=== PATIENT | female | born 1930 | race Caucasian/White ===

== ENCOUNTER → 2017-09-21 | Outpatient (CLI) | payer MEDICARE, OTHER ==
[~2017-09-21] MED LIST: ACHD5005 PO; AMOX-358 PO; ANTIBIOTIC PO; ASP81CT PO; ASP81TEC PO; ASPI-892 PO; CALC500T30 PO; CLOP75TA PO; CPR500T PO; EST45C VG; FNT25TD TD; GBPN300C PO; GBPN600T PO; HCT25T PO; HYDR1TAB PO; ITRACONAZOLE PO; LABE200T3 PO; LBT200T PO; LIDOCAINE; MELO-195 PO; NYST1000 PO; OXB5TCR PO; OXYB10TA PO; OXYC-188 PO; PROP60CA17 PO; PROP60TA16 PO; SIMV40TA2 PO; SIMV80TA3 PO; SULF1TAB35 PO
== END ==
LOC: CARD 10:25
PROVIDERS: ATTEND Internal Medicine
DX: I48.91 Unspecified atrial fibrillation (principal)
CPT/HCPCS: 93306

== ENCOUNTER 2017-11-02 10:17 | Emergency (ER) | payer MEDICARE ==
[~2017-11-02] VITALS: Ht 160 cm; Wt 74.5 kg
[~2017-11-02 10:17] MED LIST changes: -AMOX-358 PO
--- OUTSIDE RECORDS SUMMARY | 2017-11-02 10:25 | XMS REPORT | Clinical Summary ---
Author Author [facility] Organization [facility] Address Unknown Phone Unavailable Care Team Providers Care Lead Radiologic Technologist Name Role Phone Sheldon Spann MD Unavailable Krish Saba MD PCP Source Comments Some departments are not documenting in the electronic medical record. If you do not see the information that you expected, contact Release of Information in the Health Information Management department at [phone] for further assistance in locating additional records.[facility] Allergies Active Allergy Reactions Severity Noted Date Comments Sulfamethoxazole-Trimetho ITCHING 11/06/2011 prim Current Medications Prescription Sig. Disp. Refills Start End Date Status Date carvedilol (COREG) 12.5 Take 12.5 mg by mouth Active mg tablet twice daily with meals. clopidogrel (PLAVIX) 75 Take 75 mg by mouth Active mg daily. aspirin EC 81 mg tablet Take 81 mg by mouth Active daily. hydrochlorothiazide Take 25 mg by mouth Active (HYDRODIURIL) 25 mg daily. tablet gabapentin (NEURONTIN) Take 1,200 mg by mouth at Active 600 mg tablet bedtime daily. ERGOCALCIFEROL (VITAMIN Take 1 Tab by mouth Active D2) (VITAMIN D PO) daily. ACETAMINOPHEN (TYLENOL Take 2 Tabs by mouth Active ARTHRITIS PAIN PO) daily as needed. trimethoprim/sulfamethoxa Take 1 Tab by mouth twice Active zole (BACTRIM DS) 160/800 daily. mg tablet docusate (COLACE) 100 mg Take 1 Cap by mouth twice 90 Cap 0 08/12/19 Active capsule daily. 12 oxyCODONE-acetaminophen Take 1-2 Tabs by mouth 40 Tab 0 11/07/19 Active (PERCOCET; ENDOCET; every 4 hours as needed 12 ROXICET) 5/325 mg tablet for Pain. Max 12 tabs/day Active Problems Not on file Social History Tobacco Use Types Packs/Day Years Used Date Former Smoker Cigarettes 1 65 Quit: 06/29/2011 Alcohol Use Drinks/Week oz/Week Comments No Sex Assigned at Date Recorded Not on file Last Filed Vital Signs Vital Sign Reading Time Taken Blood Pressure 130/62 11/07/2011 7:20 AM CDT Pulse 61 11/07/2011 7:20 AM CDT Temperature 36.4 C (97.6 F) 11/07/2011 7:20 AM CDT Respiratory Rate - - Oxygen Saturation 92% 11/07/2011 7:20 AM CDT Inhaled Oxygen - - Concentration Weight 75.8 kg (167 lb) 11/06/2011 3:50 PM CDT Height 160 cm (5' 3") 11/06/2011 3:50 PM CDT Body Mass Index 29.58 11/06/2011 3:50 PM CDT Plan of Treatment Health Maintenance Due Date Last Done Comments PHYSICAL (COMPREHENSIVE) 1937 EXAM PERTUSSIS VACCINE 1942 TETANUS VACCINE 1948 SHINGLES VACCINE 1991 OSTEOPOROSIS SCREENING 1996 PNEUMONIA (PCV13/PPSV23) 1996 VACCINES (1 of 2 - PCV13) INFLUENZA VACCINE 02/25/2018 Results Not on filefrom Last 3 Months
[2017-11-02] MEDS ORDERED: NS IV 1000 ML 1,000 ML IV ONE (10:39)
[2017-11-02 11:04] LABS: BASOPHILS # (AUTO) 0.1 10^3/uL (0.0-0.1); BASOPHILS % (AUTO) 1 % (0-10); EOSINOPHILS # (AUTO) 0.1 10^3/uL (0.0-0.3); EOSINOPHILS % (AUTO) 1 % (0-10); HEMATOCRIT 50 % (35-52); HEMOGLOBIN 17.1 G/DL (11.5-16.0); LYMPHOCYTES # (AUTO) 1.9 X 10^3 (1.0-4.0); LYMPHOCYTES % (AUTO) 22 % (12-44); MEAN CORPUSCULAR HEMOGLOBIN 32 PG (25-34); MEAN CORPUSCULAR HGB CONC 34 G/DL (32-36); MEAN CORPUSCULAR VOLUME 95 FL (80-99); MEAN PLATELET VOLUME 11.7 FL (7.4-10.4); MONOCYTES # (AUTO) 0.7 X 10^3 (0.0-1.0); MONOCYTES % (AUTO) 9 % (0-12); NEUTROPHILS # (AUTO) 5.8 X 10^3 (1.8-7.8); NEUTROPHILS % (AUTO) 67 % (42-75); PLATELET COUNT 215 10^3/uL (130-400); RED BLOOD COUNT 5.27 10^6/uL (4.35-5.85); RED CELL DISTRIBUTION WIDTH 15.2 % (10.0-14.5); WHITE BLOOD COUNT 8.6 10^3/uL (4.3-11.0)
--- NOTE | 2017-11-02 11:09 | ED General ---
General Stated Complaint: RT FOOT PAIN Source of Information: Patient, Family Exam Limitations: No Limitations History of Present Illness Date Seen by Provider: Nov 02, 2017 Time Seen by Provider: 11:00 Initial Comments Here with report of bilateral foot pain and erythema with right greater than left. Has been treated for ulcers on her feet. Apparently started as blisters and have been treated by her primary care physician, Dr. Saba. Denies fevers chills. States that she has not been eating or drinking well. Arrives with heart rate in the range of 115-140. Patient does not remember history of fast heart rate and she apparently is in atrial fibrillation right now. She denies previous history of this as well. She arrives with caregiver. Denies nausea, vomiting, diarrhea or chest pain. Timing/Duration: 3-4 Days Severity: Moderate Associated Systoms: No Cough, No Fever/Chills, No Nausea/Vomiting, No Shortness of Air, No Weakness Allergies and Home Medications Allergies Coded Allergies: Codeine (Unverified Allergy, Mild, sore throat, 03/23/13) Sulfamethoxazole (Verified Adverse Reaction, RASH, 03/23/13) trimethoprim (Verified Adverse Reaction, RASH, 03/23/13) Home Medications Aspirin 81 Mg Tablet.dr, 81 MG PO DAILY, (Reported) Clopidogrel Bisulfate 75 Mg Tablet, 75 MG PO DAILY, (Reported) Estrogens Conjugated 45 Gm Cr, 1 GM VG HS, (Reported) HOLD FOR 1 WEEK THEN RESUME Gabapentin 600 Mg Tab, 600 MG PO HS, (Reported) Hydrochlorothiazide 25 Mg Tab, 25 MG PO DAILY, (Reported) Patient Home Medication List Home Medication List Reviewed: Yes (changed his Xarelto and off Plavix.) Review of Systems Constitutional: see HPI; No chills, No fever EENTM: no symptoms reported Respiratory: no symptoms reported Cardiovascular: see HPI; No chest pain, No palpitations Gastrointestinal: No abdominal pain, No nausea, No vomiting Genitourinary: no symptoms reported Musculoskeletal: No joint pain, No joint swelling Skin: change in color, lesions Psychiatric/Neurological: No Symptoms Reported All Other Systems Reviewed Negative Unless Noted: Yes Past Kkbedhn-Hrtzjx-Wgxmik Hx Past Med/Social Hx: Reviewed Nursing Past Med/Soc Hx Patient Social History Alcohol Use: Occasionally Uses Recreational Drug Use: No Smoking Status: Current Everyday Smoker Recent Foreign Travel: No Contact w/Someone Who Travel: No Immunizations Up To Date Tetanus Booster (TDap): More than 5yrs Date of Pneumonia Vaccine: Jan 27, 2000 Past Medical History Surgeries: Yes CABG Respiratory: No Cardiac: Yes Atrial Fibrillation, High Cholesterol, Hypertension Neurological: Yes TIA Reproductive Disorders: No Sexually Transmitted Disease: No HIV/AIDS: No Gastrointestinal: No Musculoskeletal: Yes Arthritis Family Medical History Reviewed Nursing Family Hx No Pertinent Family Hx Physical Exam Vital Signs Vital Signs - First Documented 11/02/17 10:24 Temp 98.7 Pulse 130 Resp 14 B/P (MAP) 115/85 (95) Pulse Ox 95 Capillary Refill : General Appearance: No Apparent Distress, WD/WN HEENT: PERRL/EOMI, Pharynx Normal Neck: Non Tender, Supple Respiratory: Lungs Clear, Normal Breath Sounds Cardiovascular: Irregularly Irregular, Tachycardia Gastrointestinal: Non Tender, Soft Back: Normal Inspection, No CVA Tenderness, No Vertebral Tenderness Extremity: Normal Range of Motion, Other (lesions as described below.) Neurologic/Psychiatric: Alert, Oriented x3 Skin: Warm/Dry, Other (erythema from the toes to the mid tibia level on the right with multiple small ulcers noted. Also erythema throughout the foot and ankle on the left multiple small ulcers. Patient had Urban wrap's and there appears to be edema above the level of where the Urban wrap stopped bilateral and that is just below the knee.) Focused Exam Lactate Level 11/02/17 10:50: Lactic Acid Level 1.66 Lactic Acid Level Laboratory Tests Test 11/02/17 10:50 Lactic Acid Level 1.66 MMOL/L (0.50-2.00) Progress/Results/Core Measures Suspected Sepsis SIRS Temperature: Pulse: Respiratory Rate: Laboratory Tests 11/02/17 10:50: White Blood Count 8.6 Blood Pressure / Mean: 11/02/17 10:50: Lactic Acid Level 1.66 Laboratory Tests 11/02/17 10:50: Creatinine 0.82, Platelet Count 215, Total Bilirubin 0.9 Results/Orders Lab Results Laboratory Tests Test 11/02/17 10:50 Range/Units White Blood Count 8.6 4.3-11.0 10^3/uL Red Blood Count 5.27 4.35-5.85 10^6/uL Hemoglobin 17.1 H 11.5-16.0 G/DL Hematocrit 50 35-52 % Mean Corpuscular Volume 95 80-99 FL Mean Corpuscular Hemoglobin 32 25-34 PG Mean Corpuscular Hemoglobin Concent 34 32-36 G/DL Red Cell Distribution Width 15.2 H 10.0-14.5 % Platelet Count 215 130-400 10^3/uL Mean Platelet Volume 11.7 H 7.4-10.4 FL Neutrophils (%) (Auto) 67 42-75 % Lymphocytes (%) (Auto) 22 12-44 % Monocytes (%) (Auto) 9 0-12 % Eosinophils (%) (Auto) 1 0-10 % Basophils (%) (Auto) 1 0-10 % Neutrophils # (Auto) 5.8 1.8-7.8 X 10^3 Lymphocytes # (Auto) 1.9 1.0-4.0 X 10^3 Monocytes # (Auto) 0.7 0.0-1.0 X 10^3 Eosinophils # (Auto) 0.1 0.0-0.3 10^3/uL Basophils # (Auto) 0.1 0.0-0.1 10^3/uL Sodium Level 143 135-145 MMOL/L Potassium Level 4.3 3.6-5.0 MMOL/L Chloride Level 107 98-107 MMOL/L Carbon Dioxide Level 25 21-32 MMOL/L Anion Gap 11 5-14 MMOL/L Blood Urea Nitrogen 19 H 7-18 MG/DL Creatinine 0.82 0.60-1.30 MG/DL Estimat Glomerular Filtration Rate > 60 BUN/Creatinine Ratio 23 Glucose Level 102 70-105 MG/DL Lactic Acid Level 1.66 0.50-2.00 MMOL/L Calcium Level 9.0 8.5-10.1 MG/DL Total Bilirubin 0.9 0.1-1.0 MG/DL Aspartate Amino Transf (AST/SGOT) 19 5-34 U/L Alanine Aminotransferase (ALT/SGPT) 13 0-55 U/L Alkaline Phosphatase 180 H 40-136 U/L C-Reactive Protein High Sensitivity 0.27 0.00-0.50 MG/DL Total Protein 6.6 6.4-8.2 GM/DL Albumin 3.6 3.2-4.5 GM/DL My Orders Orders - PRABHA ROGERS MD Cbc With Automated Diff (11/02/17 10:39) Comprehensive Metabolic Panel (11/02/17 10:39) Hs C Reactive Protein (11/02/17 10:39) Lactic Acid Analyzer (11/02/17 10:39) Blood Culture (11/02/17 10:39) Wound Culture (11/02/17 10:39) Saline Lock/Iv-Start (11/02/17 10:39) Chest 1 View, Ap/Pa Only (11/02/17 10:39) Ekg Tracing (11/02/17 10:39) Saline Lock/Iv-Start (11/02/17 10:39) Ns Iv 1000 Ml (Sodium Chloride 0.9%) (11/02/17 10:39) Metoprolol Succinate (Xl) Tab (Toprol Xl (11/02/17 12:15) Medications Given in ED Current Medications Medications Dose Ordered Sig/Alicia Route Start Time Stop Time Status Last Admin Dose Admin Sodium Chloride 1,000 ml @ 0 mls/hr Q0M ONCE IV 11/02/17 10:39 11/02/17 10:43 DC 11/02/17 11:06 1,000 MLS/HR Vital Signs/I&O 11/02/17 10:24 Temp 98.7 Pulse 130 Resp 14 B/P (MAP) 115/85 (95) Pulse Ox 95 Capillary Refill : Progress Note : Progress Note Seen and evaluated. IV, labs, EKG and chest x-ray ordered. Normal saline 1 L bolus. Patient is on Xarelto and does appear to have atrial fibrillation. This was confirmed on EKG. Rate is improving after initiation of normal saline. Monitor patient. 1210: No acute findings and rate is improving. I did discuss with her about her medication. She actually takes her meds sporadically throughout the day except for her antibiotic which she takes in the morning and evening. She has not taken her metoprolol today yet. Did discuss the case with Dr. Saba and we had considered doubling her metoprolol but I believe that she may be getting rebound effect and hesitate to double the dose in light of the new information. We will go ahead and give her her regular dose now. We will switch the antibiotics to Augmentin and stop the doxycycline. This is discussed with the patient and her caregiver. She has appointment with Dr. Saba on Sunday and she will keep that appointment. No indications for admission currently but we will need to watch the legs for worsening condition. Discharged home with return precautions. Patient verbalize understanding instructions and agreement with plan. 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 Patient has had block previously but typically in sinus rhythm. I do not find any previous atrial fibrillation so this appears new. No evidence of ST elevation [place]. Change from previous of 23 March 2013. Interpreted by me. Diagnostic Imaging Diagonstic Imaging: Xray Plain Films/CT/US/NM/MRI: chest Comments VIA [facility], [facility] [place], [place] NAME: [facility] REC#: [id number] PT STATUS: REG ER : 1930 PHYSICIAN: PRABHA ROGERS MD ADMIT DATE: 11/02/17/ER Draft Date of Exam:11/02/17 CHEST 1 VIEW, AP/PA ONLY INDICATION: Not provided COMPARISON: 09/02/2010 FINDINGS: Upright portable view of the chest is obtained. Heart size is mildly enlarged but unchanged. There is no pneumothorax, mediastinal widening or pleural fluid. The pulmonary vasculature appears unremarkable. Lungs appear clear. IMPRESSION: No acute abnormality seen. Mild cardiomegaly without evidence of failure. Dictated on workstation # [id number] Dict: 11/02/17 1131 Trans: 11/02/17 1139 LARRY [id number] Interpreted by: GAOR GARZA DO Electronically signed by: Departure Impression Primary Impression: Neuropathy of right foot Additional Impressions: Venous stasis ulcers of both lower extremities Atrial fibrillation Qualified Codes: I48.91 - Unspecified atrial fibrillation Disposition: 01 HOME, SELF-CARE Condition: Stable Departure-Patient Inst. Decision time for Depature: 12:18 Referrals: ROMELIA SABA MD (PCP/Family) Primary Care Physician Patient Instructions: Cellulitis (Skin Infection), Adult (DC), Peripheral Neuropathy (DC) Add. Discharge Instructions: Stop the doxycycline. Start Augmentin. You should take this with food to prevent stomach upset and diarrhea that can be common when taking this medicine. Follow-up with Dr. Saba on Sunday for recheck and further evaluation. Return for worse pain, fever, vomiting, weakness, breathing problems or other concerns as needed. You should take your metoprolol daily at the same time and this was reinitiated at noon today. Copy Copies To 1: ROMELIA SABA MD, TIMOTHY D MD Nov 02, 2017 11:09
[2017-11-02 11:25] LABS: ALANINE AMINOTRANSFERASE 13 U/L (0-55); ALBUMIN 3.6 GM/DL (3.2-4.5); ALKALINE PHOSPHATASE 180 U/L (40-136); BILIRUBIN,TOTAL 0.9 MG/DL (0.1-1.0); BUN/CREATININE RATIO 23; CARBON DIOXIDE 25 MMOL/L (21-32); CHLORIDE 107 MMOL/L (98-107); CREATININE SERUM 0.82 MG/DL (0.60-1.30); GFR ESTIMATED > 60; GLUCOSE 102 MG/DL (70-105); POTASSIUM 4.3 MMOL/L (3.6-5.0); SODIUM 143 MMOL/L (135-145); TOTAL PROTEIN 6.6 GM/DL (6.4-8.2)
--- NOTE | 2017-11-02 11:40 | Diagnostic Imaging Report ---
INDICATION: Not provided COMPARISON: 09/02/2010 FINDINGS: Upright portable view of the chest is obtained. Heart size is mildly enlarged but unchanged. There is no pneumothorax, mediastinal widening or pleural fluid. The pulmonary vasculature appears unremarkable. Lungs appear clear. IMPRESSION: No acute abnormality seen. Mild cardiomegaly without evidence of failure. Dictated by: Dictated on workstation # [id number]
[2017-11-02] MEDS ORDERED: meTOprolol SUCCINATE 100 MG (TOPROL XL) TAB PO ONE (12:15)
[2017-11-02] MEDS ORDERED: AMOX-358 PO (13:03)
[2017-11-02 13:24] VITALS: BP 112/62
== END 2017-11-02 13:24 | disposition home or self-care (01) ==
LOC: EDUNIT# 10:17 → ER 10:21
DX: G57.91 Unspecified mononeuropathy of right lower limb (principal); I87.8 Other specified disorders of veins; I48.91 Unspecified atrial fibrillation; E78.00 Pure hypercholesterolemia, unspecified; I10 Essential (primary) hypertension; F17.200 Nicotine dependence, unspecified, uncomplicated; Z86.73 Personal history of transient ischemic attack (TIA), and cerebral infarction without residual deficits; Z95.1 Presence of aortocoronary bypass graft; Z79.82 Long term (current) use of aspirin; Z88.1 Allergy status to other antibiotic agents; Z88.2 Allergy status to sulfonamides; Z88.5 Allergy status to narcotic agent
CPT/HCPCS: 36415; 71045; 80053; 83605; 85025; 86141; 87040; 87070; 87077; 87186; 87205; 96360; 96361

== ENCOUNTER → 2017-11-08 | Outpatient (CLI) | payer MEDICARE ==
[~2017-11-08] MED LIST changes: +AMOX-358 PO
== END ==
LOC: WOUNDCARE 09:49
PROVIDERS: ATTEND Nurse Practitioner
DX: L97.212 Non-pressure chronic ulcer of right calf with fat layer exposed (principal); I87.333 Chronic venous hypertension (idiopathic) with ulcer and inflammation of bilateral lower extremity; L97.512 Non-pressure chronic ulcer of other part of right foot with fat layer exposed; L97.522 Non-pressure chronic ulcer of other part of left foot with fat layer exposed
CPT/HCPCS: 11042

== ENCOUNTER → 2017-11-29 | Outpatient (CLI) | payer MEDICARE ==
[~2017-11-29] MED LIST changes: +ACET-2267 PO; +ATOR40TA70 PO; +CLOP75TA28 PO; +CLOP75TA69 PO; +DILT120C82 PO; +DILT180C54 PO; +LIDO30JE3 TOP; +METO-395 PO; +PANT40SU PO; +PANT40TA3 PO; +POVI3780 TP; +PRD20T PO; +RIVA15TA PO; +TRAM50TA2 PO; +TRIA1CAP4 PO; +TRIA1TAB3 PO
== END ==
LOC: WOUNDCARE 09:20
PROVIDERS: ATTEND Nurse Practitioner
DX: L97.212 Non-pressure chronic ulcer of right calf with fat layer exposed (principal); L97.512 Non-pressure chronic ulcer of other part of right foot with fat layer exposed; L97.522 Non-pressure chronic ulcer of other part of left foot with fat layer exposed; I70.232 Atherosclerosis of native arteries of right leg with ulceration of calf; I70.235 Atherosclerosis of native arteries of right leg with ulceration of other part of foot; I70.245 Atherosclerosis of native arteries of left leg with ulceration of other part of foot; I87.333 Chronic venous hypertension (idiopathic) with ulcer and inflammation of bilateral lower extremity
CPT/HCPCS: 11042

== ENCOUNTER → 2017-12-06 | Outpatient (CLI) | payer MEDICARE | LOC: WOUNDCARE 09:17 | PROVIDERS: ATTEND Surgery | DX: I70.232 Atherosclerosis of native arteries of right leg with ulceration of calf (principal); L97.212 Non-pressure chronic ulcer of right calf with fat layer exposed; I70.235 Atherosclerosis of native arteries of right leg with ulceration of other part of foot; L97.512 Non-pressure chronic ulcer of other part of right foot with fat layer exposed; I70.245 Atherosclerosis of native arteries of left leg with ulceration of other part of foot; L97.522 Non-pressure chronic ulcer of other part of left foot with fat layer exposed; I87.333 Chronic venous hypertension (idiopathic) with ulcer and inflammation of bilateral lower extremity | CPT/HCPCS: 99214 ==

== ENCOUNTER 2017-12-09 09:53 | Observation (INO) | payer MEDICARE ==
[~2017-12-09] VITALS: Ht 154.9 cm; Wt 56.3 kg
[~2017-12-09 09:53] MED LIST changes: -ACET-2267 PO; -CLOP75TA69 PO; -DILT180C54 PO; -LIDO30JE3 TOP; -PANT40TA3 PO; -POVI3780 TP; -PRD20T PO; -TRAM50TA2 PO; -TRIA1TAB3 PO
--- NOTE | 2017-12-09 10:25 | ED Lower Extremity ---
General Chief Complaint: Lower Extremity Stated Complaint: FALL NO SX Nursing Triage Note: States that she got tangled in walker while going around bed and fell. No c/o from the fall but states her balance has been off and wants it eval. Also has a large ulcerative area to rt rose with red skin that has been there for 10- years due to a dog bite. Sees a wound dr and wants the leg eval, states that it is draining Nursing Sepsis Screen: No Definite Risk Source: patient, EMS Exam Limitations: no limitations History of Present Illness Date Seen by Provider: Dec 09, 2017 Time Seen by Provider: 10:21 Initial Comments This 87-year-old white female presents after she inadvertently tripped and fell this morning walking around her bed. The patient fell on her gluteal area but sustained no significant injury. Patient is concerned that she may have injured her right leg which has had long-standing osteomyelitis. She does not remember any discrete injury to the right leg. She is not having any particular pain in the right leg. Patient has a history of A. fib. She denies intercurrent symptoms of headache, stiff neck, fever, cough, nausea, vomiting, lateralizing, or localizing neurologic complaints, or change in her medication. Allergies and Home Medications Allergies Coded Allergies: codeine (Unverified Allergy, Mild, sore throat, 12/09/17) sulfamethoxazole (Verified Adverse Reaction, Unknown, RASH, 11/02/17) trimethoprim (Verified Adverse Reaction, Unknown, RASH, 11/02/17) Home Medications Atorvastatin Calcium 40 Mg Tablet, 40 MG PO HS, (Reported) Clopidogrel Bisulfate 75 Mg Tablet, 75 MG PO DAILY Prescribed by: JUAN JOSE BILLINGS on 11/22/17801 Diltiazem HCl 120 Mg Cap.er.24h, 120 MG PO DAILY, (Reported) Metoprolol Succinate 100 Mg Tab.er.24h, 100 MG PO DAILY, (Reported) Pantoprazole Sodium 40 Mg Granpkt.dr, 40 MG PO DAILY Prescribed by: JUAN JOSE BILLINGS on 11/22/17801 Rivaroxaban 15 Mg Tablet, 15 MG PO DAILY, (Reported) Triamterene/Hydrochlorothiazid 1 Each Capsule, 1 EACH PO DAILY, (Reported) Patient Home Medication List Home Medication List Reviewed: Yes Constitutional: No chills, No fever EENTM: No hearing loss, No vision loss Respiratory: No cough Cardiovascular: No chest pain, No palpitations Gastrointestinal: No abdominal pain, No nausea, No vomiting Genitourinary: no symptoms reported : No Musculoskeletal: No back pain, No muscle pain, No neck pain Skin: No change in color Psychiatric/Neurological: No Symptoms Reported Past Gwbcigj-Tzbowq-Ryikal Hx Past Med/Social Hx: Reviewed Nursing Past Med/Soc Hx Patient Social History Alcohol Use: Denies Use Recreational Drug Use: No Smoking Status: Former Smoker Type Used: Cigars Former Smoker, Quit: Nov 11, 2017 2nd Hand Smoke Exposure: No Recent Foreign Travel: No Contact w/Someone Who Travel: No Recent Infectious Disease Expo: No Recent Hopitalizations: No (STENTS) Physical Abuse: No Sexual Abuse: No Mistreated: No Fear: No Immunizations Up To Date Tetanus Booster (TDap): More than 5yrs Date of Pneumonia Vaccine: Jan 27, 2000 Past Medical History Surgeries: Yes CABG Respiratory: No Cardiac: Yes Atrial Fibrillation, High Cholesterol, Hypertension Neurological: Yes TIA Reproductive Disorders: No Sexually Transmitted Disease: No HIV/AIDS: No Gastrointestinal: No Musculoskeletal: Yes Arthritis Endocrine: No Cancer: No Psychosocial: No Nursing Suicide Risk Score: 0 Integumentary: No Blood Disorders: No Family Medical History Reviewed Nursing Family Hx No Pertinent Family Hx Physical Exam Vital Signs Vital Signs - First Documented 12/09/17 09:53 Temp 98.0 Pulse 92 Resp 12 B/P (MAP) 112/79 (90) Pulse Ox 97 Capillary Refill : Less Than 3 Seconds Height, Weight, BMI Height: 5'2.00" Weight: 128lbs. 0.0oz. 58.771115sk; 22.3 BMI Method:Estimated General Appearance: WD/WN, no apparent distress HEENT: normal ENT inspection Neck: full range of motion, supple Cardiovascular: irregularly irregular Respiratory: lungs clear Gastrointestinal: normal bowel sounds, soft Back: normal inspection Legs: bilateral leg other (there are chronic scars and previous surgeries over the right leg and foot. The extremity is not cold. Although the chronic osteo- drains frequently there is no evidence of active drainage at this point.) Progress/Results/Core Measures Results/Orders Lab Results Laboratory Tests Test 12/09/17 10:17 Range/Units White Blood Count 12.8 H 4.3-11.0 10^3/uL Red Blood Count 4.77 4.35-5.85 10^6/uL Hemoglobin 15.1 11.5-16.0 G/DL Hematocrit 45 35-52 % Mean Corpuscular Volume 95 80-99 FL Mean Corpuscular Hemoglobin 32 25-34 PG Mean Corpuscular Hemoglobin Concent 33 32-36 G/DL Red Cell Distribution Width 16.8 H 10.0-14.5 % Platelet Count 353 130-400 10^3/uL Mean Platelet Volume 11.1 H 7.4-10.4 FL Neutrophils (%) (Auto) 81 H 42-75 % Lymphocytes (%) (Auto) 10 L 12-44 % Monocytes (%) (Auto) 9 0-12 % Eosinophils (%) (Auto) 0 0-10 % Basophils (%) (Auto) 0 0-10 % Neutrophils # (Auto) 10.3 H 1.8-7.8 X 10^3 Lymphocytes # (Auto) 1.3 1.0-4.0 X 10^3 Monocytes # (Auto) 1.1 H 0.0-1.0 X 10^3 Eosinophils # (Auto) 0.1 0.0-0.3 10^3/uL Basophils # (Auto) 0.1 0.0-0.1 10^3/uL Sodium Level 140 135-145 MMOL/L Potassium Level 4.7 3.6-5.0 MMOL/L Chloride Level 104 98-107 MMOL/L Carbon Dioxide Level 21 21-32 MMOL/L Anion Gap 15 H 5-14 MMOL/L Blood Urea Nitrogen 33 H 7-18 MG/DL Creatinine 1.59 H 0.60-1.30 MG/DL Estimat Glomerular Filtration Rate 31 BUN/Creatinine Ratio 21 Glucose Level 83 70-105 MG/DL Calcium Level 9.6 8.5-10.1 MG/DL Total Bilirubin 1.1 H 0.1-1.0 MG/DL Aspartate Amino Transf (AST/SGOT) 27 5-34 U/L Alanine Aminotransferase (ALT/SGPT) 15 0-55 U/L Alkaline Phosphatase 104 40-136 U/L B-Type Natriuretic Peptide 704.1 H <100.0 PG/ML Total Protein 6.8 6.4-8.2 GM/DL Albumin 3.9 3.2-4.5 GM/DL My Orders Orders - ROMELIA VILLEGAS MD Tibia/Fibula, Right, 2 Views (12/09/17 09:59) Cbc With Automated Diff (12/09/17 09:59) Comprehensive Metabolic Panel (12/09/17 09:59) Ua Culture If Indicated (12/09/17 09:59) Chest 1 View, Ap/Pa Only (12/09/17 09:59) Ekg Tracing (12/09/17 09:59) BNP (12/09/17 09:59) Ct Chest Wo (12/09/17 11:19) Vital Signs/I&O 12/09/17 09:53 Temp 98.0 Pulse 92 Resp 12 B/P (MAP) 112/79 (90) Pulse Ox 97 Blood Pressure Mean: 90 Progress Progress Note : Time: 12:13 Progress Note The patient's workup in the emergency department failed to show evidence of acute pathology in terms of the patient's radiographic findings of her right leg. There was a left lung mass on chest x-ray. CT was performed which demonstrated only minimal enlargement over the last 7 years from the patient's last CT. Although this certainly appears to be benign radiology recommended a PET scan for further evaluation. Patient's laboratory evaluation was essentially unremarkable. The patient's EKG demonstrated atrial fibrillation with average ventricular response rate of approximately 90. The patient remained unchanged and stable throughout her evaluation in the emergency department. I recommended the patient follow up closely with her primary care physician tomorrow and consider further evaluation of the left lung mass as recommended by her physician. Departure Impression Primary Impression: Fall Qualified Codes: W19.XXXA - Unspecified fall, initial encounter Additional Impressions: Mass of left lung Atrial fibrillation Qualified Codes: I48.2 - Chronic atrial fibrillation Disposition: 01 HOME, SELF-CARE Condition: Improved Departure-Patient Inst. Decision time for Depature: 12:16 Referrals: ROMELIA BALES MD (PCP/Family) Primary Care Physician Patient Instructions: Atrial Fibrillation Add. Discharge Instructions: Close follow-up with your doctor tomorrow. Rest at home today. Return of any problems or questions. Employer Walker for gait assistance. All discharge instructions reviewed with patient and/or family. Voiced understanding. ROMELIA VILLEGAS MD Dec 09, 2017 10:25
[2017-12-09 10:27] LABS: BASOPHILS # (AUTO) 0.1 10^3/uL (0.0-0.1); BASOPHILS % (AUTO) 0 % (0-10); EOSINOPHILS # (AUTO) 0.1 10^3/uL (0.0-0.3); EOSINOPHILS % (AUTO) 0 % (0-10); HEMATOCRIT 45 % (35-52); HEMOGLOBIN 15.1 G/DL (11.5-16.0); LYMPHOCYTES # (AUTO) 1.3 X 10^3 (1.0-4.0); LYMPHOCYTES % (AUTO) 10 % (12-44); MEAN CORPUSCULAR HEMOGLOBIN 32 PG (25-34); MEAN CORPUSCULAR HGB CONC 33 G/DL (32-36); MEAN CORPUSCULAR VOLUME 95 FL (80-99); MEAN PLATELET VOLUME 11.1 FL (7.4-10.4); MONOCYTES # (AUTO) 1.1 X 10^3 (0.0-1.0); MONOCYTES % (AUTO) 9 % (0-12); NEUTROPHILS # (AUTO) 10.3 X 10^3 (1.8-7.8); NEUTROPHILS % (AUTO) 81 % (42-75); PLATELET COUNT 353 10^3/uL (130-400); RED BLOOD COUNT 4.77 10^6/uL (4.35-5.85); RED CELL DISTRIBUTION WIDTH 16.8 % (10.0-14.5); WHITE BLOOD COUNT 12.8 10^3/uL (4.3-11.0)
--- NOTE | 2017-12-09 10:31 | Diagnostic Imaging Report ---
INDICATION: Fall with pain in the right lower leg. Time of exam 10:21 AM 2 views of the right tibia and fibula were obtained. There is generalized demineralization. Alignment at the right knee and ankle is normal. There are surgical clips in the soft tissues of the distal lower extremity. The tibia and fibula appear to be intact. No fractures are seen. IMPRESSION: No acute bony abnormality is detected. Dictated by: Dictated on workstation # [id number]
--- NOTE | 2017-12-09 10:42 | Diagnostic Imaging Report ---
INDICATION: Fall. Time of exam: 10:19 AM Comparison is made with prior chest from 11/21/2017. Heart size is normal. There is a rounded density identified in left midlung measuring 18 mm in size. This is suspicious for a mass. No infiltrates are seen. No effusion or pneumothorax is identified. IMPRESSION: Rounded density left mid lung, suspicious for a developing mass. CT of the chest is recommended for further evaluation. Dictated by: Dictated on workstation # [id number]
[2017-12-09 10:44] LABS: ALBUMIN 3.9 GM/DL (3.2-4.5); BILIRUBIN,TOTAL 1.1 MG/DL (0.1-1.0); CALCIUM 9.6 MG/DL (8.5-10.1); CREATININE SERUM 1.59 MG/DL (0.60-1.30); POTASSIUM 4.7 MMOL/L (3.6-5.0); TOTAL PROTEIN 6.8 GM/DL (6.4-8.2)
--- NOTE | 2017-12-09 12:08 | Diagnostic Imaging Report ---
PROCEDURE: CT chest without contrast. TECHNIQUE: Multiple contiguous axial images were obtained through the chest without the use of intravenous contrast. INDICATION: Abnormal chest x-ray with questionable mass. Study is performed for further evaluation. Correlation is made with chest radiograph earlier in the same day. Correlation is also made with prior CT chest from 09/06/2010. The rounded opacity noted on chest x-ray corresponds to a circumscribed soft tissue nodule in the subpleural left lower lobe posterolaterally. This measures 16 mm compared with approximately [address] 7 years earlier. Very little growth is reassuring. There is some atelectasis or scarring in the lingula. No other abnormal parenchymal opacities are seen. No axillary lymphadenopathy is identified. No definite mediastinal or hilar lymphadenopathy is seen although this is limited without intravenous contrast. There are coronary arterial calcifications present. There is no pleural or pericardial fluid. The upper abdomen is unremarkable apart from low densities within the bilateral adrenal glands consistent with adrenal adenomas. This is similar to prior CT. IMPRESSION: There has been mild interval increase in size of the circumscribed nodule in the posterior lateral left lower lobe when compared with prior chest CT from 7 years earlier. Very minimal growth is reassuring for a benign etiology, however, continued close followup and/or correlation with PET scan may be useful for further evaluation. Remainder of the chest is unremarkable. Dictated by: Dictated on workstation # [id number]
[2017-12-09 14:18] LABS: CLARITY,URINE SLIGHTLY CLOUDY; COLOR,URINE AMBER; GLUCOSE, URINE (UA) NEGATIVE (NEGATIVE); KETONES,URINE 1+ (NEGATIVE); LEUKOCYTE ESTERASE ,URINE 3+ (NEGATIVE); NITRITE,URINE NEGATIVE (NEGATIVE); PH,URINE 5 (5-9); PROTEIN,URINE 2+ (NEGATIVE); UROBILINOGEN,URINE 1 MG/DL (NORMAL)
[2017-12-09 14:26] LABS: BACTERIA,URINE MODERATE /HPF; BILIRUBIN,URINE 2+ (NEGATIVE); WBC,URINE 25-50 /HPF
[2017-12-09] MEDS ORDERED: cefTRIAXone INJECTION 1,000 MG in NS (IVPB) 50 ML IV ONE (14:45)
[2017-12-09 17:58] VITALS: BP 111/64
[2017-12-09] MEDS ORDERED: CATHETER FLUSH 10 ML SYR IV PRN (18:15)
[2017-12-09 19:46] VITALS: BP 115/70
[2017-12-09] MEDS: CATHETER FLUSH 10 ML SYR IV SCH (22:11)
[2017-12-10] VITALS (7 sets, daily range): BP systolic 94–117; BP diastolic 39–74
[2017-12-10] MEDS: CATHETER FLUSH 10 ML SYR IV SCH ×3 (05:33→21:28)
[2017-12-10 05:57] LABS: BASOPHILS # (AUTO) 0.1 10^3/uL (0.0-0.1); BASOPHILS % (AUTO) 0 % (0-10); EOSINOPHILS # (AUTO) 0.1 10^3/uL (0.0-0.3); EOSINOPHILS % (AUTO) 1 % (0-10); HEMATOCRIT 45 % (35-52); HEMOGLOBIN 15.3 G/DL (11.5-16.0); LYMPHOCYTES # (AUTO) 1.5 X 10^3 (1.0-4.0); LYMPHOCYTES % (AUTO) 11 % (12-44); MEAN CORPUSCULAR HEMOGLOBIN 32 PG (25-34); MEAN CORPUSCULAR HGB CONC 34 G/DL (32-36); MEAN CORPUSCULAR VOLUME 94 FL (80-99); MONOCYTES # (AUTO) 1.3 X 10^3 (0.0-1.0); MONOCYTES % (AUTO) 9 % (0-12); NEUTROPHILS # (AUTO) 10.7 X 10^3 (1.8-7.8); NEUTROPHILS % (AUTO) 78 % (42-75); PLATELET COUNT 268 10^3/uL (130-400); RED BLOOD COUNT 4.77 10^6/uL (4.35-5.85); RED CELL DISTRIBUTION WIDTH 16.7 % (10.0-14.5); WHITE BLOOD COUNT 13.7 10^3/uL (4.3-11.0)
[2017-12-10 06:21] LABS: ALBUMIN 3.4 GM/DL (3.2-4.5); BILIRUBIN,TOTAL 0.9 MG/DL (0.1-1.0); CALCIUM 9.1 MG/DL (8.5-10.1); CREATININE SERUM 1.24 MG/DL (0.60-1.30); POTASSIUM 3.8 MMOL/L (3.6-5.0); TOTAL PROTEIN 6.2 GM/DL (6.4-8.2)
--- NOTE | 2017-12-10 08:45 | History & Physical-Hospitalist ---
History of Present Illness HPI/Chief Complaint Mrs. Cowan is an 87-year-old white female who apparently fell at home earlier in the day. There was no initial pain but she became worried that she may have injured her right leg. She has known significant peripheral vascular disease and nonhealing wounds secondary to this. She told the emergency room physician she had chronic osteomyelitis but this has not been documented by any lab or radiologic evaluation that I'm aware of. She denied any urinary symptoms however she did have pyuria with significant bacteriuria. A friend later came assume that she been increasingly confused at home. To me she admitted pleasant hallucinations seeing animals in her home like rabbits and squirrels. She did see one snake in the yard was not likely there nonthreatening. For the past several months she has been losing weight and thus far there has not been significant healing of a large dorsal ischemic foot ulcer post posterior tibial angioplasty per Dr. Marquez. She is now 3-4 weeks out as I recall. She did report she's noticed increased ankle pain worse with range of motion little different than the usual neuropathic-type lancinating right foot pain she has had in the past. She is not sure how long this is been going on. She denied night sweats chills or fever. Date Seen 12/10/17 Time Seen by Provider: 08:00 Attending Physician Dolly Christensen MD PCP Krish Saba MD Referring Physician Date of Admission Dec 09, 2017 at 16:25 Home Medications & Allergies Home Medications Reviewed patient Home Medication Reconciliation performed by pharmacy medication reconciliations tower technician and/or nursing. Patients Allergies have been reviewed. Allergies Allergies Coded Allergies codeine (Unverified Allergy, Mild, sore throat, 12/09/17) levofloxacin (Verified Allergy, Unknown, 12/09/17) sulfamethoxazole (Verified Adverse Reaction, Unknown, RASH, 11/02/17) trimethoprim (Verified Adverse Reaction, Unknown, RASH, 11/02/17) Past Hgucrnj-Aiqxol-Prwehf Hx Past Med/Social Hx: Reviewed Nursing Past Med/Soc Hx, Reviewed and Corrections made Patient Social History Alcohol Use: Denies Use Recreational Drug Use: No Smoking Status: Former Smoker Former Smoker, Quit: Nov 11, 2017 Type Used: Cigars 2nd Hand Smoke Exposure: No Physical Abuse Screen: No Sexual Abuse: No Recent Foreign Travel: No Contact w/other who traveled: No Recent Hopitalizations: No Recent Infectious Disease Expo: No Immunizations Up To Date Tetanus Booster (TDap): More than 5yrs Date of Pneumonia Vaccine: Jan 27, 2000 Seasonal Allergies Seasonal Allergies: No Past Medical History Surgeries: CABG Cardiac: Atrial Fibrillation, High Cholesterol, Hypertension Neurological: TIA Reproductive: No Sexually Transmitted Disease: No HIV/AIDS: No Musculoskeletal: Arthritis Hearing Impairment: Denies History of Blood Disorders: No Family History Reviewed Nursing Family Hx Patient reports no known family medical history. No Pertinent Family Hx Review of Systems Constitutional: no symptoms reported, see HPI, weight loss Respiratory: no symptoms reported, see HPI; No cough, No dyspnea on exertion, No hemoptysis, No orthopnea, No phlegm, No short of breath Cardiovascular: no symptoms reported, see HPI; No chest pain, No edema, No Hx of Intervention, No palpitations, No syncope; vascular heart diseas; No other Genitourinary: no symptoms reported, see HPI Physical Exam Physical Exam Vital Signs Vital Signs - First Documented 12/09/17 12/09/17 09:53 17:58 Temp 98.0 Pulse 92 Resp 12 B/P (MAP) 112/79 (90) Pulse Ox 97 O2 Delivery Room Air Capillary Refill : Less Than 3 Seconds Height, Weight, BMI Height: 5'1.00" Weight: 124lbs. 2.0oz. [id number]; 23.3 BMI Method:Estimated General Appearance: Chronically ill, Mild Distress HEENT: PERRL/EOMI Neck: Full Range of Motion, Normal Inspection, Non Tender, Supple, Carotid Bruit (No bruits appreciated.) Respiratory: Chest Non Tender, Lungs Clear, Normal Breath Sounds, No Accessory Muscle Use, No Respiratory Distress Cardiovascular: No Gallop, No JVD, No Murmur, Irregularly Irregular (Rate mildly tachycardic around 100) Gastrointestinal: Normal Bowel Sounds, No Organomegaly, No Pulsatile Mass, Non Tender, Soft Extremity: Other (Both extremities are warm unable to appreciate pulses. There is trace edema of the right lower extremity with a large dorsal foot ulcer with a somewhat necrotic base the edema is brawny in nature and there is some warmth about the ankle with mild tenderness questionable effusion or some mild pain on range of motion of the ankle. There is some mild restriction in range of motion as well. No calf pain is noted.) Results Results/Procedures Labs Laboratory Tests 12/09/17 10:17 12/10/17 05:49 Patient resulted labs reviewed. Assessment/Plan Admission Diagnosis A/P 1. Urinary tract infection Rocephin has been initiated. 2. Possible inflammatory arthropathy of the right lower extremity. Cellulitis, septic arthritis or osteomyelitis are also in the differential diagnosis . We' ll give 1 dose of Solu-Medrol if there is not significant improvement will need to consider cellulitis etc. and broadening antibiotic coverage with further x- ray evaluation.. Wound care has been consulted. My concerns and the case was discussed with Dr. Vásquez 3. Hallucinations suspect number 1 or 2 the patient is not currently on any medications prescription or [id number] with with any significant likelihood of contributing. 4. Failure to thrive multifactorial consider early dementia will be discussing strong recommendations for shelter placement on discharge for wound care physical and occupational therapy. Admission Status: Inpatient Order (span 2 midnights) Reason for Inpatient Admission: See assessment and plan Clinical Quality Measures DVT/VTE Risk/Contraindication: Risk Factor Score Per Nursin RFS Level Per Nursing on Admit: 3=High KRISH SABA MD Dec 10, 2017 08:45
[2017-12-10] MEDS ORDERED: PANTOPRAZOLE 40 MG (PROTONIX) TAB PO NR (08:53)
[2017-12-10] MEDS ORDERED: methylPREDNISolone 125 MG (Solu-MEDROL) VIAL IVP NR (08:54)
[2017-12-10] MEDS ORDERED: TRAM50TA2 PO (09:58)
[2017-12-10] MEDS ORDERED: TRIA1TAB3 PO (09:58)
[2017-12-10] MEDS ORDERED: PANT40TA3 PO (09:58)
[2017-12-10] MEDS ORDERED: LIDO30JE3 TOP (09:58)
[2017-12-10] MEDS ORDERED: DILT180C54 PO (09:58)
[2017-12-10] MEDS ORDERED: CLOP75TA69 PO (09:58)
[2017-12-10] MEDS ORDERED: ACET-2267 PO (09:59)
[2017-12-10] MEDS: meTOprolol SUCCINATE 100 MG (TOPROL XL) TAB PO SCH (10:16)
[2017-12-10] MEDS: CLOPIDOGREL 75 MG (PLAVIX) TABLET PO SCH (10:19)
--- OUTSIDE RECORDS SUMMARY | 2017-12-10 10:27 | XMS REPORT | Clinical Summary ---
Author Author [facility] Organization [facility] Address Unknown Phone Unavailable Care Team Providers Care Tech Writer Name Role Phone Sheldon Spann MD Unavailable Krish Saba MD PCP Source Comments Some departments are not documenting in the electronic medical record. If you do not see the information that you expected, contact Release of Information in the Health Information Management department at [phone] for further assistance in locating additional records.[facility] Allergies Active Allergy Reactions Severity Noted Date [...] PERTUSSIS VACCINE 1942 TETANUS VACCINE 1948 SHINGLES RECOMBINANT 1981 VACCINE (1 of 2) OSTEOPOROSIS SCREENING 1996 PNEUMONIA (PCV13/PPSV23) 1996 VACCINES (1 of 2 - PCV13) INFLUENZA VACCINE 02/25/2018 Results Not on filefrom Last 3 Months
--- OUTSIDE RECORDS SUMMARY | 2017-12-10 10:27 | XMS REPORT | Continuity of Care Document ---
Author Author [facility] Organization [facility] Address Unknown Phone Unavailable Care Team Providers Care Grain Elevator Man Name Role Phone ROMELIA BALES MD PP Insurance Providers Payer Name Policy Number Subscriber Name Relationship s Medicare [id number] Brenda Cowan 01 Self / Same As Patient Advance Directives Directive Response Recorded Date Advance Directives Y 03/23/13 4:48pm Health Care Power of Mobile Disc Jockey Y daughter ramila naqvi 03/23/13 4:48pm Organ Donor N body being donated to [facility] 03/23/13 4:48pm Problems No Known Problems or Medical conditions. Family History History Response Recorded Date/Time Hx Family Cancer N 03/23/13 8:40am Hx Family Cardiac Disorders N 03/23/13 8: 40am Hx Family Stroke Y MAT GM 03/23/13 8: 40am Social History History Response Recorded Date/Time Alcohol Use Denies Use 03/23/13 4:51pm Recreational Drug Use N 03/23/13 4:51pm Recent Foreign Travel N 03/23/13 4:51pm Recent Infectious Disease Exposure N 4:51pm Hospitalization with Isolation Denies 12:49pm Sexually Transmitted Disease N 03/23/13 4 :51pm HIV/AIDS N 03/23/13 4:51pm Allergies, Adverse Reactions, Alerts Allergen Type Severity Reaction Last Updated Codeine Allergy Mild sore throat 03/23/13 Sulfamethoxazole Adverse Reaction RASH 03/23/13 trimethoprim Adverse Reaction RASH 03/23/13 Medications Medication Dose Units Route Sig Qty Days Estrogens Conjugated (Premarin Vag Cream) 1 Gm VG HS Gabapentin (Neurontin) 600 Mg PO HS Clopidogrel Bisulfate (Plavix 75 Mg) 75 Mg PO DAILY Hydrochlorothiazide (Hctz) 25 Mg PO DAILY Aspirin (Low Dose Aspirin) 81 Mg PO DAILY Acetaminophen/Hydrocodone Bitart (Lorcet 5/325 Mg) 1 Tab PO q 6hr prn for breakt 28 Trimethoprim/Sulfamethoxazole (Bactrim Ds Tablet) 1 Each PO BID Oxycodone/Acetaminophen (Endocet 5-325 Tablet) 1 - 2 Each PO Q4HR PRN Gabapentin (Neurontin) 300 Mg PO TID Oxybutynin Chloride (Ditropan Xl) 5 Mg PO DAILY Propranolol HCl (Inderal) 60 Mg PO DAILY Simvastatin (Zocor) 80 Mg PO HS Labetalol HCl (Trandate) 200 Mg PO BID Calcium Carbonate (Gaviscon) 500 Mg PO NEEDED Immunizations Name Given Type Date of Pneumonia Vaccine 01/27/00 H influenza, split (incl. purified surface antigen) 03/23/13 A influenza, split (incl. purified surface antigen) 03/23/13 A Response Recorded Date/Time Status not known Unknown Results Test Date Result Interp. Ref. Range Absolute Reticulocyte Count August 23, 2010 10:22am 31 10^3/uL N 22-82 Activated Partial Thromboplast Time June 02, 2009 10: 40am 30 SEC N 24-35 Alanine Aminotransferase (ALT/SGPT) March 23, 2013 5:54am 29 U/L L 30-65 Albumin March 23, 2013 5:54am 3.9 G/ DL N 3.4-5.0 Alkaline Phosphatase March 23, 2013 5:54am 111 U/L N 50-136 Amylase Level June 02, 2009 10:40am 35 U/L N 25-115 Aspartate Amino Transf (AST/SGOT) March 23, 2013 5:54am 24 U/L N 15-37 B-Type Natriuretic Peptide June 02, 2009 10:40am 49.5 PG/ML N 5.0-100.0 BUN/Creatinine Ratio March 23, 2013 5:54am 18 - Band Neutrophils May 24, 2010 10:56am 2 % - Basophils # (Auto) March 23, 2013 5:54am 0.1 10^3/uL N 0.0-0.1 Basophils % (Manual) May 24, 2010 10:56am 2 % - Basophils (%) (Auto) March 23, 2013 5:54am 1 % N 0-10 Bleeding Time January 06, 2011 11:35am 3.0 MIN N 2.5-9.5 Blood Urea Nitrogen March 23, 2013 5:54am 11 MG/DL N 7-18 Calcium Level March 23, 2013 5:54am 8.9 MG/DL N 8.5-10.1 Carbon Dioxide Level March 23, 2013 5:54am 28 MMOL/L N 21-32 Chloride Level March 23, 2013 5:54am 103 MMOL/L N 101-110 Creatinine March 23, 2013 5:54am 0.6 MG/DL N 0.6-1.3 D-Dimer June 02, 2009 10:40am 0.58 UG /ML H 0.00-0.49 Eosinophils # (Auto) March 23, 2013 5:54am 0.4 10^3/uL H 0.0-0.3 Eosinophils % (Manual) May 24, 2010 10:56am 3 % - Eosinophils (%) (Auto) March 23, 2013 5:54am 4 % N 0-10 Glucose Level March 23, 2013 5:54am 95 MG/DL N 74-106 Hematocrit March 23, 2013 5:54am 52 % N 35-52 Hemoglobin March 23, 2013 5:54am 18.2 G/DL H 11.5-16.0 Lipase June 02, 2009 10:40am 218 U/L N 114-286 Lymphocytes # (Auto) March 23, 2013 5:54am 2.3 X 10^3 N 1.0-4.0 Lymphocytes % (Manual) May 24, 2010 10:56am 16 % - Lymphocytes (%) (Auto) March 23, 2013 5:54am 24 % N 12-44 Magnesium Level March 20, 2011 4:35pm 1.6 MG/DL L 1.8-2.4 Mean Corpuscular Hemoglobin March 23, 2013 5:54am 33 PG N 25-34 Mean Corpuscular Hemoglobin Concent March 23, 2013 5:54am 35 G/DL N 32-36 Mean Corpuscular Volume March 23, 2013 5:54am 94 FL N 80-99 Mean Platelet Volume March 23, 2013 5:54am 11.8 FL H 7.4-10.4 Monocytes # (Auto) March 23, 2013 5:54am 0.9 X 10^3 N 0.0-1.0 Monocytes % (Manual) May 24, 2010 10:56am 6 % - Monocytes (%) (Auto) March 23, 2013 5:54am 9 % N 0-12 Myoglobin June 02, 2009 10:40am 61 UG /L N 10-92 Neutrophils # (Auto) March 23, 2013 5:54am 6.0 X 10^3 N 1.8-7.8 Neutrophils % (Manual) May 24, 2010 10:56am 66 % - Neutrophils (%) (Auto) March 23, 2013 5:54am 62 % N 42-75 Percent Reticulocyte Count August 23, 2010 10:22am 0.67 % N 0.50-2.40 Platelet Count March 23, 2013 5:54am 181 10^3/uL N 130-400 Potassium Level March 23, 2013 5:54am 3.3 MMOL/L L 3.6-5.0 Prothromb Time International Ratio June 02, 2009 10:40am 0.9 N 0.8-1.4 Prothrombin Time June 02, 2009 10:40am 12.6 SEC N 12.2-14.7 Reactive Lymphocytes May 24, 2010 10:56am 5 % - Red Blood Count March 23, 2013 5:54am 5.51 10^6/uL N 4.35-5.85 Red Cell Distribution Width March 23, 2013 5:54am 13.0 % N 10.0-14.5 Sodium Level March 23, 2013 5:54am 140 MMOL/L N 135-145 TSH [place] Testing June 02, 2009 10:40am 1.43 UIU/ML N 0.34-5.60 Total Bilirubin March 23, 2013 5:54am 0.8 MG/DL N 0.0-1.0 Total Protein March 23, 2013 5:54am 7.6 G/DL N 6.4-8.2 Troponin I March 23, 2013 5:54am < 0.10 NG/ML 0.00-0.10 Urine Bacteria January 11, 2011 6:40am TRACE - Urine Bilirubin January 11, 2011 6:40am NEGATIVE - Urine Casts January 11, 2011 6:40am NONE - Urine Clarity January 11, 2011 6:40am CLEAR - Urine Color January 11, 2011 6:40am YELLOW - Urine Crystals January 11, 2011 6:40am NONE - Urine Culture Indicated January 11, 2011 6:40am YES - Urine Glucose (UA) January 11, 2011 6:40am NEGATIVE - Urine Ketones January 11, 2011 6:40am NEGATIVE - Urine Leukocyte Esterase January 11, 2011 6:40am NEGATIVE - Urine Mucus January 11, 2011 6:40am NEGATIVE - Urine Nitrite January 11, 2011 6:40am NEGATIVE - Urine Protein January 11, 2011 6:40am NEGATIVE - Urine RBC January 11, 2011 6:40am NONE / HPF - Urine Specific [place] January 11, 2011 6:40am 1.015 L - Urine Squamous Epithelial Cells January 11, 2011 6:40am 2-5 - Urine Urobilinogen January 11, 2011 6:40am NORMAL MG/DL - Urine WBC January 11, 2011 6:40am RARE / HPF - Urine pH January 11, 2011 6:40am 5.0 - White Blood Count March 23, 2013 5:54am 9.8 10^3/uL N 4.3-11.0 Lab Scanned Report June 02, 2009 10:37am Referred Lab Report [id number] - Estimat Glomerular Filtration Rate March 23, 2013 5:54am > 60 - Blood Morphology Comment May 24, 2010 10:56am NORMAL - Creatine Kinase June 02, 2009 10:40am 58 mg/dl N 21-140 Cardiac Panel Pathologist Review June 02, 2009 10:40am SEE CARDIAC PATH REV - Urine RBC (Auto) January 11, 2011 6:40am NEGATIVE - Procedures Procedure Code Date UPPER GI ENDOSCOPY BIOPSY 92049 04/12/10 ENDOSCOPIC INJECTION/IMPLANT 79772 URIN INCONTIN REPAIR NEC 59.79 01/11/11 ROCKY SUBQ TISSUE 20 SQ CM/< [id number] EXCIS DEBRIDE OF WOUND, INFECT, OR BURN 86.22 03/28/11 ROCKY MUSC/FASCIA 20 SQ CM/< [id number] EXCIS DEBRIDE OF WOUND, INFECT, OR BURN 86.22 05/30/11 FREE SKIN GRAFT NEC 86.69 05/30/11 MRSA Screen 05/01/11 Urine Culture 01/11/11 Gram Stain 07/18/11 Encounters Encounter Location Date/Time Discharged Inpatient [facility] 7:31am Departed Emergency Room [facility] 01/05 11:04am
--- OUTSIDE RECORDS SUMMARY | 2017-12-10 10:28 | XMS REPORT | Continuity of Care Document ---
Author Author [facility] Organization [facility] Address Unknown Phone Unavailable Allergies Active Description Code Type Severity Reaction Onset Reported/Identified Relationship to Patient Clinical Status Yes codeine [id number] Drug Allergy Mild sore throat 03/23/2013 Yes sulfamethoxazole [id number] Drug Allergy Unknown RASH 11/02/2017 Yes trimethoprim [id number] Drug Allergy Unknown RASH 11/02/2017 Medications There is no data. 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 04/26/1599 KATERIN GARZA MD Ot L97.812 NON-PRS CHRONIC ULCER OT PRT R LOW LEG 04/26/1599 KATERIN GARZA MD Ot T65.222A TOXIC EFFECT OF TOBACCO CIGARETTES, SELF 04/12/2010 Ot 535.40 04/12/2010 Ot 553.3 06/04/2010 Ot 845.00 06/04/2010 Ot 959.7 06/04/2010 Ot E000.8 06/04/2010 Ot E849.0 06/04/2010 Ot E927.8 09/07/2010 Ot 599.82 09/07/2010 Ot 788.30 01/12/2011 Ot 272.4 01/12/2011 Ot 305.1 01/12/2011 Ot 401.9 01/12/2011 Ot 414.01 01/12/2011 Ot 443.9 01/12/2011 Ot 599.82 01/12/2011 Ot 625.6 01/12/2011 Ot 715.90 01/12/2011 Ot V45.82 03/14/2011 Ot 891.1 03/14/2011 Ot E000.8 03/14/2011 Ot E849.0 03/14/2011 Ot E885.9 04/07/2011 Ot 272.0 04/07/2011 Ot 401.9 04/07/2011 Ot 596.51 04/07/2011 Ot 682.6 04/07/2011 Ot 891.1 04/07/2011 Ot E000.8 04/07/2011 Ot E849.0 04/07/2011 Ot E885.9 05/09/2011 Ot 459.81 05/09/2011 Ot 891.0 05/09/2011 Ot E000.8 05/09/2011 Ot E849.0 05/09/2011 Ot E885.9 06/06/2011 Ot 272.0 06/06/2011 Ot 338.29 06/06/2011 Ot 401.9 06/06/2011 Ot 596.51 06/06/2011 Ot 891.1 06/06/2011 Ot E849.0 06/06/2011 Ot E906.0 06/06/2011 Ot V43.64 06/06/2011 Ot V45.81 08/15/2011 Ot 707.19 08/15/2011 Ot 707.24 03/24/2013 ROMELIA BALES MD Ot 272.4 HYPERLIPIDEMIA NEC/NOS 03/24/2013 ROMELIA BALES MD Ot 305.1 TOBACCO USE DISORDER 03/24/2013 ROMELIA BALES MD Ot 401.9 HYPERTENSION NOS 03/24/2013 ROMELIA BALES MD Ot 414.01 CORONARY ATHEROSCLEROSIS OF [place] CORON 03/24/2013 ROMELIA BALES MD Ot 435.9 TRANS CEREB ISCHEMIA NOS 03/24/2013 ROMELIA BALES MD Ot 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 03/24/2013 ROMELIA BALES MD Ot 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 03/24/2013 ROMELIA BALES MD Ot 788.30 UNSPECIFIED URINARY INCONTINENCE 03/24/2013 ROMELIA BALES MD Ot V07.4 HORMONE REPLACEMENT THERAPY (POSTMENOPAU 03/24/2013 ROMELIA BALES MD Ot V45.81 AORTOCORONARY BYPASS 07/23/2015 Ot V76.12 07/23/2015 Ot 272.4 07/23/2015 Ot 282.7 07/23/2015 Ot 305.1 07/23/2015 Ot 414.00 07/23/2015 Ot V45.82 07/23/2015 Ot V58.69 07/23/2015 Ot 282.7 07/23/2015 Ot 272.4 07/23/2015 Ot 282.7 07/23/2015 Ot 305.1 07/23/2015 Ot 401.9 07/23/2015 Ot 414.00 07/23/2015 Ot V45.82 07/23/2015 Ot V58.69 07/23/2015 Ot 518.89 07/23/2015 Ot 599.82 07/23/2015 Ot 788.30 07/23/2015 Ot V72.81 07/23/2015 Ot V74.8 07/23/2015 Ot 496 07/23/2015 Ot 518.89 07/23/2015 Ot 255.8 07/23/2015 Ot 518.89 07/23/2015 Ot 733.90 07/23/2015 Ot 618.01 07/23/2015 Ot 788.30 07/23/2015 Ot V58.66 07/23/2015 Ot V72.63 07/23/2015 Ot 709.8 07/23/2015 Ot V72.63 07/23/2015 Ot 891.1 07/23/2015 Ot E000.8 07/23/2015 Ot E849.0 07/23/2015 Ot E885.9 07/23/2015 Ot 891.1 07/23/2015 Ot E000.8 07/23/2015 Ot E849.0 07/23/2015 Ot E885.9 07/23/2015 Ot 891.0 07/23/2015 Ot E000.8 07/23/2015 Ot E849.0 07/23/2015 Ot E885.9 07/23/2015 Ot V72.84 07/23/2015 Ot V74.8 07/23/2015 Ot 891.1 07/23/2015 Ot E000.8 07/23/2015 Ot E849.0 07/23/2015 Ot E885.9 07/23/2015 Ot 459.81 07/23/2015 Ot 891.0 07/23/2015 Ot E000.8 07/23/2015 Ot E849.0 07/23/2015 Ot E885.9 07/23/2015 Ot 709.8 07/23/2015 Ot 891.0 07/23/2015 Ot E000.8 07/23/2015 Ot E849.0 07/23/2015 Ot E906.0 07/23/2015 Ot V72.84 07/23/2015 Ot 709.8 07/23/2015 Ot 362.31 07/23/2015 Ot 433.30 08/12/2015 AMAIRANI MOORE, ROMELIA Chairez Ot I65.23 09/27/2015 KATERIN GARZA MD Ot 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 09/27/2015 KATERIN GARZA MD Ot L97.812 NON-PRS CHRONIC ULCER OTH PRT R LOW LEG 09/27/2015 KATERIN GARZA MD Ot T65.222A TOXIC EFFECT OF TOBACCO CIGARETTES, SELF 09/29/2015 KATERIN GARZA MD Ot 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 09/29/2015 KATERIN GARZA MD Ot L97.812 NON-PRS CHRONIC ULCER OTH PRT R LOW LEG 09/29/2015 KATERIN GARZA MD Ot T65.222A TOXIC EFFECT OF TOBACCO CIGARETTES, SELF 09/30/2015 KATERIN GARZA MD Ot L97.812 NON-PRS CHRONIC ULCER OTH PRT R LOW LEG 10/04/2015 KATERIN GARZA MD Ot 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 10/04/2015 KATERIN GARZA MD Ot L97.812 NON-PRS CHRONIC ULCER OTH PRT R LOW LEG 10/04/2015 KATERIN GARZA MD Ot T65.222A TOXIC EFFECT OF TOBACCO CIGARETTES, SELF 10/05/2015 KATERIN GARZA MD Ot 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 10/05/2015 KATERIN GARZA MD Ot L97.812 NON-PRS CHRONIC ULCER OTH PRT R LOW LEG 10/05/2015 KATERIN GARZA MD Ot T65.222A TOXIC EFFECT OF TOBACCO CIGARETTES, SELF 10/14/2015 KATERIN GARZA MD Ot 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 10/14/2015 KATERIN GARZA MD Ot L97.812 NON-PRS CHRONIC ULCER OTH PRT R LOW LEG 10/14/2015 KATERIN GARZA MD Ot T65.222A TOXIC EFFECT OF TOBACCO CIGARETTES, SELF 10/21/2015 KATERIN GARZA MD Ot 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 10/21/2015 KATERIN GARZA MD Ot L97.812 NON-PRS CHRONIC ULCER OTH PRT R LOW LEG 10/21/2015 KATERIN GARZA MD Ot T65.222A TOXIC EFFECT OF TOBACCO CIGARETTES, SELF 10/21/2015 KATERIN GARZA MD Ot 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 10/21/2015 KATERIN GARZA MD Ot L97.812 NON-PRS CHRONIC ULCER OTH PRT R LOW LEG 10/21/2015 KATERIN GARZA MD Ot T65.222A TOXIC EFFECT OF TOBACCO CIGARETTES, SELF 12/22/2015 KATERIN GARZA MD Ot 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 12/22/2015 KATERIN GARZA MD Ot L97.812 NON-PRS CHRONIC ULCER OTH PRT R LOW LEG 12/22/2015 KATERIN GARZA MD Ot T65.222A TOXIC EFFECT OF TOBACCO CIGARETTES, SELF 12/27/2015 KATERIN GARZA MD Ot 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 12/27/2015 KATERIN GARZA MD Ot L97.812 NON-PRS CHRONIC ULCER OTH PRT R LOW LEG 12/27/2015 KATERIN GARZA MD Ot T65.222A TOXIC EFFECT OF TOBACCO CIGARETTES, SELF 12/30/2015 KATERIN GARZA MD Ot 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 12/30/2015 KATERIN GARZA MD Ot L97.812 NON-PRS CHRONIC ULCER OTH PRT R LOW LEG 12/30/2015 KATERIN GARZA MD Ot T65.222A TOXIC EFFECT OF TOBACCO CIGARETTES, SELF 12/31/2015 KATERIN GARZA MD Ot 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 12/31/2015 KATERIN GARZA MD Ot L97.812 NON-PRS CHRONIC ULCER OTH PRT R LOW LEG 12/31/2015 KATERIN GARZA MD Ot T65.222A TOXIC EFFECT OF TOBACCO CIGARETTES, SELF 02/02/2016 KATERIN GARZA MD Ot 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 02/02/2016 KATERIN GARZA MD Ot L97.812 NON-PRS CHRONIC ULCER OTH PRT R LOW LEG 02/02/2016 KATERIN GARZA MD Ot T65.222A TOXIC EFFECT OF TOBACCO CIGARETTES, SELF 09/20/2017 Ot 362.31 CENT RETINA ARTERY OCCLU 09/20/2017 Ot 433.30 MULT BILTRAL ARTERY OCCLUSION WO CEREBRA 09/20/2017 AMAIRANI MOORE, ROMELIA Chairez Ot I65.23 OCCLUSION AND STENOSIS OF [place] 09/20/2017 KATERIN GARZA MD Ot 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 09/20/2017 KATERIN GARZA MD Ot L97.812 NON-PRS CHRONIC ULCER OTH PRT R LOW LEG 09/20/2017 KATERIN GARZA MD Ot T65.222A TOXIC EFFECT OF TOBACCO CIGARETTES, SELF 09/20/2017 KATERIN GARZA MD Ot 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 09/20/2017 KATERIN GARZA MD Ot L97.812 NON-PRS CHRONIC ULCER OTH PRT R LOW LEG 09/20/2017 KATERIN GARZA MD Ot T65.222A TOXIC EFFECT OF TOBACCO CIGARETTES, SELF 09/20/2017 Ot 362.31 CENT RETINA ARTERY OCCLU 09/20/2017 Ot 433.30 MULT BILTRAL ARTERY OCCLUSION WO CEREBRA 09/20/2017 ROMELIA BALES MD Ot I65.23 OCCLUSION AND STENOSIS OF [place] 09/20/2017 KATERIN GARZA MD Ot 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 09/20/2017 KATERIN GARZA MD Ot L97.812 NON-PRS CHRONIC ULCER OTH PRT R LOW LEG 09/20/2017 KATERIN GARZA MD Ot T65.222A TOXIC EFFECT OF TOBACCO CIGARETTES, SELF 09/20/2017 KATERIN GARZA MD Ot 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 09/20/2017 KATERIN GARZA MD Ot L97.812 NON-PRS CHRONIC ULCER OTH PRT R LOW LEG 09/20/2017 KATERIN GARZA MD Ot T65.222A TOXIC EFFECT OF TOBACCO CIGARETTES, SELF 09/24/2017 AMAIRANI MOORE, ROMELIA Chairez Ot I48.91 UNSPECIFIED ATRIAL FIBRILLATION 09/27/2017 ROMELIA BALES MD Ot I48.91 UNSPECIFIED ATRIAL FIBRILLATION 10/02/2017 ROMELIA BALES MD Ot I48.91 UNSPECIFIED ATRIAL FIBRILLATION 11/02/2017 PRABHA ROGERS MD Ot E78.00 PURE HYPERCHOLESTEROLEMIA, UNSPECIFIED 11/02/2017 PRABHA ROGERS MD Ot F17.200 NICOTINE DEPENDENCE, UNSPECIFIED, UNCOMP 11/02/2017 PRABHA ROGERS MD Ot 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 11/02/2017 PRABHA ROGERS MD Ot I10 ESSENTIAL (PRIMARY) HYPERTENSION 11/02/2017 PRABHA ROGERS MD Ot I48.91 UNSPECIFIED ATRIAL FIBRILLATION 11/02/2017 PRABHA ROGERS MD Ot I87.8 OTHER SPECIFIED DISORDERS OF VEINS 11/02/2017 PRABHA ROGERS MD Ot M79.671 PAIN IN RIGHT FOOT 11/02/2017 PRABHA ROGERS MD Ot Z79.82 PATIENT SUPPORT SPECIALIST (CURRENT) USE OF ASPIRIN 11/02/2017 PRABHA ROGERS MD Ot Z86.73 PRSNL HX OF TIA (TIA), AND CEREB INFRC W 11/02/2017 PRABHA ROGERS MD Ot Z88.1 ALLERGY STATUS TO OTHER ANTIBIOTIC AGENT 11/02/2017 PRABHA ROGERS MD Ot Z88.2 ALLERGY STATUS TO SULFONAMIDES STATUS 11/02/2017 PRABHA ROGERS MD Ot Z88.5 ALLERGY STATUS TO NARCOTIC AGENT STATUS 11/02/2017 PRABHA ROGERS MD Ot Z95.1 PRESENCE OF AORTOCORONARY BYPASS GRAFT 11/05/2017 PRABHA ROGERS MD Ot E78.00 PURE HYPERCHOLESTEROLEMIA, UNSPECIFIED 11/05/2017 PRABHA ROGERS MD Ot F17.200 NICOTINE DEPENDENCE, UNSPECIFIED, UNCOMP 11/05/2017 PRABHA ROGERS MD Ot 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 11/05/2017 PRABHA ROGERS MD Ot I10 ESSENTIAL (PRIMARY) HYPERTENSION 11/05/2017 PRABHA ROGERS MD Ot I48.91 UNSPECIFIED ATRIAL FIBRILLATION 11/05/2017 PRABHA ROGERS MD Ot I87.8 OTHER SPECIFIED DISORDERS OF VEINS 11/05/2017 PRABHA ROGERS MD Ot M79.671 PAIN IN RIGHT FOOT 11/05/2017 PRABHA ROGERS MD Ot Z79.82 PRISON (CURRENT) USE OF ASPIRIN 11/05/2017 PRABHA ROGERS MD Ot Z86.73 PRSNL HX OF TIA (TIA), AND CEREB INFRC W 11/05/2017 PRABHA ROGERS MD Ot Z88.1 ALLERGY STATUS TO OTHER ANTIBIOTIC AGENT 11/05/2017 PRABHA ROGERS MD, Ot Z88.2 ALLERGY STATUS TO SULFONAMIDES STATUS 11/05/2017 PRABHA ROGERS MD, Ot Z88.5 ALLERGY STATUS TO NARCOTIC AGENT STATUS 11/05/2017 PRABHA ROGERS MD Ot Z95.1 PRESENCE OF AORTOCORONARY BYPASS GRAFT 11/09/2017 JENNA FRASER APRN Ot I87.333 CHRONIC VENOUS HTN W ULCER AND INFLAM OF 11/09/2017 JENNA FRASER TIE TAPE MACHINE OPERATOR Ot L97.212 NON-PRESSURE CHRONIC ULCER OF RIGHT CALF 11/09/2017 JENNA FRASER APRN Ot L97.512 NON-PRS CHRONIC ULCER OTH PRT RIGHT FOOT 11/09/2017 JENNA FRASER TIE TAPE MACHINE OPERATOR Ot L97.522 NON-PRS CHRONIC ULCER OTH PRT LEFT FOOT 11/09/2017 JENNA FRASER APRN Ot I87.333 CHRONIC VENOUS HTN W ULCER AND INFLAM OF 11/09/2017 JENNA FRASER TIE TAPE MACHINE OPERATOR Ot L97.212 NON-PRESSURE CHRONIC ULCER OF RIGHT CALF 11/09/2017 JENNA FRASER TIE TAPE MACHINE OPERATOR Ot L97.512 NON-PRS CHRONIC ULCER OTH PRT RIGHT FOOT 11/09/2017 JENNA FRASER TIE TAPE MACHINE OPERATOR Ot L97.522 NON-PRS CHRONIC ULCER OTH PRT LEFT FOOT 11/19/2017 JENNA FRASER APRN Ot I87.333 CHRONIC VENOUS HTN W ULCER AND INFLAM OF 11/19/2017 JENNA FRASER APRN Ot L97.212 NON-PRESSURE CHRONIC ULCER OF RIGHT CALF 11/19/2017 JENNA FRASER TIE TAPE MACHINE OPERATOR Ot L97.512 NON-PRS CHRONIC ULCER OTH PRT RIGHT FOOT 11/19/2017 JENNA FRASER TIE TAPE MACHINE OPERATOR Ot L97.522 NON-PRS CHRONIC ULCER OTH PRT LEFT FOOT 11/22/2017 AWA MOORE, JUAN JOSE Hirsch Ot E78.5 HYPERLIPIDEMIA, UNSPECIFIED 11/22/2017 JUAN JOSE BILLINGS MD Ot I10 ESSENTIAL (PRIMARY) HYPERTENSION 11/22/2017 JUAN JOSE BILLINGS MD Ot I25.10 ATHSCL HEART DISEASE OF [place] CORONARY 11/22/2017 JUAN JOSE BILLINGS MD Ot I48.1 PERSISTENT ATRIAL FIBRILLATION 11/22/2017 JUAN JOSE BILLINGS MD Ot I70.235 ATHSCL [place] ARTERIES OF RIGHT LEG W UL 11/22/2017 JUAN JOSE BILLINGS MD Ot L97.519 NON-PRS CHRONIC ULCER OTH PRT RIGHT FOOT 11/22/2017 JUAN JOSE BILLINGS MD Ot Z86.73 PRSNL HX OF TIA (TIA), AND CEREB INFRC W 11/22/2017 JUAN JOSE BILLINGS MD Ot Z87.891 PERSONAL HISTORY OF NICOTINE DEPENDENCE 11/22/2017 JUAN JOSE BILLINGS MD Ot E78.5 HYPERLIPIDEMIA, UNSPECIFIED 11/22/2017 JUAN JOSE BILLINGS MD Ot I10 ESSENTIAL (PRIMARY) HYPERTENSION 11/22/2017 JUAN JOSE BILLINGS MD Ot I25.10 ATHSCL HEART DISEASE OF [place] CORONARY 11/22/2017 JUAN JOSE BILLINGS MD Ot I48.1 PERSISTENT ATRIAL FIBRILLATION 11/22/2017 JUAN JOSE BILLINGS MD Ot I70.235 ATHSCL [place] ARTERIES OF RIGHT LEG W UL 11/22/2017 JUAN JOSE BILLINGS MD Ot L97.519 NON-PRS CHRONIC ULCER OTH PRT RIGHT FOOT 11/22/2017 JUAN JOSE BILLINGS MD Ot Z86.73 PRSNL HX OF TIA (TIA), AND CEREB INFRC W 11/22/2017 JUAN JOSE BILLINGS MD Ot Z87.891 PERSONAL HISTORY OF NICOTINE DEPENDENCE 11/27/2017 JUAN JOSE BILLINGS MD Ot E78.5 HYPERLIPIDEMIA, UNSPECIFIED 11/27/2017 JUAN JOSE BILLINGS MD Ot I10 ESSENTIAL (PRIMARY) HYPERTENSION 11/27/2017 JUAN JOSE BILLINGS MD Ot I25.10 ATHSCL HEART DISEASE OF [place] CORONARY 11/27/2017 JUAN JOSE BILLINGS MD Ot I48.1 PERSISTENT ATRIAL FIBRILLATION 11/27/2017 JUAN JOSE BILLINGS MD Ot I70.235 ATHSCL [place] ARTERIES OF RIGHT LEG W UL 11/27/2017 JUAN JOSE BILLINGS MD Ot L97.519 NON-PRS CHRONIC ULCER OTH PRT RIGHT FOOT 11/27/2017 JUAN JOSE BILLINGS MD Ot Z86.73 PRSNL HX OF TIA (TIA), AND CEREB INFRC W 11/27/2017 JUAN JOSE BILLINGS MD Ot Z87.891 PERSONAL HISTORY OF NICOTINE DEPENDENCE 11/27/2017 JUAN JOSE BILLINGS MD Ot E78.5 HYPERLIPIDEMIA, UNSPECIFIED 11/27/2017 JUAN JOSE BILLINGS MD Ot I10 ESSENTIAL (PRIMARY) HYPERTENSION 11/27/2017 JUAN JOSE BILLINGS MD Ot I25.10 ATHSCL HEART DISEASE OF [place] CORONARY 11/27/2017 JUAN JOSE BILLINGS MD Ot I48.1 PERSISTENT ATRIAL FIBRILLATION 11/27/2017 JUAN JOSE BILLINGS MD Ot I70.235 ATHSCL [place] ARTERIES OF RIGHT LEG W UL 11/27/2017 JUAN JOSE BILLINGS MD Ot L97.519 NON-PRS CHRONIC ULCER OTH PRT RIGHT FOOT 11/27/2017 JUAN JOSE BILLINGS MD Ot Z86.73 PRSNL HX OF TIA (TIA), AND CEREB INFRC W 11/27/2017 JUAN JOSE BILLINGS MD Ot Z87.891 PERSONAL HISTORY OF NICOTINE DEPENDENCE 11/30/2017 JENNA FRASER APRN Ot I70.232 ATHSCL [place] ARTERIES OF RIGHT LEG W UL 11/30/2017 JENNA FRASER APRN Ot I70.235 ATHSCL [place] ARTERIES OF RIGHT LEG W UL 11/30/2017 JENNA FRASER APRN Ot I70.245 ATHSCL [place] ARTERIES OF LEFT LEG W ULC 11/30/2017 JENNA FRASER APRN Ot I87.333 CHRONIC VENOUS HTN W ULCER AND INFLAM OF 11/30/2017 JENNA FRASER APRN Ot L97.212 NON-PRESSURE CHRONIC ULCER OF RIGHT CALF 11/30/2017 JENNA FRASER APRN Ot L97.512 NON-PRS CHRONIC ULCER OTH PRT RIGHT FOOT 11/30/2017 JENNA FRASER APRN Ot L97.522 NON-PRS CHRONIC ULCER OTH PRT LEFT FOOT Procedures There is no data. Results Test Result Range Complete blood count (CBC) with automated white blood cell (WBC) differential - 11/02/17 10:50 Blood leukocytes automated count (number/volume) 8.6 10*3/uL 4.3-11.0 Blood erythrocytes automated count (number/volume) 5.27 10*6/uL 4.35-5.85 Venous blood hemoglobin measurement (mass/volume) 17.1 g/dL 11.5-16.0 Blood hematocrit (volume fraction) 50 % 35-52 Automated erythrocyte mean corpuscular volume 95 [foz_us] 80-99 Automated erythrocyte mean corpuscular hemoglobin (mass per erythrocyte) 32 pg 25-34 Automated erythrocyte mean corpuscular hemoglobin concentration measurement ( mass/volume) 34 g/dL 32-36 Automated erythrocyte distribution width ratio 15.2 % 10.0-14.5 Automated blood platelet count (count/volume) 215 10*3/uL 130-400 Automated blood platelet mean volume measurement 11.7 [foz_us] 7.4-10.4 Automated blood neutrophils/100 leukocytes 67 % 42-75 Automated blood lymphocytes/100 leukocytes 22 % 12-44 Blood monocytes/100 leukocytes 9 % 0-12 Automated blood eosinophils/100 leukocytes 1 % 0-10 Automated blood basophils/100 leukocytes 1 % 0-10 Blood neutrophils automated count (number/volume) 5.8 10*3 1.8-7.8 Blood lymphocytes automated count (number/volume) 1.9 10*3 1.0-4.0 Blood monocytes automated count (number/volume) 0.7 10*3 0.0-1.0 Automated eosinophil count 0.1 10*3/uL 0.0-0.3 Automated blood basophil count (count/volume) 0.1 10*3/uL 0.0-0.1 Blood lactic acid measurement (moles/volume) - 11/02/17 10:50 Blood lactic acid measurement (moles/volume) 1.66 mmol/L 0.50-2.00 Comprehensive metabolic panel - 11/02/17 10:50 Serum or plasma sodium measurement (moles/volume) 143 mmol/L 135-145 Serum or plasma potassium measurement (moles/volume) 4.3 mmol/L 3.6-5.0 Serum or plasma chloride measurement (moles/volume) 107 mmol/L 98-107 Carbon dioxide 25 mmol/L 21-32 Serum or plasma anion gap determination (moles/volume) 11 mmol/L 5-14 Serum or plasma urea nitrogen measurement (mass/volume) 19 mg/dL 7-18 Serum or plasma creatinine measurement (mass/volume) 0.82 mg/dL 0.60-1.30 Serum or plasma urea nitrogen/creatinine mass ratio 23 NRG Serum or plasma creatinine measurement with calculation of estimated glomerular filtration rate > NRG Serum or plasma glucose measurement (mass/volume) 102 mg/dL 70-105 Serum or plasma calcium measurement (mass/volume) 9.0 mg/dL 8.5-10.1 Serum or plasma total bilirubin measurement (mass/volume) 0.9 mg/dL 0.1-1.0 Serum or plasma alkaline phosphatase measurement (enzymatic activity/volume) 180 U/L 40-136 Serum or plasma aspartate aminotransferase measurement (enzymatic activity/ volume) 19 U/L 5-34 Serum or plasma alanine aminotransferase measurement (enzymatic activity/volume ) 13 U/L 0-55 Serum or plasma protein measurement (mass/volume) 6.6 g/dL 6.4-8.2 Serum or plasma albumin measurement (mass/volume) 3.6 g/dL 3.2-4.5 Serum or plasma C reactive protein measurement (mass/volume) - 11/02/17 10:50 Serum or plasma C reactive protein measurement (mass/volume) 0.27 mg /dL 0.00-0.50 Gram stain microscopy - 11/02/17 10:50 GRAM STAIN RESULT MODERATE # GRAM POSITIVE COCCI [facility] Bacteria identification in wound by culture - 11/02/17 10:50 Bacteria identification in wound by culture [id number] [facility] FREE TEXT EXTERNAL PLEASE NOTIFY MICRO AT EXT 141 IF A NRG QUANTITY OF GROWTH Moderate Growth NR FREE TEXT ENTRY 2 SENSITIVITY IS REQUESTED ON THIS NR FREE TEXT ENTRY 3 ISOLATE OF COAG NEGATIVE STAPH [facility] Bacterial blood culture - 11/02/17 10:50 Bacterial blood culture NG [facility] Bacterial susceptibility panel - 11/02/17 10:50 Gentamicin susceptibility test by minimum inhibitory concentration < = NRG Trimethoprim/sulfamethoxazole susceptibility test by minimum inhibitoryconcentration S NRG Ampicillin susceptibility test by minimum inhibitory concentration R NRG Tobramycin susceptibility test by minimum inhibitory concentration < = NRG Cefazolin susceptibility test by minimum inhibitory concentration R NRG Ceftriaxone susceptibility test by minimum inhibitory concentration <= NRG Ampicillin/sulbactam susceptibility test by minimum inhibitory concentration I NRG Piperacillin/tazobactam susceptibility test by minimum inhibitory concentration < NRG Ciprofloxacin susceptibility test by minimum inhibitory concentration <= NRG Meropenem susceptibility test by minimum inhibitory concentration < = NRG Aztreonam susceptibility test by minimum inhibitory concentration < = NRG Bacterial susceptibility panel - 11/02/17 10:50 Gentamicin susceptibility test by minimum inhibitory concentration < = NRG Trimethoprim/sulfamethoxazole susceptibility test by minimum inhibitoryconcentration S NRG Tobramycin susceptibility test by minimum inhibitory concentration < = NRG Cefazolin susceptibility test by minimum inhibitory concentration > = NRG Piperacillin/tazobactam susceptibility test by minimum inhibitory concentration S NRG Ciprofloxacin susceptibility test by minimum inhibitory concentration <= NRG Meropenem susceptibility test by minimum inhibitory concentration < = NRG Aztreonam susceptibility test by minimum inhibitory concentration < = NRG Cefepime susceptibility test by minimum inhibitory concentration <= NRG Bacterial susceptibility panel - 11/02/17 10:50 Gentamicin susceptibility test by minimum inhibitory concentration S NRG Erythromycin susceptibility test by minimum inhibitory concentration 4 NRG Vancomycin susceptibility test by minimum inhibitory concentration 1 NRG Ampicillin susceptibility test by minimum inhibitory concentration < = NRG Linezolid susceptibility test by minimum inhibitory concentration 2 NRG Bacterial blood culture - 11/02/17 11:10 Bacterial blood culture NG NRG Automated blood complete blood count (hemogram) panel - 11/21/17 09:30 Blood leukocytes automated count (number/volume) 7.0 10*3/uL 4.3-11.0 Blood erythrocytes automated count (number/volume) 5.01 10*6/uL 4.35-5.85 Venous blood hemoglobin measurement (mass/volume) 15.6 g/dL 11.5-16.0 Blood hematocrit (volume fraction) 47 % 35-52 Automated erythrocyte mean corpuscular volume 93 [foz_us] 80-99 Automated erythrocyte mean corpuscular hemoglobin (mass per erythrocyte) 31 pg 25-34 Automated erythrocyte mean corpuscular hemoglobin concentration measurement ( mass/volume) 34 g/dL 32-36 Automated erythrocyte distribution width ratio 15.7 % 10.0-14.5 Automated blood platelet count (count/volume) 190 10*3/uL 130-400 Automated blood platelet mean volume measurement 11.5 [foz_us] 7.4-10.4 Comprehensive metabolic panel - 11/21/17 09:30 Serum or plasma sodium measurement (moles/volume) 142 mmol/L 135-145 Serum or plasma potassium measurement (moles/volume) 3.9 mmol/L 3.6-5.0 Serum or plasma chloride measurement (moles/volume) 111 mmol/L 98-107 Carbon dioxide 21 mmol/L 21-32 Serum or plasma anion gap determination (moles/volume) 10 mmol/L 5-14 Serum or plasma urea nitrogen measurement (mass/volume) 14 mg/dL 7-18 Serum or plasma creatinine measurement (mass/volume) 0.67 mg/dL 0.60-1.30 Serum or plasma urea nitrogen/creatinine mass ratio 21 NRG Serum or plasma creatinine measurement with calculation of estimated glomerular filtration rate > NRG Serum or plasma glucose measurement (mass/volume) 86 mg/dL 70-105 Serum or plasma calcium measurement (mass/volume) 8.6 mg/dL 8.5-10.1 Serum or plasma total bilirubin measurement (mass/volume) 0.7 mg/dL 0.1-1.0 Serum or plasma alkaline phosphatase measurement (enzymatic activity/volume) 102 U/L 40-136 Serum or plasma aspartate aminotransferase measurement (enzymatic activity/ volume) 19 U/L 5-34 Serum or plasma alanine aminotransferase measurement (enzymatic activity/volume ) 11 U/L 0-55 Serum or plasma protein measurement (mass/volume) 6.2 g/dL 6.4-8.2 Serum or plasma albumin measurement (mass/volume) 3.6 g/dL 3.2-4.5 Lipid 1996 panel - 11/21/17 09:30 Serum or plasma triglyceride measurement (mass/volume) 90 mg/dL <150 Serum or plasma cholesterol measurement (mass/volume) 149 mg/dL < 200 Serum or plasma cholesterol in HDL measurement (mass/volume) 50 mg/ dL 40-60 Cholesterol in LDL [mass/volume] in serum or plasma by direct assay 83 mg/dL 1-129 Serum or plasma cholesterol in VLDL measurement (mass/volume) 18 mg/ dL 5-40 PT panel in platelet poor plasma by coagulation assay - 11/21/17 09:30 Prothrombin time (PT) in platelet poor plasma by coagulation assay 13.4 s 12.2-14.7 INR in platelet poor plasma or blood by coagulation assay 1.0 0.8-1.4 Activated partial thromboplastin time (aPTT) in platelet poor plasma bycoagulation assay - 11/21/17 09:30 Activated partial thromboplastin time (aPTT) in platelet poor plasma bycoagulation assay 30 s 24-35 Methicillin resistant Staphylococcus aureus (MRSA) screening culture - 09:30 Methicillin resistant Staphylococcus aureus (MRSA) screening culture NEG NRG Activated partial thromboplastin time (aPTT) in platelet poor plasma bycoagulation assay - 11/21/17 19:20 Activated partial thromboplastin time (aPTT) in platelet poor plasma bycoagulation assay > s 24-35 Activated partial thromboplastin time (aPTT) in platelet poor plasma bycoagulation assay - 11/21/17 22:05 Activated partial thromboplastin time (aPTT) in platelet poor plasma bycoagulation assay 60 s 24-35 Automated blood complete blood count (hemogram) panel - 11/22/17 03:25 Blood leukocytes automated count (number/volume) 8.5 10*3/uL 4.3-11.0 Blood erythrocytes automated count (number/volume) 4.75 10*6/uL 4.35-5.85 Venous blood hemoglobin measurement (mass/volume) 15.2 g/dL 11.5-16.0 Blood hematocrit (volume fraction) 45 % 35-52 Automated erythrocyte mean corpuscular volume 95 [foz_us] 80-99 Automated erythrocyte mean corpuscular hemoglobin (mass per erythrocyte) 32 pg 25-34 Automated erythrocyte mean corpuscular hemoglobin concentration measurement ( mass/volume) 34 g/dL 32-36 Automated erythrocyte distribution width ratio 15.6 % 10.0-14.5 Automated blood platelet count (count/volume) 142 10*3/uL 130-400 Automated blood platelet mean volume measurement 11.3 [foz_us] 7.4-10.4 Whole blood basic metabolic panel - 11/22/17 03:25 Serum or plasma sodium measurement (moles/volume) 143 mmol/L 135-145 Serum or plasma potassium measurement (moles/volume) 4.1 mmol/L 3.6-5.0 Serum or plasma chloride measurement (moles/volume) 111 mmol/L 98-107 Carbon dioxide 19 mmol/L 21-32 Serum or plasma anion gap determination (moles/volume) 13 mmol/L 5-14 Serum or plasma urea nitrogen measurement (mass/volume) 11 mg/dL 7-18 Serum or plasma creatinine measurement (mass/volume) 0.63 mg/dL 0.60-1.30 Serum or plasma urea nitrogen/creatinine mass ratio 17 NRG Serum or plasma creatinine measurement with calculation of estimated glomerular filtration rate > NRG Serum or plasma glucose measurement (mass/volume) 77 mg/dL 70-105 Serum or plasma calcium measurement (mass/volume) 8.4 mg/dL 8.5-10.1 Complete blood count (CBC) with automated white blood cell (WBC) differential - 12/09/17 10:17 Blood leukocytes automated count (number/volume) 12.8 10*3/uL 4.3-11.0 Blood erythrocytes automated count (number/volume) 4.77 10*6/uL 4.35-5.85 Venous blood hemoglobin measurement (mass/volume) 15.1 g/dL 11.5-16.0 Blood hematocrit (volume fraction) 45 % 35-52 Automated erythrocyte mean corpuscular volume 95 [foz_us] 80-99 Automated erythrocyte mean corpuscular hemoglobin (mass per erythrocyte) 32 pg 25-34 Automated erythrocyte mean corpuscular hemoglobin concentration measurement ( mass/volume) 33 g/dL 32-36 Automated erythrocyte distribution width ratio 16.8 % 10.0-14.5 Automated blood platelet count (count/volume) 353 10*3/uL 130-400 Automated blood platelet mean volume measurement 11.1 [foz_us] 7.4-10.4 Automated blood neutrophils/100 leukocytes 81 % 42-75 Automated blood lymphocytes/100 leukocytes 10 % 12-44 Blood monocytes/100 leukocytes 9 % 0-12 Automated blood eosinophils/100 leukocytes 0 % 0-10 Automated blood basophils/100 leukocytes 0 % 0-10 Blood neutrophils automated count (number/volume) 10.3 10*3 1.8-7.8 Blood lymphocytes automated count (number/volume) 1.3 10*3 1.0-4.0 Blood monocytes automated count (number/volume) 1.1 10*3 0.0-1.0 Automated eosinophil count 0.1 10*3/uL 0.0-0.3 Automated blood basophil count (count/volume) 0.1 10*3/uL 0.0-0.1 Comprehensive metabolic panel - 12/09/17 10:17 Serum or plasma sodium measurement (moles/volume) 140 mmol/L 135-145 Serum or plasma potassium measurement (moles/volume) 4.7 mmol/L 3.6-5.0 Serum or plasma chloride measurement (moles/volume) 104 mmol/L 98-107 Carbon dioxide 21 mmol/L 21-32 Serum or plasma anion gap determination (moles/volume) 15 mmol/L 5-14 Serum or plasma urea nitrogen measurement (mass/volume) 33 mg/dL 7-18 Serum or plasma creatinine measurement (mass/volume) 1.59 mg/dL 0.60-1.30 Serum or plasma urea nitrogen/creatinine mass ratio 21 NRG Serum or plasma creatinine measurement with calculation of estimated glomerular filtration rate 31 NRG Serum or plasma glucose measurement (mass/volume) 83 mg/dL 70-105 Serum or plasma calcium measurement (mass/volume) 9.6 mg/dL 8.5-10.1 Serum or plasma total bilirubin measurement (mass/volume) 1.1 mg/dL 0.1-1.0 Serum or plasma alkaline phosphatase measurement (enzymatic activity/volume) 104 U/L 40-136 Serum or plasma aspartate aminotransferase measurement (enzymatic activity/ volume) 27 U/L 5-34 Serum or plasma alanine aminotransferase measurement (enzymatic activity/volume ) 15 U/L 0-55 Serum or plasma protein measurement (mass/volume) 6.8 g/dL 6.4-8.2 Serum or plasma albumin measurement (mass/volume) 3.9 g/dL 3.2-4.5 Serum or plasma lithium measurement (moles/volume) - 12/09/17 10:17 BNP level 704.1 pg/mL <100.0 Complete urinalysis with reflex to culture - 12/09/17 14:09 Urine color determination [place] NRG Urine clarity determination SLIGHTLY CLOUDY NRG Urine pH measurement by test strip 5 5-9 Specific gravity of urine by test strip 1.025 1.016- 1.022 Urine protein assay by test strip, semi-quantitative 2+ NEGATIVE Urine glucose detection by automated test strip NEGATIVE NEGATIVE Erythrocytes detection in urine sediment by light microscopy 1+ NEGATIVE Urine ketones detection by automated test strip 1+ NEGATIVE Urine nitrite detection by test strip NEGATIVE NEGATIVE Urine total bilirubin detection by test strip 2+ NEGATIVE Urine urobilinogen measurement by automated test strip (mass/volume) 1 mg/dL NORMAL Urine leukocyte esterase detection by dipstick 3+ NEGATIVE Automated urine sediment erythrocyte count by microscopy (number/high power field) NONE NRG Automated urine sediment leukocyte count by microscopy (number/high power field ) [HPF] NRG Bacteria detection in urine sediment by light microscopy MODERATE NRG Squamous epithelial cells detection in urine sediment by light microscopy 10-25 NRG Crystals detection in urine sediment by light microscopy NONE NRG Casts detection in urine sediment by light microscopy PRESENT NRG Mucus detection in urine sediment by light microscopy NEGATIVE NRG Complete urinalysis with reflex to culture YES NRG Granular casts detection in urine sediment by light microscopy 10- 25 NRG Complete blood count (CBC) with automated white blood cell (WBC) differential - 12/10/17 05:49 Blood leukocytes automated count (number/volume) 13.7 10*3/uL 4.3-11.0 Blood erythrocytes automated count (number/volume) 4.77 10*6/uL 4.35-5.85 Venous blood hemoglobin measurement (mass/volume) 15.3 g/dL 11.5-16.0 Blood hematocrit (volume fraction) 45 % 35-52 Automated erythrocyte mean corpuscular volume 94 [foz_us] 80-99 Automated erythrocyte mean corpuscular hemoglobin (mass per erythrocyte) 32 pg 25-34 Automated erythrocyte mean corpuscular hemoglobin concentration measurement ( mass/volume) 34 g/dL 32-36 Automated erythrocyte distribution width ratio 16.7 % 10.0-14.5 Automated blood platelet count (count/volume) 268 10*3/uL 130-400 Automated blood platelet mean volume measurement 11.0 [foz_us] 7.4-10.4 Automated blood neutrophils/100 leukocytes 78 % 42-75 Automated blood lymphocytes/100 leukocytes 11 % 12-44 Blood monocytes/100 leukocytes 9 % 0-12 Automated blood eosinophils/100 leukocytes 1 % 0-10 Automated blood basophils/100 leukocytes 0 % 0-10 Blood neutrophils automated count (number/volume) 10.7 10*3 1.8-7.8 Blood lymphocytes automated count (number/volume) 1.5 10*3 1.0-4.0 Blood monocytes automated count (number/volume) 1.3 10*3 0.0-1.0 Automated eosinophil count 0.1 10*3/uL 0.0-0.3 Automated blood basophil count (count/volume) 0.1 10*3/uL 0.0-0.1 Comprehensive metabolic panel - 12/10/17 05:49 Serum or plasma sodium measurement (moles/volume) 141 mmol/L 135-145 Serum or plasma potassium measurement (moles/volume) 3.8 mmol/L 3.6-5.0 Serum or plasma chloride measurement (moles/volume) 104 mmol/L 98-107 Carbon dioxide 22 mmol/L 21-32 Serum or plasma anion gap determination (moles/volume) 15 mmol/L 5-14 Serum or plasma urea nitrogen measurement (mass/volume) 34 mg/dL 7-18 Serum or plasma creatinine measurement (mass/volume) 1.24 mg/dL 0.60-1.30 Serum or plasma urea nitrogen/creatinine mass ratio 27 NRG Serum or plasma creatinine measurement with calculation of estimated glomerular filtration rate 41 NRG Serum or plasma glucose measurement (mass/volume) 79 mg/dL 70-105 Serum or plasma calcium measurement (mass/volume) 9.1 mg/dL 8.5-10.1 Serum or plasma total bilirubin measurement (mass/volume) 0.9 mg/dL 0.1-1.0 Serum or plasma alkaline phosphatase measurement (enzymatic activity/volume) 97 U/L 40-136 Serum or plasma aspartate aminotransferase measurement (enzymatic activity/ volume) 31 U/L 5-34 Serum or plasma alanine aminotransferase measurement (enzymatic activity/volume ) 15 U/L 0-55 Serum or plasma protein measurement (mass/volume) 6.2 g/dL 6.4-8.2 Serum or plasma albumin measurement (mass/volume) 3.4 g/dL 3.2-4.5 Encounters ACCT No. Visit Date/Time Discharge Status Pt. Type Provider Facility Loc./Unit Complaint [id number] 12/06/2017 09:17:00 12/06/2017 23:59:59 CLS Outpatient ALIDA HEADLEY MD [facility] WOUND[facility] [id number] 11/29/2017 09:20:00 11/29/2017 23:59:59 CLS Outpatient JENNA FRASER APRN [facility] [id number] 11/21/2017 08:44:00 11/22/2017 12:25:00 DIS Outpatient JUAN JOSE BILLINGS MD [facility] CATH ABN EKG,PAD,A FIB,HTN [id number] 11/08/2017 09:49:00 11/08/2017 23:59:59 CLS Outpatient JENNA FRASER APRN [facility] WOUND[facility] [id number] 11/02/2017 10:21:00 11/02/2017 13:24:00 DIS Emergency PRABHA ROGERS MD [facility] ER RT FOOT PAIN [id number] 09/21/2017 10:25:00 09/21/2017 23:59:59 CLS Outpatient ROMELIA BALES MD [facility] CARD NEW ONSET AFIB [id number] 12/30/2015 08:09:00 02/02/2016 16:00:00 DIS Outpatient KATERIN GARZA MD [facility] W[facility] [id number] 12/09/2015 08:07:00 12/22/2015 00:01:00 DIS Outpatient KATERIN GARZA MD [facility] [id number] 09/30/2015 11:20:00 09/30/2015 23:59:59 CLS Outpatient KATERIN GARZA MD [facility] RAD CHRONIC ULCER RT LOWER EXR RT LEG [id number] 09/24/2015 08:47:00 09/24/2015 23:59:59 CLS Outpatient KATERIN GARZA MD [facility] LAB CHRONIC ULCER RT LOWER EXR RT LEG [id number] 07/23/2015 10:40:00 07/23/2015 23:59:59 CLS Outpatient ROMELIA BALES MD [facility] RAD LEFT CHOLESTEROL EMBOLI TO RETINAL ARTERY [id number] 03/23/2013 07:31:00 03/24/2013 12:00:00 DIS Inpatient ROMELIA BALES MD [facility] 4TH TIA [id number] 12/09/2017 10:28:00 Document Registration [id number] 07/23/2015 10:40:00 Document Registration [id number] 07/23/2015 10:39:00 Document Registration [id number] 05/07/2012 11:27:00 Document Registration [id number] 07/26/2011 08:10:00 Document Registration [id number] 06/20/2011 12:30:00 Document Registration [id number] 05/30/2011 05:36:00 Document Registration [id number] 05/26/2011 10:50:00 Document Registration [id number] 05/15/2011 16:57:00 Document Registration [id number] 05/10/2011 00:00:00 Document Registration [id number] 05/02/2011 05:37:00 Document Registration [id number] 05/01/2011 11:01:00 Document Registration [id number] 04/17/2011 14:00:00 Document Registration [id number] 04/14/2011 16:20:00 Document Registration [id number] 03/20/2011 15:40:00 Document Registration [id number] 03/14/2011 05:38:00 Document Registration [id number] 03/09/2011 13:34:00 Document Registration [id number] 03/09/2011 08:00:00 Document Registration [id number] 01/11/2011 05:45:00 Document Registration [id number] 01/06/2011 10:24:00 Document Registration [id number] 12/15/2010 09:44:00 Document Registration [id number] 09/13/2010 09:15:00 Document Registration [id number] 09/07/2010 05:48:00 Document Registration [id number] 09/06/2010 06:44:00 Document Registration [id number] 09/02/2010 08:47:00 Document Registration [id number] 08/23/2010 10:13:00 Document Registration [id number] 07/05/2010 13:59:00 Document Registration [id number] 06/04/2010 11:04:00 Document Registration [id number] 05/24/2010 10:02:00 Document Registration [id number] 04/12/2010 07:11:00 Document Registration [id number] 03/14/2010 09:24:00 Document Registration
--- OUTSIDE RECORDS SUMMARY | 2017-12-10 12:32 | XMS REPORT | Clinical Summary ---
Author Author [facility] Organization [facility] Address Unknown Phone Unavailable Care Team Providers Care Sewer Pipe Layer Helper Name Role Phone Sheldon Spann MD Unavailable Krish Saba MD PCP Source Comments Some departments are not documenting in the electronic medical record. If you do not see the information that you expected, contact Release of Information in the Health Information Management department at [phone] for further assistance in locating additional records.[facility] Allergies Active Allergy Reactions Severity Noted [...]
--- OUTSIDE RECORDS SUMMARY | 2017-12-10 12:34 | XMS REPORT | Continuity of Care Document ---
Author Author [facility] Organization [facility] Address Unknown Phone Unavailable Allergies Active Description Code Type Severity Reaction Onset Reported/Identified Relationship to Patient Clinical Status Yes codeine [id number] Drug Allergy Mild sore throat 03/23/2013 Yes sulfamethoxazole [id number] Drug Allergy Unknown RASH 11/02/2017 Yes trimethoprim [id number] Drug Allergy Unknown RASH 11/02/2017 Medications There [...] BALES MD Ot 414.01 CORONARY ATHEROSCLEROSIS OF [place] CORON 03/24/2013 ROMELIA BALES MD Ot 435.9 [...] FOOT 11/02/2017 PRABHA ROGERS MD Ot 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 11/02/2017 PRABHA ROGERS [...] PRESENCE OF AORTOCORONARY BYPASS GRAFT 11/05/2017 PRABHA ROEGRS MD Ot E78.00 PURE HYPERCHOLESTEROLEMIA, UNSPECIFIED 11/05/2017 [...] FOOT 11/05/2017 PRABHA ROGERS MD Ot Z79.82 SENIOR LIVING (CURRENT) USE OF ASPIRIN 11/05/2017 PRABHA ROGERS [...] ULCER AND INFLAM OF 11/09/2017 JENNA FRASER PLASTERING SUPERVISOR Ot L97.212 NON-PRESSURE CHRONIC ULCER OF RIGHT CALF 11/09/2017 JENNA FRASER APRN Ot L97.512 NON-PRS CHRONIC ULCER OTH PRT RIGHT FOOT 11/09/2017 JENNA FRASER PLASTERING SUPERVISOR Ot L97.522 NON-PRS CHRONIC ULCER OTH PRT LEFT FOOT 11/09/2017 JENNA FRASER APRN Ot I87.333 CHRONIC VENOUS HTN W ULCER AND INFLAM OF 11/09/2017 JENNA FRASER PLASTERING SUPERVISOR Ot L97.212 NON-PRESSURE CHRONIC ULCER OF RIGHT CALF 11/09/2017 JENNA FRASER PLASTERING SUPERVISOR Ot L97.512 NON-PRS CHRONIC ULCER OTH PRT RIGHT FOOT 11/09/2017 JENNA FRASER PLASTERING SUPERVISOR Ot L97.522 NON-PRS CHRONIC ULCER OTH PRT LEFT FOOT 11/19/2017 JENNA FRASER APRN Ot I87.333 CHRONIC VENOUS HTN W ULCER AND INFLAM OF 11/19/2017 JENNA FRASER APRN Ot L97.212 NON-PRESSURE CHRONIC ULCER OF RIGHT CALF 11/19/2017 JENNA FRASER PLASTERING SUPERVISOR Ot L97.512 NON-PRS CHRONIC ULCER OTH PRT RIGHT FOOT 11/19/2017 JENNA FRASER PLASTERING SUPERVISOR Ot L97.522 NON-PRS CHRONIC ULCER OTH PRT LEFT FOOT 11/22/2017 AWA MOORE, JUAN JOSE Hirsch Ot E78.5 HYPERLIPIDEMIA, UNSPECIFIED 11/22/2017 JUAN JOSE BILLINGS MD Ot I10 ESSENTIAL (PRIMARY) HYPERTENSION 11/22/2017 JUAN JOSE BILLINGS MD Ot I25.10 ATHSCL HEART DISEASE OF [place] CORONARY 11/22/2017 JUAN JOSE BILLINGS MD Ot I48.1 PERSISTENT ATRIAL FIBRILLATION 11/22/2017 JUAN JOSE BILLINGS MD Ot I70.235 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 11/22/2017 [...] MD Ot I25.10 ATHSCL HEART DISEASE OF [place] CORONARY 11/22/2017 JUAN JOSE BILLINGS MD Ot I48.1 PERSISTENT ATRIAL FIBRILLATION 11/22/2017 JUAN JOSE BILLINGS MD Ot I70.235 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 11/22/2017 [...] MD Ot I25.10 ATHSCL HEART DISEASE OF [place] CORONARY 11/27/2017 JUAN JOSE BILLINGS MD Ot I48.1 PERSISTENT ATRIAL FIBRILLATION 11/27/2017 JUAN JOSE BILLINGS MD Ot I70.235 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 11/27/2017 [...] MD Ot I25.10 ATHSCL HEART DISEASE OF [place] CORONARY 11/27/2017 JUAN JOSE BILLINGS MD Ot I48.1 PERSISTENT ATRIAL FIBRILLATION 11/27/2017 JUAN JOSE BILLINGS MD Ot I70.235 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 11/27/2017 JUAN JOSE BILLINGS MD Ot L97.519 NON-PRS CHRONIC ULCER OTH PRT RIGHT FOOT 11/27/2017 JUAN JOSE BILLINGS MD Ot Z86.73 PRSNL HX OF TIA (TIA), AND CEREB INFRC W 11/27/2017 JUAN JOSE BILLINGS MD Ot Z87.891 PERSONAL HISTORY OF NICOTINE DEPENDENCE 11/30/2017 JENNA FRASER APRN Ot I70.232 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 11/30/2017 JENNA FRASER APRN Ot I70.235 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 11/30/2017 JENNA FRASER APRN Ot I70.245 ATHSCL [place] ARTERIES OF LEFT LEG W ULC 11/30/2017 [...] STAIN RESULT MODERATE # GRAM POSITIVE COCCI [facility] Bacteria identification in wound by culture - 11/02/17 10:50 Bacteria identification in wound by culture [id number] [facility] FREE TEXT EXTERNAL PLEASE NOTIFY MICRO AT EXT 141 IF A NRG QUANTITY OF GROWTH Moderate Growth NR FREE TEXT ENTRY 2 SENSITIVITY IS REQUESTED ON THIS NR FREE TEXT ENTRY 3 ISOLATE OF COAG NEGATIVE STAPH [facility] Bacterial blood culture - 11/02/17 10:50 Bacterial blood culture NG [facility] Bacterial susceptibility panel - 11/02/17 10:50 Gentamicin [...] Status Pt. Type Provider Facility Loc./Unit Complaint [id number] 12/06/2017 09:17:00 12/06/2017 23:59:59 CLS Outpatient ALIDA HEADLEY MD [facility] W[facility] [id number] 11/29/2017 09:20:00 11/29/2017 23:59:59 CLS Outpatient JENNA FRASER APRN [facility] W[facility] [id number] 11/21/2017 08:44:00 11/22/2017 12:25:00 DIS Outpatient JUAN JOSE BILLINGS MD [facility] CATH ABN EKG,PAD,A FIB,HTN [id number] 11/08/2017 09:49:00 11/08/2017 23:59:59 CLS Outpatient JENNA FRASER APRN [facility] WOUNDCARE [id number] 11/02/2017 10:21:00 11/02/2017 13:24:00 DIS Emergency PRABHA ROGERS MD [facility] ER RT FOOT PAIN [id number] 09/21/2017 10:25:00 09/21/2017 23:59:59 CLS Outpatient ROMELIA BALES MD [facility] CARD NEW ONSET AFIB [id number] 12/30/2015 08:09:00 02/02/2016 16:00:00 DIS Outpatient KATERIN GARZA MD [facility] WOUNDC[facility] [id number] 12/09/2015 08:07:00 12/22/2015 00:01:00 DIS Outpatient KATEIRN GARZA MD [facility] [id number] 09/30/2015 11:20:00 09/30/2015 23:59:59 CLS Outpatient KATERIN GARZA MD [facility] RAD CHRONIC ULCER RT LOWER EXR RT LEG [id number] 09/24/2015 08:47:00 09/24/2015 23:59:59 CLS Outpatient KATERIN GARZA MD [facility] LAB CHRONIC ULCER RT LOWER EXR RT LEG [id number] 07/23/2015 10:40:00 07/23/2015 23:59:59 CLS Outpatient ROMELIA BALES MD [facility] RAD LEFT CHOLESTEROL EMBOLI TO RETINAL ARTERY [id number] 03/23/2013 07:31:00 03/24/2013 12:00:00 DIS Inpatient ROMELIA BALES MD [facility] 4TH TIA [id number] 12/09/2017 10:28:00 Document Registration [id number] 07/23/2015 10:40:00 Document Registration [id number] 07/23/2015 10:39:00 Document Registration [id number] 05/07/2012 11:27:00 Document Registration [id number] 07/26/2011 08:10:00 Document Registration [id number] 06/20/2011 12:30:00 Document Registration [id number] 05/30/2011 05:36:00 Document Registration [id number] 05/26/2011 10:50:00 Document Registration [id number] 05/15/2011 16:57:00 Document Registration [id number] 05/10/2011 00:00:00 Document Registration [id number] 05/02/2011 05:37:00 Document Registration [id number] 05/01/2011 11:01:00 Document Registration [id number] 04/17/2011 14:00:00 Document Registration [id number] 04/14/2011 16:20:00 Document Registration [id number] 03/20/2011 15:40:00 Document Registration [id number] 03/14/2011 05:38:00 Document Registration [id number] 03/09/2011 13:34:00 Document Registration [id number] 03/09/2011 08:00:00 Document Registration [id number] 01/11/2011 05:45:00 Document Registration [id number] 01/06/2011 10:24:00 Document Registration [id number] 12/15/2010 09:44:00 Document Registration [id number] 09/13/2010 09:15:00 Document Registration [id number] 09/07/2010 05:48:00 Document Registration [id number] 09/06/2010 06:44:00 Document Registration [id number] 09/02/2010 08:47:00 Document Registration [id number] 08/23/2010 10:13:00 Document Registration [id number] 07/05/2010 13:59:00 Document Registration [id number] 06/04/2010 11:04:00 Document Registration [id number] 05/24/2010 10:02:00 Document Registration [id number] 04/12/2010 07:11:00 Document Registration [id number] 03/14/2010 09:24:00 Document Registration
[2017-12-10] MEDS: cefTRIAXone INJECTION 1,000 MG in NS (IVPB) 50 ML IV SCH (17:22)
[2017-12-10] MEDS: RIVAROXABAN 15 MG TABLET (XARELTO) PO SCH (17:22)
--- NOTE | 2017-12-10 19:52 | Wound Care Assessment ---
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 She has recently agreed to arterial intervention, which has been accomplished. She complains of pain at the anterior lower calf and is able to wiggle her toes. She states that her ankle is fixed due to a previous injury. She appears confused and admits to active hallucinations. Past Medical History: Admits Peripheral Artery Disease Smoking Status: Former Smoker (u p until a few weeks ago, at the time of her angioplasty.) Recreational Drug Use: No Alcohol Use: Denies Use Review of Systems Pulmonary: No Dyspnea Cardiovascular: No: Chest Pain Musculoskeletal: leg pain (Right.) Exam Vital Signs Date Time Temp Pulse Resp B/P (MAP) Pulse Ox O2 Delivery O2 Flow Rate FiO2 12/10/17 19:38 98.6 115 20 117/39 (65) 93 Room Air Capillary Refill : Less Than 3 Seconds General Appearance: no apparent distress Respiratory: no respiratory distress Skin: other (R anterior foot -- 4.5 x 4.0 x 0.4 cm, 100 % eschar, with some erythema of the periwound; R anterior ankle -- 1.7 x 1.8 x 0.4 cm, 100 % slough; R osterior heel -- 1.5 x 1.5 x 0.1 cm, 100 % eschar.) Results Laboratory Tests 12/10/17 05:49: White Blood Count 13.7H, Red Blood Count 4.77, Hemoglobin 15.3, Hematocrit 45, Mean Corpuscular Volume 94, Mean Corpuscular Hemoglobin 32, Mean Corpuscular Hemoglobin Concent 34, Red Cell Distribution Width 16.7H, Platelet Count 268, Mean Platelet Volume 11.0H, Neutrophils (%) (Auto) 78H, Lymphocytes (%) (Auto) 11L, Monocytes (%) (Auto) 9, Eosinophils (%) (Auto) 1, Basophils (%) (Auto) 0, Neutrophils # (Auto) 10.7H, Lymphocytes # (Auto) 1.5, Monocytes # (Auto) 1.3H, Eosinophils # (Auto) 0.1, Basophils # (Auto) 0.1, Sodium Level 141, Potassium Level 3.8, Chloride Level 104, Carbon Dioxide Level 22, Anion Gap 15H, Blood Urea Nitrogen 34H, Creatinine 1.24, Estimat Glomerular Filtration Rate 41, BUN/ Creatinine Ratio 27, Glucose Level 79, Calcium Level 9.1, Total Bilirubin 0.9, Aspartate Amino Transf (AST/SGOT) 31, Alanine Aminotransferase (ALT/SGPT) 15, Alkaline Phosphatase 97, Total Protein 6.2L, Albumin 3.4 Microbiology 12/09/17 Urine Culture - Final, Complete See Comments Microbiology 12/09/17 Urine Culture - Final, Complete See Comments Assessment/Plan/Dx 1. Arterial ulcers of Dorsum R foot, anterior ankle, and R posterior heel, with necrotic bases, showing a stable appearance from previous exam. 2. Peripheral arterial disease, s/p angioplasty per Dr. Henderson. 3. Confusion/hallucinations, ? etiology. Plan: Will paint R leg wounds with Betadine twice a day and observe. ALIDA HEADLEY MD Dec 10, 2017 19:52
[2017-12-10] MEDS: ATORVASTATIN 40 MG (LIPITOR) TABLET PO SCH (21:23)
[2017-12-10] MEDS: DILTIAZEM 180 MG (CARDIZEM CD) CAP PO SCH (21:23)
[2017-12-10] MEDS: POVIDONE (BETADINE) 10% SOLN 240 ML BTL TOP SCH (21:24)
[2017-12-11 00:37] VITALS: BP 124/89
[2017-12-11 04:23] VITALS: BP 93/55
[2017-12-11] MEDS: CATHETER FLUSH 10 ML SYR IV SCH ×3 (06:38→20:16)
[2017-12-11] MEDS: PANTOPRAZOLE 40 MG (PROTONIX) TAB PO SCH (06:49)
[2017-12-11] MEDS: CLOPIDOGREL 75 MG (PLAVIX) TABLET PO SCH (07:58)
[2017-12-11] MEDS: meTOprolol SUCCINATE 100 MG (TOPROL XL) TAB PO SCH (07:58)
[2017-12-11] MEDS: POVIDONE (BETADINE) 10% SOLN 240 ML BTL TOP SCH ×2 (07:59→20:16)
[2017-12-11 08:00] VITALS: BP 112/59
--- NOTE | 2017-12-11 09:44 | Progress Note-Hospitalist ---
Subjective HPI/CC On Admission Date Seen by Provider: Dec 11, 2017 Time Seen by Provider: 09:00 Mrs. Cowan is an 87-year-old white female who apparently fell at home earlier in the day. There was no initial pain but she became worried that she may have injured her right leg. She has known significant peripheral vascular disease and nonhealing wounds secondary to this. She told the emergency room physician she had chronic osteomyelitis but this has not been documented by any lab or radiologic evaluation that I'm aware of. She denied any urinary symptoms however she did have pyuria with significant bacteriuria. A friend later came assume that she been increasingly confused at home. To me she admitted pleasant hallucinations seeing animals in her home like rabbits and squirrels. She did see one snake in the yard was not likely there nonthreatening. For the past several months she has been losing weight and thus far there has not been significant healing of a large dorsal ischemic foot ulcer post posterior tibial angioplasty per Dr. Marquez. She is now 3-4 weeks out as I recall. She did report she's noticed increased ankle pain worse with range of motion little different than the usual neuropathic-type lancinating right foot pain she has had in the past. She is not sure how long this is been going on. She denied night sweats chills or fever. Subjective/Events-last exam Patient still reports feeling little fuzzy but overall is better and reports that hallucinations have for now ceased. These roll visual and nonthreatening in nature. She reports decreased right ankle pain and she is beginning to get her appetite back. She voices no other complaints. Her daughter was present the interview and asked my opinion about whether or not she should be driving answer detail below. She denies dysuria or increased frequency. She denies night sweats chills or fever. Objective Exam Vital Signs Vital Signs Date Time Temp Pulse Resp B/P (MAP) Pulse Ox O2 Delivery O2 Flow Rate FiO2 12/11/17 09:00 Room Air 12/11/17 08:00 97.8 81 20 112/59 (76) 94 Capillary Refill : Less Than 3 Seconds General Appearance: No Apparent Distress, Chronically ill Respiratory: Chest Non Tender, Lungs Clear, Normal Breath Sounds, No Accessory Muscle Use, No Respiratory Distress Cardiovascular: No Gallop, No JVD, No Murmur, Irregularly Irregular Gastrointestinal: Normal Bowel Sounds, No Organomegaly, No Pulsatile Mass, Non Tender, Soft Extremity: Other (There is decreased warmth erythema and swelling about the right ankle. Chronic ulcerations stable no drainage noted.) Results/Procedures Lab Patient resulted labs reviewed. Assessment/Plan Assessment and Plan Assess & Plan/Chief Complaint 1. Urinary tract infection with sepsis not severe improving. White count remains elevated but and all other regards patient status appears better. UA had multiple organisms and is not being cultured for this reason however with significant pyuria urinary tract infection is still likely. We'll continue Rocephin considering clinical improvement. 2. Right ankle pain possible inflammatory arthritis versus cellulitis which may also be contributing to sepsis significantly improved now. This suggests that septic arthritis is not present. Gout is also strongly the differential diagnosis will obtain a uric acid level today and give another dose of Solu- Medrol 40 mg. 3. A fibrillation with rapid ventricular response heart rate significantly improved continue beta jessica and calcium channel jessica therapy currently metoprolol and diltiazem CD. 4. With multifactorial failure to thrive and affect this patient lives alone at home and the significantly deconditioned with multiple health problems she her daughter in agreement after discussion of residential placement to continue wound care and physical therapy. She should've been considered inpatient status with elevated white count and altered sensorium pyuria and foot inflammation with known severe peripheral vascular disease. I mistakenly thought that indicating her admission status as inpatient on the H&P change her order. This change admission status was officially ordered today to inpatient. business services vice president involved with helping in residential placement. Clinical Quality Measures DVT/VTE Risk/Contraindication: Risk Factor Score Per Nursin RFS Level Per Nursing on Admit: 3=High ROMELIA BALES MD Dec 11, 2017 09:44
[2017-12-11] MEDS ORDERED: methylPREDNISolone 40 MG/ML (Solu-MEDROL) VIAL IV NR (09:45)
--- NOTE | 2017-12-11 11:42 | Physical Therapy Evaluation ---
PT Evaluation-General Medical Diagnosis Admission Date Dec 09, 2017 at 16:25 Medical Diagnosis: Hallucinations/UTI Onset Date: Dec 09, 2017 Therapy Diagnosis Therapy Diagnosis: debility/weakness Height/Weight Height (Feet): 5 Height (Inches): 1.00 Weight (Pounds): 124 Weight (Ounces): 2.0 Precautions Precautions/Isolations: Contact Isolation, Fall Prevention Weight Bear Status Right Lower Extremity: Right Weight Bearing/Tolerated Left Lower Extremity: Left Weight Bearing/Tolerated Referral Physician: Wandy Reason for Referral: Evaluation/Treatment Medical History Pertinent Medical History: Atrial Fib, Arthritis, Dementia, HTN, PVD Additional Medical History TIA/osteomyelitis right LE Current History ED secondary to got tangled up in FWW and fell/chronic right LE wound (>10 years.) with vascular intervention by Dr. Henderson Reviewed History: Yes Social History Home: Apartment Current Living Status: Alone Prior/Core FIM Prior Level of Function Functional [place] Measure 0=Not Assessed/NA 4=Minimal Assistance 1=Total Assistance 5=Supervision or Setup 2=Maximal Assistance 6=Modified [place] 3=Moderate Assistance 7=Complete [place] Bed Mobility: 6 Transfers (B,C,W/C) (FIM): 6 Gait: 6 PT Evaluation-Current Subjective Patient agrees to PT. Family present. Pain Numeric Pain Scale: 5-Moderate Pain Location: Right, Dorsal Location Body Site: Foot Pain Description: Chronic Objective Patient Orientation: Person, Time, Situation Problem Solving: Fair ROM/Strength ROM Lower Extremities bilateral LE WNL Strength Lower Extremities 3/5 grossly bilaterally Integumentary/Posture Integumentary chronic right LE/foot wound x 10 yrs (nonhealing) Bowel Incontinence: No Bladder Incontinence: No Posture slightly kyphotic/functional Neuromuscular (Tone, Coordination, Reflexes) grossly intact Sensory Vision: Functional Hearing: Functional Sensation Right Lower Extremit: Intact Sensation Left Lower Extremity: Intact Transfers Functional [place] Measure 0=Not Assessed/NA 4=Minimal Assistance 1=Total Assistance 5=Supervision or Setup 2=Maximal Assistance 6=Modified [place] 3=Moderate Assistance 7=Complete [place] Transfers (B, C, W/C) (FIM): 6 Scootin Rollin Supine to/from Sit: 6 Sit to/from Stand: 6 Gait Mode of Locomotion: Walk Anticipated Mode of Locomotion: Walk Gait (FIM): 5 Distance (FIM): 3=150 ft Distance: 540' Gait Level of Assist: 5 Gait Assistive Device: FWW Comments/Gait Description safe and functional gait sequence with FWW and SBA for safety Balance Sitting Static: Normal Sitting Dynamic: Normal Standing Static: Normal Standing Dynamic: Normal Assessment/Needs 87 y.o. female will benefit from short term skilled PT to address functional strength and mobility to ensure safe return to home or care facility for continued care. Patient was able to don socks with set up and is SBA to Mod I with gross motor skills. She does have a nonhealing wound right foot/LE x 10 yrs. From a PT standpoint, patient would benefit from extended care facility to ensure safety and healing of wounds. Rehab Potential: Fair PT Industrial Sewer Goals Industrial Sewer Goals PT Industrial Sewer Goals Time Frame: Dec 21, 2017 Transfers (B,C,W/C) (FIM): 6 Gait (FIM): 6 Gait distance (FIM): 3=150 ft Gait Level of Assist: 6 Gait Assistive Device: FWW PT Plan Problem List Problem List: Activity Tolerance, Functional Strength, Safety Treatment/Plan Treatment Plan: Continue Plan of Care Treatment Plan: Education, Functional Activity Chasity, Functional Strength, Gait , Safety, Therapeutic Exercise, Transfers Treatment Duration: Dec 21, 2017 Frequency: 6 times per week Estimated Hrs Per Day: .5 hour per day Patient and/or Family Agrees t: Yes Discharge Recommendations Therapy D/C Recommendations: Half-Way Placement, Group Home (TCU/NH) Time/GCodes Time In: 1055 Time Out: 1120 Total Billed Treatment Time: 25 Total Billed Treatment 1 visit EVHighC 25 min G Codes Necessary: Yes PT/OT Therapy GCodes Therapy Functional Limitation: Physical Therapy Test(s)/Tool used to determine: FIM Functional Limitation-Current Charge Code: MOBCUR Modifier: CJ Functional Limitation-Goal Charge Code: MOBGOAL Modifier: TORIE PAIGE PT Dec 11, 2017 11:42
[2017-12-11] MEDS ORDERED: HYDROcodone/APAP 5 MG/325 MG (LORTAB) TAB ONE (12:14)
[2017-12-11] MEDS ORDERED: HYDROcodone/APAP 5 MG/325 MG (LORTAB) TAB PO PRN (12:15)
[2017-12-11 16:43] VITALS: BP 94/60
[2017-12-11] MEDS: RIVAROXABAN 15 MG TABLET (XARELTO) PO SCH (17:13)
[2017-12-11] MEDS: cefTRIAXone INJECTION 1,000 MG in NS (IVPB) 50 ML IV SCH (17:14)
[2017-12-11] MEDS ORDERED: LIDOCAINE TOPICAL 4% 50 ML BTL TP PRN (19:45)
[2017-12-11] MEDS: ATORVASTATIN 40 MG (LIPITOR) TABLET PO SCH (20:16)
[2017-12-11] MEDS: DILTIAZEM 180 MG (CARDIZEM CD) CAP PO SCH (20:16)
[2017-12-12 00:30] VITALS: BP 127/65
[2017-12-12] MEDS: CATHETER FLUSH 10 ML SYR IV SCH ×2 (06:40→13:32)
[2017-12-12] MEDS: PANTOPRAZOLE 40 MG (PROTONIX) TAB PO SCH (06:40)
[2017-12-12 07:10] LABS: BASOPHILS % (AUTO) 0 % (0-10); EOSINOPHILS % (AUTO) 0 % (0-10); HEMATOCRIT 44 % (35-52); LYMPHOCYTES # (AUTO) 0.9 X 10^3 (1.0-4.0); LYMPHOCYTES % (AUTO) 8 % (12-44); MEAN CORPUSCULAR HEMOGLOBIN 32 PG (25-34); MEAN CORPUSCULAR HGB CONC 34 G/DL (32-36); MEAN CORPUSCULAR VOLUME 95 FL (80-99); MEAN PLATELET VOLUME 11.5 FL (7.4-10.4); MONOCYTES # (AUTO) 0.7 X 10^3 (0.0-1.0); MONOCYTES % (AUTO) 6 % (0-12); NEUTROPHILS # (AUTO) 9.5 X 10^3 (1.8-7.8); NEUTROPHILS % (AUTO) 85 % (42-75); PLATELET COUNT 271 10^3/uL (130-400); RED BLOOD COUNT 4.66 10^6/uL (4.35-5.85); RED CELL DISTRIBUTION WIDTH 16.9 % (10.0-14.5); WHITE BLOOD COUNT 11.1 10^3/uL (4.3-11.0)
[2017-12-12 07:30] LABS: BUN/CREATININE RATIO 37; CALCIUM 8.8 MG/DL (8.5-10.1); CARBON DIOXIDE 24 MMOL/L (21-32); CHLORIDE 106 MMOL/L (98-107); CREATININE SERUM 0.78 MG/DL (0.60-1.30); GFR ESTIMATED > 60; GLUCOSE 145 MG/DL (70-105); POTASSIUM 3.8 MMOL/L (3.6-5.0); SODIUM 141 MMOL/L (135-145); URIC ACID 8.8 MG/DL (2.6-7.2)
--- NOTE | 2017-12-12 07:53 | Discharge Inst-Skilled Nursing ---
Discharge Inst-Skilled NF Consult/Follow Up/Orders Skilled NF Admit to: [facility] Certification (SNF) I certify that SNF services are required to be given on an inpatient basis because of the above named patient's need for retirement care on a continuing basis for the conditions(s) for which he/she was receiving inpatient hospital services prior to his/her transfer to the SNF. [facility] Facility Order: Nursing Services, Civil Engineering Manager-Evaluate & Treat, Physical Therapy-Evaluate & Treat, Wound Care-Eval/Treat Discharge Diet: No Restrictions Daily Activity as Tolerated: Yes New & Resume Previous Orders Romelia Bales Dec 12, 2017 07:52 ROMELIA BALES MD Dec 12, 2017 07:53
[2017-12-12 08:19] VITALS: BP 139/75
[2017-12-12] MEDS ORDERED: predniSONE 20 MG TAB PO NR (08:30)
--- NOTE | 2017-12-12 08:34 | D/C HH Face to Face Order ---
D/C Face to Face Orders Instructions for Patient Patient Instructions/FollowUp: wound care heart rate monitering for afib and BP and nutritional statis Physician to follow Patient: Romelia Bales Discharge Diet for Home: No Restrictions Patient Data-Allergies,Ht & Wt Patient Allergies: Coded Allergies: codeine (Unverified Allergy, Mild, sore throat, 12/09/17) levofloxacin (Verified Allergy, Unknown, 12/09/17) sulfamethoxazole (Verified Adverse Reaction, Unknown, RASH, 11/02/17) trimethoprim (Verified Adverse Reaction, Unknown, RASH, 11/02/17) Height (Feet): 5 Height (Inches): 1.00 Weight (Pounds): 124 Weight (Ounces): 2.0 Home Health Need/Face to Face Date of Face to Face: Dec 12, 2017 Clinical Findings: Generalized weakness and fatigue, Pain with ambulation, Non- healing wound I have seen Pt [id number]: Yes Discharged To: Home Diagnosis/Conditions: 1. PVD with ischemic R LE ulcers 2. AFIB with RVR 3.HTN 4. Probable gout R ankle Patient is Homebound due to: CognItive deficits, Muscle weakness, Pain w/ ambulation Homebound Status Due to the above stated illness, injury or surgical procedure (medical condition or diagnosis) and associated clinical findings, the patient is homebound because of his/her inability to leave home except with aid of a supportive device and/or person AND leaving the home requires a considerable and taxing effort or is medically contraindicated. Pt req the following assistanc: [facility] Line Start Date: Dec 09, 2017 Line Start Time: 1515 Line Type: Saline Lock Site Location: Antecubital Certify Stmt I certify that this patient is under my care and that I, a nurse practitioner or a physician; a floor covering printer assistant working with me, had a face to face encounter that - meets the physician face to face encounter requirements with this patient as dated. ROMELIA BALES MD Dec 12, 2017 08:30
--- NOTE | 2017-12-12 08:35 | Progress Note-Hospitalist ---
Subjective HPI/CC On Admission Date Seen by Provider: Dec 12, 2017 Time Seen by Provider: 08:35 Mrs. Cowan is an 87-year-old white female who apparently fell at home earlier in the day. There was no initial pain but she became worried that she may have injured her right leg. She has known significant peripheral vascular disease and nonhealing wounds secondary to this. She told the emergency room physician she had chronic osteomyelitis but this has not been documented by any lab or radiologic evaluation that I'm aware of. She denied any urinary symptoms however she did have pyuria with significant bacteriuria. A friend later came assume that she been increasingly confused at home. To me she admitted pleasant hallucinations seeing animals in her home like rabbits and squirrels. She did see one snake in the yard was not likely there nonthreatening. For the past several months she has been losing weight and thus far there has not been significant healing of a large dorsal ischemic foot ulcer post posterior tibial angioplasty per Dr. Marquez. She is now 3-4 weeks out as I recall. She did report she's noticed increased ankle pain worse with range of motion little different than the usual neuropathic-type lancinating right foot pain she has had in the past. She is not sure how long this is been going on. She denied night sweats chills or fever. Objective Exam Vital Signs Vital Signs Date Time Temp Pulse Resp B/P (MAP) Pulse Ox O2 Delivery O2 Flow Rate FiO2 12/12/17 09:00 Room Air 12/12/17 08:19 98.2 89 20 139/75 (96) 90 Capillary Refill : Less Than 3 Seconds General Appearance: No Apparent Distress Results/Procedures Lab Patient resulted labs reviewed. Assessment/Plan Assessment and Plan Assess & Plan/Chief Complaint 1. Urinary tract infection with sepsis not severe improving. White count remains elevated but and all other regards patient status appears better. UA had multiple organisms and is not being cultured for this reason however with significant pyuria urinary tract infection is still likely. We'll continue Rocephin considering clinical improvement. 2. Right ankle pain possible inflammatory arthritis versus cellulitis which may also be contributing to sepsis significantly improved now. This suggests that septic arthritis is not present. Gout is also strongly the differential diagnosis will obtain a uric acid level today and give another dose of Solu- Medrol 40 mg. 3. A fibrillation with rapid ventricular response heart rate significantly improved continue beta jessica and calcium channel jessica therapy currently metoprolol and diltiazem CD. 4. With multifactorial failure to thrive and affect this patient lives alone at home and the significantly deconditioned with multiple health problems she her daughter in agreement after discussion of fpc placement to continue wound care and physical therapy. She should've been considered inpatient status with elevated white count and altered sensorium pyuria and foot inflammation with known severe peripheral vascular disease. I mistakenly thought that indicating her admission status as inpatient on the H&P change her order. This change admission status was officially ordered today to inpatient. reference services head involved with helping in fpc placement. Clinical Quality Measures DVT/VTE Risk/Contraindication: Risk Factor Score Per Nursin RFS Level Per Nursing on Admit: 3=High ROMELIA BALES MD Dec 12, 2017 08:35
[2017-12-12] MEDS ORDERED: PRD20T PO (08:38)
[2017-12-12] MEDS: CLOPIDOGREL 75 MG (PLAVIX) TABLET PO SCH (08:44)
[2017-12-12] MEDS: POVIDONE (BETADINE) 10% SOLN 240 ML BTL TOP SCH (08:44)
[2017-12-12] MEDS: meTOprolol SUCCINATE 100 MG (TOPROL XL) TAB PO SCH (08:44)
--- NOTE | 2017-12-12 09:26 | Physical Therapy Daily Note ---
PT Daily Note-Current Subjective Pt. agrees to rx. States she feels she is doing very well and compliments the hospital and staff on the care she has received Pain Numeric Pain Scale: 0-No Pain Appearance pt. sitting EOB no dressing on feet. Hosp socks applied Mental Status Patient Orientation: Normal For Age Transfers Functional [place] Measure 0=Not Assessed/NA 4=Minimal Assistance 1=Total Assistance 5=Supervision or Setup 2=Maximal Assistance 6=Modified [place] 3=Moderate Assistance 7=Complete IndependenceIRFPAI Quality Coding Scale 6 Independent with activity with or without an assistive device 5 Patient requires set up or clean up by helper. Patient completes activity by themselves 4 Supervision or touching assist (CGA). Dawson provide cues , steadying assist 3 The helper provides less than half the effort to complete the activity 2 The helper provides more than half the effort to complete the activity 1 Dependent. The helper does all the effort to complete an activity 7 Patient refused to complete or attempt activity 9 The patient did not perform the activity before the current illness or injury 88 Not attempted due to Medical conditions or safety concerns all TRFs mod I Weight Bearing Right Lower Extremity: Right Weight Bearing/Tolerated Left Lower Extremity: Left Weight Bearing/Tolerated Gait Training Does the Patient Walk?: Yes Gait Assistive Device: FWW 400 ft FWW SBA to Mod I no LOB, safe use of AD Exercises Seated Therapy Exercises: Ankle pumps, Sit to stand, Long arc quads, Hip flexion Seated Reps: 20 Assessment Current Status: Good Progress PT Chcf Goals Chcf Goals PT Chcf Goals Time Frame: Dec 21, 2017 Transfers (B,C,W/C) (FIM): 6 Rollin Gait (FIM): 6 Gait distance (FIM): 3=150 ft Gait Level of Assist: 6 Gait Assistive Device: FWW PT Plan Treatment/Plan Treatment Plan: Discontinue PT, goals met Treatment Plan: Education, Functional Activity Chasity, Functional Strength, Gait , Safety, Therapeutic Exercise, Transfers Treatment Duration: Dec 21, 2017 Frequency: 6 times per week Estimated Hrs Per Day: .5 hour per day Patient and/or Family Agrees t: Yes Safety Risks/Education Patient Education: Gait Training, Transfer Techniques Teaching Recipient: Patient Teaching Methods: Demonstration, Discussion Response to Teaching: Verbalize Understanding, Return Demonstration Time/GCodes Time In: 845 Time Out: 910 Total Billed Treatment Time: 25 Total Billed Treatment 1,GT15m,LM732k G Codes Necessary: No PT/OT Therapy GCodes Therapy Functional Limitation: Physical Therapy Test(s)/Tool used to determine: FIM Functional Limitation-Current Charge Code: MOBCUR Modifier: PERRY Functional Limitation-Goal Charge Code: CASIGOAL Modifier: AVE BRYANT EDITORIAL ASSISTANT Dec 12, 2017 09:26
[2017-12-12] MEDS: cefTRIAXone INJECTION 1,000 MG in NS (IVPB) 50 ML IV SCH (13:32)
[2017-12-12] MEDS: RIVAROXABAN 15 MG TABLET (XARELTO) PO SCH (15:34)
--- NOTE | 2017-12-16 12:05 | Discharge Summary-Hospitalist ---
Diagnosis/Chief Complaint Date of Admission Dec 09, 2017 at 17:47 Date of Discharge Dec 12, 2017 at 07:51 Discharge Date: Dec 12, 2017 Admission Diagnosis A/P 1. Urinary tract infection Rocephin has been initiated. 2. Possible inflammatory arthropathy of the right lower extremity. Cellulitis, septic arthritis or osteomyelitis are also in the differential diagnosis . We' ll give 1 dose of Solu-Medrol if there is not significant improvement will need to consider cellulitis etc. and broadening antibiotic coverage with further x- ray evaluation.. Wound care has been consulted. My concerns and the case was discussed with Dr. Vásquez 3. Hallucinations suspect number 1 or 2 the patient is not currently on any medications prescription or [id number] with with any significant likelihood of contributing. 4. Failure to thrive multifactorial consider early dementia will be discussing strong recommendations for shelter placement on discharge for wound care physical and occupational therapy. Discharge Diagnosis 1. Urinary tract infection without sepsis 2. Inflammatory arthritis right ankle 3. Hallucinations 4. Persistent atrial fibrillation 5. Peripheral vascular disease 6. Debility multifactorial 7. Ischemic right lower extremity ulcerations. Discharge Summary Discharge Physical Exam Allergies: Coded Allergies: codeine (Unverified Allergy, Mild, sore throat, 12/09/17) levofloxacin (Verified Allergy, Unknown, 12/09/17) sulfamethoxazole (Verified Adverse Reaction, Unknown, RASH, 11/02/17) trimethoprim (Verified Adverse Reaction, Unknown, RASH, 11/02/17) Vitals & I&Os Vital Signs Date Time Temp Pulse Resp B/P (MAP) Pulse Ox O2 Delivery O2 Flow Rate FiO2 12/12/17 09:00 Room Air 12/12/17 08:19 98.2 89 20 139/75 (96) 90 General Appearance: Alert Respiratory: Clear to Auscultation Hospital Course Mrs. Cowan is an 87-year-old white female who apparently fell at home earlier in the day. There was no initial pain but she became worried that she may have injured her right leg. She has known significant peripheral vascular disease and nonhealing wounds secondary to this. She told the emergency room physician she had chronic osteomyelitis but this has not been documented by any lab or radiologic evaluation that I'm aware of. She denied any urinary symptoms however she did have pyuria with significant bacteriuria. A friend later came assume that she been increasingly confused at home. To me she admitted pleasant hallucinations seeing animals in her home like rabbits and squirrels. She did see one snake in the yard was not likely there nonthreatening. For the past several months she has been losing weight and thus far there has not been significant healing of a large dorsal ischemic foot ulcer post posterior tibial angioplasty per Dr. Marquez. She is now 3-4 weeks out as I recall. She did report she's noticed increased ankle pain worse with range of motion little different than the usual neuropathic-type lancinating right foot pain she has had in the past. She is not sure how long this is been going on. She denied night sweats chills or fever. Hospital course antibiotics were initiated. Ultimately her urine culture revealed greater than 3 gram-positive organisms for which contamination was likely a factor. Despite this with moderate bacteria and moderate pyuria believe that urinary tract infection is likely present and the patient did improve on antibiotics. The abrupt onset of inflammation and pain about the right ankle which was new for the patient was highly suspicious for gout. Her uric acid was significantly elevated at 8.8. Her response to steroids also was compatible with likely acute gout responding far quicker minimal would been expected for either underlying cellulitis or septic arthritis essentially ruling these conditions out. The patient had resolution of hallucinations but remained extremely weak with high likelihood of readmission of sent home or she has no support. Both she and her daughter were agreeable to a shelter placement skilled for physical therapy. Atrial fibrillation remained rate controlled her blood pressures were low normal and considering probable gout her diuretic therapy was discontinued. If this is not adequate for control of acute inflammatory arthritis/possible gout exacerbations will need to consider initiating urate lowering therapy but will hold for now. A great deal her problems likely stem from poor nutrition and failure to thrive. Later as an outpatient we'll likely obtain a Mini-Mental status examination to evaluate for underlying dementia which is in the differential diagnosis in this patient. Labs (last 24 hrs) Microbiology 12/09/17 Urine Culture - Final, Complete See Comments Patient resulted labs reviewed. Discussion & Recommendations Discharge Planning: >30 minutes discharge planning Discharge Home Medications: Active Scripts Active Prednisone 20 Mg Tab 20 Mg PO DAILY 3 Days Reported Tylenol Extra Strength (Acetaminophen) 500 Mg Tablet 500-1,000 Mg PO Q6H PRN Plavix (Clopidogrel Bisulfate) 75 Mg Tablet 75 Mg PO DAILY Pantoprazole Sodium 40 Mg Tablet.dr 40 Mg PO DAILY Tramadol HCl 50 Mg Tablet 50 Mg PO Q4H PRN Cartia Xt (Diltiazem HCl) 180 Mg Cap.er.24h 180 Mg PO DAILY Lidocaine HCl 30 Ml Jel..ml. TOP TID PRN Atorvastatin Calcium 40 Mg Tablet 40 Mg PO HS LAST FILLED #30 09-04-17 Metoprolol Succinate 100 Mg Tab.er.24h 100 Mg PO DAILY Xarelto (Rivaroxaban) 15 Mg Tablet 15 Mg PO DAILY Instructions to patient/family Please see electronic discharge instructions given to patient. Clinical Quality Measures DVT/VTE Risk/Contraindication: Risk Factor Score Per Nursin RFS Level Per Nursing on Admit: 3=High Copy Copies To 2: ROMELIA BALES MD, MARK D MD Dec 16, 2017 12:05
== END 2017-12-12 07:51 ==
LOC: EDUNIT# 09:53 → ER 09:54 → 4TH 16:25 → UNDOADMOB 16:25 → 4TH 17:47 → UNDODISOB 12-12 15:50
PROVIDERS: ADMIT Family Medicine; ATTEND Family Medicine
DX: A41.9 Sepsis, unspecified organism (principal); N39.0 Urinary tract infection, site not specified; I70.235 Atherosclerosis of native arteries of right leg with ulceration of other part of foot; L97.319 Non-pressure chronic ulcer of right ankle with unspecified severity; L97.419 Non-pressure chronic ulcer of right heel and midfoot with unspecified severity; L97.519 Non-pressure chronic ulcer of other part of right foot with unspecified severity; R62.7 Adult failure to thrive; M25.571 Pain in right ankle and joints of right foot; I48.0 Paroxysmal atrial fibrillation; I25.10 Atherosclerotic heart disease of native coronary artery without angina pectoris; I10 Essential (primary) hypertension; E78.00 Pure hypercholesterolemia, unspecified; R91.8 Other nonspecific abnormal finding of lung field; W18.09XA Striking against other object with subsequent fall, initial encounter; Y92.013 Bedroom of single-family (private) house as the place of occurrence of the external cause; Z87.891 Personal history of nicotine dependence; Z95.1 Presence of aortocoronary bypass graft
CPT/HCPCS: 36415; 71045; 71250; 73590; 80048; 80053; 81000; 83880; 84550; 85025; 87088; 93005; 96365; G0378

== ENCOUNTER → 2017-12-13 | Outpatient (CLI) | payer MEDICARE ==
[~2017-12-13] MED LIST changes: +ACET-2267 PO; +CLOP75TA69 PO; +DILT180C54 PO; +LIDO30JE3 TOP; +PANT40TA3 PO; +POVI3780 TP; +PRD20T PO; +TRAM50TA2 PO; +TRIA1TAB3 PO
== END ==
LOC: WOUNDCARE 09:41
PROVIDERS: ATTEND Surgery
DX: I70.232 Atherosclerosis of native arteries of right leg with ulceration of calf (principal); L97.212 Non-pressure chronic ulcer of right calf with fat layer exposed; I70.235 Atherosclerosis of native arteries of right leg with ulceration of other part of foot; L97.512 Non-pressure chronic ulcer of other part of right foot with fat layer exposed; I70.245 Atherosclerosis of native arteries of left leg with ulceration of other part of foot; L97.522 Non-pressure chronic ulcer of other part of left foot with fat layer exposed; I87.333 Chronic venous hypertension (idiopathic) with ulcer and inflammation of bilateral lower extremity
CPT/HCPCS: 99213

== ENCOUNTER → 2017-12-20 | Outpatient (CLI) | payer MEDICARE | LOC: WOUNDCARE 10:27 | PROVIDERS: ATTEND Nurse Practitioner | DX: L97.212 Non-pressure chronic ulcer of right calf with fat layer exposed (principal); L97.512 Non-pressure chronic ulcer of other part of right foot with fat layer exposed; L97.522 Non-pressure chronic ulcer of other part of left foot with fat layer exposed; I70.232 Atherosclerosis of native arteries of right leg with ulceration of calf; I70.235 Atherosclerosis of native arteries of right leg with ulceration of other part of foot; I70.245 Atherosclerosis of native arteries of left leg with ulceration of other part of foot; I87.333 Chronic venous hypertension (idiopathic) with ulcer and inflammation of bilateral lower extremity | CPT/HCPCS: 99213 ==

== ENCOUNTER → 2017-12-27 | Outpatient (CLI) | payer MEDICARE | LOC: WOUNDCARE 10:24 | PROVIDERS: ATTEND Nurse Practitioner | DX: L97.212 Non-pressure chronic ulcer of right calf with fat layer exposed (principal); L97.512 Non-pressure chronic ulcer of other part of right foot with fat layer exposed; L97.522 Non-pressure chronic ulcer of other part of left foot with fat layer exposed; I70.232 Atherosclerosis of native arteries of right leg with ulceration of calf; I70.235 Atherosclerosis of native arteries of right leg with ulceration of other part of foot; I70.245 Atherosclerosis of native arteries of left leg with ulceration of other part of foot; I87.333 Chronic venous hypertension (idiopathic) with ulcer and inflammation of bilateral lower extremity | CPT/HCPCS: 99213 ==

== ENCOUNTER 2017-12-31 11:24 | Inpatient (IN) | payer MEDICARE ==
[~2017-12-31] VITALS: Ht 154.9 cm; Wt 64.9 kg
[2017-12-31 11:24] VITALS: BP 130/97
[~2017-12-31 11:24] MED LIST changes: -POVI3780 TP
[2017-12-31] MEDS ORDERED: NS IV 1000 ML 1,000 ML IV STA (11:27)
[2017-12-31] MEDS ORDERED: VANCOMYCIN INJECTION 1,000 MG in NS (IVPB) 250 ML IV ONE (11:30)
[2017-12-31] MEDS ORDERED: ACETAMINOPHEN 500 MG TAB (TYLENOL) PO PRN ×2 (11:30→15:15)
[2017-12-31] MEDS ORDERED: fentaNYL INJECTION 100 MCG/2 ML AMP IVP ONE (11:45)
--- NOTE | 2017-12-31 11:45 | ED Lower Extremity ---
General Stated Complaint: LEG PAIN Source: patient, snf records, caregiver Exam Limitations: no limitations History of Present Illness Date Seen by Provider: Dec 31, 2017 Time Seen by Provider: 11:34 Initial Comments Patient resents to ER by private conveyance from [place] as with her old friend and caregiver with chief complaint that for the past 3 days she's had progressively worsening pain in bilateral lower extremities especially the right leg says is swollen up to the level of the knee. She has had a problem with dysmotility, chronic wounds and arterial insufficiency peripheral vascular disease. Last month she had an echocardiogram done and Dr. Henderson her cost recorder attempted to Angiocath her lower extremities but said that the disease was not amenable to stenting. She does have 3 since her heart. She does takes Xarelto Plavix and is on beta blockers. She's having severe 10 out of 10 pain she's tried several different pain medicines but she does not the name of them at the home and when they called the doctor today he recommended they just come to the ER to be checked out for possible admission for pain management. She is not having any nausea fevers chills sweats diarrhea or dysuria. Allergies and Home Medications Allergies Coded Allergies: codeine (Unverified Allergy, Mild, sore throat, 12/09/17) levofloxacin (Verified Allergy, Unknown, 12/09/17) sulfamethoxazole (Verified Adverse Reaction, Unknown, RASH, 11/02/17) trimethoprim (Verified Adverse Reaction, Unknown, RASH, 11/02/17) Home Medications Acetaminophen 500 Mg Tablet, 500-1,000 MG PO Q6H PRN for PAIN-MILD, (Reported) Atorvastatin Calcium 40 Mg Tablet, 40 MG PO HS, (Reported) LAST FILLED #30 09-04-17 Clopidogrel Bisulfate 75 Mg Tablet, 75 MG PO DAILY, (Reported) Diltiazem HCl 180 Mg Cap.er.24h, 180 MG PO DAILY, (Reported) Lidocaine HCl 30 Ml Jel..ml., TOP TID PRN for PAIN, (Reported) Metoprolol Succinate 100 Mg Tab.er.24h, 100 MG PO DAILY, (Reported) Pantoprazole Sodium 40 Mg Tablet.dr, 40 MG PO DAILY, (Reported) Prednisone 20 Mg Tab, 20 MG PO DAILY Prescribed by: ROMELIA BALES on 12/12/17 0838 Rivaroxaban 15 Mg Tablet, 15 MG PO DAILY, (Reported) Tramadol HCl 50 Mg Tablet, 50 MG PO Q4H PRN for PAIN-MODERATE, (Reported) Patient Home Medication List Home Medication List Reviewed: Yes Constitutional: No chills, No diaphoresis, No fever, No malaise; weakness EENTM: No eye pain, No tearing Respiratory: No cough, No phlegm, No short of breath Cardiovascular: No chest pain, No edema Gastrointestinal: No abdominal pain, No constipation, No diarrhea, No nausea Genitourinary: No discharge, No dysuria Past Ebgtdbo-Fplout-Ymzruk Hx Patient Social History Alcohol Use: Denies Use Recreational Drug Use: No Smoking Status: Former Smoker Type Used: Cigars Former Smoker, Quit: Nov 11, 2017 2nd Hand Smoke Exposure: No Recent Hopitalizations: No Immunizations Up To Date Tetanus Booster (TDap): More than 5yrs Date of Pneumonia Vaccine: Jan 27, 2000 Seasonal Allergies Seasonal Allergies: No Past Medical History Surgeries: Yes CABG Respiratory: No Cardiac: Yes Atrial Fibrillation, High Cholesterol, Hypertension Neurological: Yes TIA Reproductive Disorders: No Sexually Transmitted Disease: No HIV/AIDS: No Genitourinary: No Gastrointestinal: No Musculoskeletal: Yes Arthritis Endocrine: No HEENT: No Hearing Impairment: Denies Cancer: No Psychosocial: No Integumentary: No Blood Disorders: No Family Medical History Patient reports no known family medical history. No Pertinent Family Hx Physical Exam Vital Signs Vital Signs - First Documented 12/31/17 13:00 O2 Flow Rate 3.00 Capillary Refill : Height, Weight, BMI Height: 5'1.00" Weight: 124lbs. 2.0oz. 56.558019xl; 23.3 BMI Method:Estimated General Appearance: WD/WN, no apparent distress HEENT: PERRL/EOMI, pharynx normal Neck: non-tender, full range of motion, normal inspection Cardiovascular: normal peripheral pulses, regular rate, rhythm Respiratory: chest non-tender, lungs clear, normal breath sounds, no respiratory distress, no accessory muscle use Gastrointestinal: normal bowel sounds, non tender, soft Legs: bilateral leg limited range of motion, bilateral leg pain, bilateral leg soft tissue tenderness, bilateral leg swelling, bilateral leg other (arterial insufficiency wounds) Knees: left knee joint effusion Neurologic/Tendon: normal sensation, normal motor functions, normal tendon functions, responds to pain, no evidence tendon injury Neurologic/Psychiatric: alert, normal mood/affect, oriented x 3 Progress/Results/Core Measures Results/Orders Lab Results Laboratory Tests Test 12/31/17 11:35 Range/Units White Blood Count 10.6 4.3-11.0 10^3/uL Red Blood Count 4.47 4.35-5.85 10^6/uL Hemoglobin 14.1 11.5-16.0 G/DL Hematocrit 43 35-52 % Mean Corpuscular Volume 97 80-99 FL Mean Corpuscular Hemoglobin 32 25-34 PG Mean Corpuscular Hemoglobin Concent 33 32-36 G/DL Red Cell Distribution Width 18.0 H 10.0-14.5 % Platelet Count 321 130-400 10^3/uL Mean Platelet Volume 11.1 H 7.4-10.4 FL Neutrophils (%) (Auto) 72 42-75 % Lymphocytes (%) (Auto) 18 12-44 % Monocytes (%) (Auto) 9 0-12 % Eosinophils (%) (Auto) 1 0-10 % Basophils (%) (Auto) 0 0-10 % Neutrophils # (Auto) 7.6 1.8-7.8 X 10^3 Lymphocytes # (Auto) 1.9 1.0-4.0 X 10^3 Monocytes # (Auto) 1.0 0.0-1.0 X 10^3 Eosinophils # (Auto) 0.1 0.0-0.3 10^3/uL Basophils # (Auto) 0.0 0.0-0.1 10^3/uL Prothrombin Time 18.5 H 12.2-14.7 SEC INR Comment 1.5 H 0.8-1.4 Activated Partial Thromboplast Time 31 24-35 SEC Sodium Level 141 135-145 MMOL/L Potassium Level 4.1 3.6-5.0 MMOL/L Chloride Level 108 H 98-107 MMOL/L Carbon Dioxide Level 24 21-32 MMOL/L Anion Gap 9 5-14 MMOL/L Blood Urea Nitrogen 25 H 7-18 MG/DL Creatinine 0.81 0.60-1.30 MG/DL Estimat Glomerular Filtration Rate > 60 BUN/Creatinine Ratio 31 Glucose Level 100 70-105 MG/DL Lactic Acid Level 1.63 0.50-2.00 MMOL/L Calcium Level 9.1 8.5-10.1 MG/DL Total Bilirubin 0.8 0.1-1.0 MG/DL Aspartate Amino Transf (AST/SGOT) 34 5-34 U/L Alanine Aminotransferase (ALT/SGPT) 31 0-55 U/L Alkaline Phosphatase 140 H 40-136 U/L Total Protein 6.5 6.4-8.2 GM/DL Albumin 3.7 3.2-4.5 GM/DL My Orders Orders - TANGELA GARRISON Cbc With Automated Diff (12/31/17 11:) Comprehensive Metabolic Panel (12/31/17:) Blood Culture (12/31/17:) Sputum Culture (12/31/17:) Urinalysis (12/31/17) Urine Culture (12/31/17) Protime With Inr (12/31/17:) Partial Thromboplastin Time (12/31/17:) Chest 1 View, Ap/Pa Only (12/31/17 11:) Acetaminophen Tablet (Tylenol Tablet) (12/31/17 11:30) Saline Lock/Iv-Start (12/31/17 11:) Saline Lock/Iv-Start (12/31/17 11:) Vital Signs Adult Sepsis Patie Q15M (12/31/17 11:27) O2 (12/31/17:) Remove Rings In Anticipation O (12/31/17 11:) Lactic Acid Analyzer (12/31/17 11:) Ns Iv 1000 Ml (Sodium Chloride 0.9%) (12/31/17 11:27) Vancomycin Injection (Vancomycin Injecti (12/31/17 11:30) Fentanyl Injection (Sublimaze Injection (12/31/17 11:45) Foot, Bilateral, 3 View (12/31/17 11:27) Medications Given in ED Current Medications Medications Dose Ordered Sig/Alicia Route Start Time Stop Time Status Last Admin Dose Admin Acetaminophen 1,000 mg ONCE PRN PO 12/31/17 11:30 12/31/17 11:59 DC 12/31/17 11:56 1,000 MG Fentanyl Citrate 50 mcg ONCE ONCE IVP 12/31/17 11:45 12/31/17 11:46 DC 12/31/17 11:53 50 MCG Vancomycin HCl 1000 mg/Sodium Chloride 250 ml @ 250 mls/hr ONCE ONCE IV 12/31/17 11:30 12/31/17 12:29 DC 12/31/17 11:54 250 MLS/HR Vital Signs/I&O 12/31/17 12/31/17 12/31/17 11:24 11:24 13:00 Temp 97.7 97.7 Pulse 111 111 Resp 16 16 B/P (MAP) 130/97 (108) 130/97 (108) Pulse Ox 98 98 92 O2 Delivery Room Air Room Air Nasal Cannula O2 Flow Rate 3.00 Progress Progress Note : Time: 11:47 Progress Note Concern for posterior versus cellulitis versus just claudication pain. She does have tachycardia and I'll presume there will be an elevated white count so were going to do a septic workup and start her on vancomycin. She's not presently on antibiotics. The jorge of her problem seems to be arterial insufficiency. We' ll give her 50 of fentanyl to start for her pain as well as some Tylenol and will reassess. Reviewing the previous November 21 Angiocath looks like some balloon angioplasty was performed and there is some improvement after the intervention. We discussed this with cardiology and he thinks her some more that could be done to help her and did note at the conclusion that if she has continued worsening disease he wouldn't attempt further intervention. Diagnostic Imaging Diagonstic Imaging: Xray Plain Films/CT/US/NM/MRI: chest (1v) Comments No acute cardiopulmonary processes noted. VIA [facility]. [place], [place] NAME: [facility]IC [facility] REC#: [id number] PT STATUS: REG ER : 1930 PHYSICIAN: TANGELA GARRISON MD ADMIT DATE: 12/31/17/ER Draft Date of Exam:12/31/17 CHEST 1 VIEW, AP/PA ONLY INDICATION: Bilateral lower extremity wounds. TIME OF EXAM: 12:34 PM Comparison is made with prior chest from 12/09/2017. FINDINGS: The heart size is stable. Nodular density in the left lung base is stable. No infiltrate is seen. No effusion or pneumothorax is identified. IMPRESSION: Stable chest. No acute abnormality is detected. Dictated on workstation # [id number] Dict: 12/31/17 1247 Trans: 12/31/17 1250 [id number] Interpreted by: MATT MOJICA MD Electronically signed by: Reviewed: Reviewed by Me Diagonstic Imaging: Xray Plain Films/CT/US/NM/MRI: other (bilateral feet) Comments Bilateral feet without osteolytic lesions or free air in the soft tissues. [facility]. [place], [place] NAME: [facility] REC#: [id number] PT STATUS: REG ER : 1930 PHYSICIAN: TANGELA GARRISON MD ADMIT DATE: 12/31/17/ER Draft Date of Exam:12/31/17 FOOT, BILATERAL, 3 VIEW INDICATION: Bilateral leg pain and lower extremity wounds. TIME OF EXAM: 12:36 PM Multiple views of bilateral feet were obtained. FINDINGS: There is generalized osteopenia of bilateral feet. There are degenerative changes at the first MTP joints bilaterally. Metatarsals are intact. No periosteal reaction or stress reaction is seen. The phalanges appear intact. No definite bony destructive changes are seen. No soft tissue gas is identified. There are large plantar calcaneal spurs bilaterally. No fractures are seen IMPRESSION: Chronic changes bilaterally. No acute abnormality is detected. Dictated on workstation # [id number] Dict: 12/31/17 1313 Trans: 12/31/17 1319 [facility] [id number] Interpreted by: MATT MOJICA MD Electronically signed by: Reviewed: Reviewed by Me Departure Communication (Admissions) Time/Spoke to Admitting Phy: 13:29 Discussed case lab imaging findings with Dr. Johnson and she agrees to accept the patient. Time/Spoke to Consulting Phy: 13:00 Discussed case lab imaging and records with Dr. Henderson and he thinks her something can be done for her and would like the patient admitted. Impression Primary Impression: Peripheral vascular disease Additional Impressions: Arterial insufficiency with ischemic ulcer Acute leg pain Qualified Codes: M79.606 - Pain in leg, unspecified Disposition: ADMITTED INPATIENT Condition: Stable Admissions Decision to Admit Reason: Admit from ER (General) Decision to Admit/Date: Dec 31, 2017 Time/Decision to Admit Time: 13:30 Departure-Patient Inst. Referrals: ROMELIA BALES MD (PCP/Family) Primary Care Physician TANGELA GARRISON Dec 31, 2017 11:45
[2017-12-31 11:53] LABS: BASOPHILS % (AUTO) 0 % (0-10); EOSINOPHILS # (AUTO) 0.1 10^3/uL (0.0-0.3); EOSINOPHILS % (AUTO) 1 % (0-10); HEMATOCRIT 43 % (35-52); HEMOGLOBIN 14.1 G/DL (11.5-16.0); LYMPHOCYTES # (AUTO) 1.9 X 10^3 (1.0-4.0); LYMPHOCYTES % (AUTO) 18 % (12-44); MEAN CORPUSCULAR HEMOGLOBIN 32 PG (25-34); MEAN CORPUSCULAR HGB CONC 33 G/DL (32-36); MEAN CORPUSCULAR VOLUME 97 FL (80-99); MEAN PLATELET VOLUME 11.1 FL (7.4-10.4); MONOCYTES % (AUTO) 9 % (0-12); NEUTROPHILS # (AUTO) 7.6 X 10^3 (1.8-7.8); NEUTROPHILS % (AUTO) 72 % (42-75); PLATELET COUNT 321 10^3/uL (130-400); RED BLOOD COUNT 4.47 10^6/uL (4.35-5.85); WHITE BLOOD COUNT 10.6 10^3/uL (4.3-11.0)
[2017-12-31 12:05] LABS: INR 1.5 (0.8-1.4); PROTHROMBIN TIME PATIENT 18.5 SEC (12.2-14.7)
[2017-12-31 12:12] LABS: ALANINE AMINOTRANSFERASE 31 U/L (0-55); ALBUMIN 3.7 GM/DL (3.2-4.5); ALKALINE PHOSPHATASE 140 U/L (40-136); BILIRUBIN,TOTAL 0.8 MG/DL (0.1-1.0); BUN/CREATININE RATIO 31; CALCIUM 9.1 MG/DL (8.5-10.1); CARBON DIOXIDE 24 MMOL/L (21-32); CHLORIDE 108 MMOL/L (98-107); CREATININE SERUM 0.81 MG/DL (0.60-1.30); GFR ESTIMATED > 60; GLUCOSE 100 MG/DL (70-105); POTASSIUM 4.1 MMOL/L (3.6-5.0); SODIUM 141 MMOL/L (135-145); TOTAL PROTEIN 6.5 GM/DL (6.4-8.2)
--- NOTE | 2017-12-31 12:51 | Diagnostic Imaging Report ---
INDICATION: Bilateral lower extremity wounds. TIME OF EXAM: 12:34 PM Comparison is made with prior chest from 12/09/2017. FINDINGS: The heart size is stable. Nodular density in the left lung base is stable. No infiltrate is seen. No effusion or pneumothorax is identified. IMPRESSION: Stable chest. No acute abnormality is detected. Dictated by: Dictated on workstation # [id number]
--- NOTE | 2017-12-31 13:19 | Diagnostic Imaging Report ---
INDICATION: Bilateral leg pain and lower extremity wounds. TIME OF EXAM: 12:36 PM Multiple views of bilateral feet were obtained. FINDINGS: There is generalized osteopenia of bilateral feet. There are degenerative changes at the first MTP joints bilaterally. Metatarsals are intact. No periosteal reaction or stress reaction is seen. The phalanges appear intact. No definite bony destructive changes are seen. No soft tissue gas is identified. There are large plantar calcaneal spurs bilaterally. No fractures are seen IMPRESSION: Chronic changes bilaterally. No acute abnormality is detected. Dictated by: Dictated on workstation # [id number]
[2017-12-31 14:29] VITALS: BP 115/53
[2017-12-31] MEDS ORDERED: fentaNYL INJECTION 100 MCG/2 ML AMP IV PRN (15:15)
[2017-12-31] MEDS ORDERED: ONDANSETRON 4 MG/2 ML (SDV) Z0FRAN IV PRN (15:15)
[2017-12-31] MEDS: fentaNYL INJECTION 100 MCG/2 ML AMP IV PRN ×2 (15:49→18:38)
[2017-12-31] MEDS ORDERED: PRD20T PO (15:58)
[2017-12-31] MEDS ORDERED: POVI3780 TP (15:58)
[2017-12-31] MEDS ORDERED: RIVAROXABAN 15 MG TABLET (XARELTO) PO SCH (17:00)
--- NOTE | 2017-12-31 17:15 | Consultation-Cardiology ---
HPI-Cardiology Cardiology Consultation Date of Consultation 12/31/17 Date of Admission Time Seen by Provider: 17:09 Indication: Ischemic foot HPI 87 years old lady with extensive cardiovascular history, history of multiple cardiac stents, extensive peripheral arterial disease and ischemic legs. Patient has been having ulcers on her legs since September 2017 which has been worsening. She underwent angiogram in October 2017 which showed extensive disease , underwent complex balloon angioplasty to the right SFA with good results, start to have healing then became worse. She has ulcers on her left leg which has been painful. Known to have occluded SFA bilaterally. Came into the hospital with significant leg pain. Was admitted for further management up on my evaluation patient was laying down comfortably in bed, still having pain, her legs are warm. Denied any chest pain. Discussed the management plan I recommended evaluation with vascular surgeon at this time. Home Medications & Allergies Allergies: Coded Allergies: codeine (Unverified Allergy, Mild, sore throat, 12/09/17) levofloxacin (Verified Allergy, Unknown, 12/09/17) sulfamethoxazole (Verified Adverse Reaction, Unknown, RASH, 11/02/17) trimethoprim (Verified Adverse Reaction, Unknown, RASH, 11/02/17) Home Medication List Reviewed: Yes CHM-Qjqjpa-Yaxjah Hx Patient Social History Marital Status: Alcohol Use: Denies Use Recreational Drug Use: No Smoking Status: Current Someday Smoker Type Used: Cigars 2nd Hand Smoke Exposure: No Recent Foreign Travel: No Recent Infectious Disease Expo: No Recent Hopitalizations: No Physical Abuse Screen: No Sexual Abuse: No Immunizations Up To Date Tetanus Booster (TDap): More than 5yrs Date of Pneumonia Vaccine: Jan 27, 2000 Past Medical History Past medical history as discussed below Family Medical History Significant Family History: No Pertinent Family Hx Family Medical Hx Noncontributory to her current condition Family History: Patient reports no known family medical history. Constitutional: see HPI, malaise, weakness EENTM: see HPI, no symptoms reported Respiratory: see HPI; No cough, No dyspnea on exertion, No hemoptysis, No orthopnea, No phlegm, No short of breath, No stridor, No wheezing, No other Cardiovascular: see HPI; No chest pain; edema; No Hx of Intervention, No palpitations, No syncope, No vascular heart diseas, No other Gastrointestinal: no symptoms reported, see HPI Genitourinary: no symptoms reported, see HPI Musculoskeletal: see HPI, back pain, joint pain, muscle pain, muscle weakness Skin: see HPI, change in color, lesions (Multiple ulceration and gangrenous tissue on the leg) Psychiatric/Neurological: No Symptoms Reported, See HPI Reviewed Test Results Reviewed Test Results Lab Laboratory Tests Test 12/31/17 11:35 Range/Units White Blood Count 10.6 4.3-11.0 10^3/uL Red Blood Count 4.47 4.35-5.85 10^6/uL Hemoglobin 14.1 11.5-16.0 G/DL Hematocrit 43 35-52 % Mean Corpuscular Volume 97 80-99 FL Mean Corpuscular Hemoglobin 32 25-34 PG Mean Corpuscular Hemoglobin Concent 33 32-36 G/DL Red Cell Distribution Width 18.0 H 10.0-14.5 % Platelet Count 321 130-400 10^3/uL Mean Platelet Volume 11.1 H 7.4-10.4 FL Neutrophils (%) (Auto) 72 42-75 % Lymphocytes (%) (Auto) 18 12-44 % Monocytes (%) (Auto) 9 0-12 % Eosinophils (%) (Auto) 1 0-10 % Basophils (%) (Auto) 0 0-10 % Neutrophils # (Auto) 7.6 1.8-7.8 X 10^3 Lymphocytes # (Auto) 1.9 1.0-4.0 X 10^3 Monocytes # (Auto) 1.0 0.0-1.0 X 10^3 Eosinophils # (Auto) 0.1 0.0-0.3 10^3/uL Basophils # (Auto) 0.0 0.0-0.1 10^3/uL Prothrombin Time 18.5 H 12.2-14.7 SEC INR Comment 1.5 H 0.8-1.4 Activated Partial Thromboplast Time 31 24-35 SEC Sodium Level 141 135-145 MMOL/L Potassium Level 4.1 3.6-5.0 MMOL/L Chloride Level 108 H 98-107 MMOL/L Carbon Dioxide Level 24 21-32 MMOL/L Anion Gap 9 5-14 MMOL/L Blood Urea Nitrogen 25 H 7-18 MG/DL Creatinine 0.81 0.60-1.30 MG/DL Estimat Glomerular Filtration Rate > 60 BUN/Creatinine Ratio 31 Glucose Level 100 70-105 MG/DL Lactic Acid Level 1.63 0.50-2.00 MMOL/L Calcium Level 9.1 8.5-10.1 MG/DL Total Bilirubin 0.8 0.1-1.0 MG/DL Aspartate Amino Transf (AST/SGOT) 34 5-34 U/L Alanine Aminotransferase (ALT/SGPT) 31 0-55 U/L Alkaline Phosphatase 140 H 40-136 U/L Total Protein 6.5 6.4-8.2 GM/DL Albumin 3.7 3.2-4.5 GM/DL Physical Exam Vital Signs Vital Signs - First Documented 12/31/17 13:00 O2 Flow Rate 3.00 Capillary Refill : Less Than 3 Seconds Height, Weight, BMI Height: 5'1.00" Weight: 143lbs. 0.0oz. 64.404437hl; 27.0 BMI Method:Stated General Appearance: WD/WN, Moderate Distress Eyes: Bilateral Eye Normal Inspection, Bilateral Eye PERRL, Bilateral Eye EOMI HEENT: PERRL/EOMI, TMs Normal, Normal ENT Inspection, Pharynx Normal Neck: Full Range of Motion, Normal Inspection, Non Tender, Supple, Carotid Bruit Respiratory: Chest Non Tender, Lungs Clear, Normal Breath Sounds, No Accessory Muscle Use, No Respiratory Distress Cardiovascular: Regular Rate, Rhythm, Systolic Murmur, Gallop/S3, Other ( Multiple ulcers on both feet with gangrenous tissue on the back of the right foot) Gastrointestinal: Normal Bowel Sounds, No Organomegaly, No Pulsatile Mass, Non Tender, Soft Back: Normal Inspection, No CVA Tenderness, No Vertebral Tenderness Extremity: Other (Edema and necrosis in addition to multiple ulcers on both lower extremities) Neurologic/Psychiatric: Alert, Oriented x3, No Motor/Sensory Deficits, Normal Mood/Affect Skin: Normal Color, Warm/Dry Lymphatic: No Adenopathy A/P-Cardiology Admission Diagnosis Peripheral arterial disease Ischemic foot Coronary artery disease Paroxysmal atrial fibrillation Hypertension Hyperlipidemia Assessment/Plan Peripheral arterial disease, multiple ischemic ulcers on her lower extremities, gangrenous tissue on the right foot. Painful ulcers on the left leg. Had peripheral angiogram in October 2017 Successful balloon angioplasty for totally occluded stent in the right SFA with complex intervention with multiple balloon used with good results. Mild disease at the popliteal artery Successful balloon angioplasty to the right posterior tibial artery with good results Severe disease at the anterior tibial artery on the right, moderate disease at the peroneal artery Severe disease below the knee at the left lower extremity, total occlusion of the left SFA reconstructed by collaterals Small abdominal aortic aneurysm with patent right iliac stent The ulcer on the right leg started to improve after the intervention, recently started to deteriorate again, the left leg has significant ulceration that became worse and painful recently. I discussed with Dr. Garza, he recommended starting heparin, patient received her Xarelto does earlier today. I will arrange for the transfer Coronary artery disease, history of 3 stents in the past. Was seen in the past by Dr. Adams Paroxysmal atrial fibrillation, maintained on Xarelto 15 mg daily. Rate is controlled. Hypertension, continue to monitor blood pressure, continue current medication Hyperlipidemia, monitor lipids History of tobaccoism, stopped smoking in the past. Clinical Quality Measures DVT/VTE Risk/Contraindication: Risk Factor Score Per Nursin RFS Level Per Nursing on Admit: 3=High JUAN JOSE BILLINGS MD Dec 31, 2017 17:15
--- NOTE | 2017-12-31 17:33 | Cardiology Discharge Summary ---
Diagnosis/Chief Complaint Date of Admission Dec 31, 2017 at 13:25 Date of Discharge December 31, 2017 Admission Diagnosis Peripheral arterial disease Ischemic foot Coronary artery disease Paroxysmal atrial fibrillation Hypertension Hyperlipidemia Discharge Diagnosis Peripheral arterial disease Ischemic foot Coronary artery disease Paroxysmal atrial fibrillation Hypertension Hyperlipidemia Chief Complaint/HPI Chief Complaint/HPI 87 years old lady with extensive cardiovascular history, history of multiple cardiac stents, extensive peripheral arterial disease and ischemic legs. Patient has been having ulcers on her legs since September 2017 which has been worsening. She underwent angiogram in October 2017 which showed extensive disease , underwent complex balloon angioplasty to the right SFA with good results, start to have healing then became worse. She has ulcers on her left leg which has been painful. Known to have occluded SFA bilaterally. Came into the hospital with significant leg pain. Was admitted for further management up on my evaluation patient was laying down comfortably in bed, still having pain, her legs are warm. Denied any chest pain. Discussed the management plan I recommended evaluation with vascular surgeon at this time. Discharge Summary Hospital Course Hospital Course Peripheral arterial disease, multiple ischemic ulcers on her lower extremities, gangrenous tissue on the right foot. Painful ulcers on the left leg. Had peripheral angiogram in October 2017 Successful balloon angioplasty for totally occluded stent in the right SFA with complex intervention with multiple balloon used with good results. Mild disease at the popliteal artery Successful balloon angioplasty to the right posterior tibial artery with good results Severe disease at the anterior tibial artery on the right, moderate disease at the peroneal artery Severe disease below the knee at the left lower extremity, total occlusion of the left SFA reconstructed by collaterals Small abdominal aortic aneurysm with patent right iliac stent The ulcer on the right leg started to improve after the intervention, recently started to deteriorate again, the left leg has significant ulceration that became worse and painful recently. I discussed with Dr. Garza, he recommended starting heparin, patient received her Xarelto does earlier today. I will arrange for the transfer Coronary artery disease, history of 3 stents in the past. Was seen in the past by Dr. Adams Paroxysmal atrial fibrillation, maintained on Xarelto 15 mg daily. Rate is controlled. Hypertension, continue to monitor blood pressure, continue current medication Hyperlipidemia, monitor lipids History of tobaccoism, stopped smoking in the past. Labs Laboratory Tests 12/31/17 11:35: Red Cell Distribution Width 18.0H, Mean Platelet Volume 11.1H, Prothrombin Time 18.5H, INR Comment 1.5H, Chloride Level 108H, Blood Urea Nitrogen 25H, Alkaline Phosphatase 140H Procedures None. Discharge Physical Examination Allergies: Coded Allergies: codeine (Unverified Allergy, Mild, sore throat, 12/09/17) levofloxacin (Verified Allergy, Unknown, 12/09/17) sulfamethoxazole (Verified Adverse Reaction, Unknown, RASH, 11/02/17) trimethoprim (Verified Adverse Reaction, Unknown, RASH, 11/02/17) Vitals & I&Os Vital Signs Date Time Temp Pulse Resp B/P (MAP) Pulse Ox O2 Delivery O2 Flow Rate FiO2 12/31/17 16:08 91 Room Air 12/31/17 13:00 3.00 12/31/17 11:24 97.7 111 16 130/97 (108) General Appearance: Alert, Oriented X3, Cooperative HEENT: Atraumatic, PERRLA Respiratory: Clear to Auscultation Cardiovascular: Regular Rate, Normal S1, Normal S2 Abdominal: Normal Bowel Sounds, Soft Extremities: No Clubbing Skin: Other (Multiple ischemic ulcers on both legs) Discharge Home Medications Reviewed and agree with Discharge Medication list on patient's Discharge Instruction sheet Instructions to Patient/Family Please see electronic discharge instructions given to patient. Clinical Quality Measures Admission Status Admission Status: Observation DVT/VTE Risk/Contraindication: Risk Factor Score Per Nursin RFS Level Per Nursing on Admit: 3=High JUAN JOSE BILLINGS MD Dec 31, 2017 17:33
[2017-12-31] MEDS ORDERED: ATORVASTATIN 40 MG (LIPITOR) TABLET PO SCH (21:00)
--- OUTSIDE RECORDS SUMMARY | 2017-12-31 22:04 | XMS REPORT | Clinical Summary ---
Author Author [facility] Organization [facility] Address Unknown Phone Unavailable Care Team Providers Care Printing Estimator Name Role Phone Sheldon Spann MD Unavailable Krish Saba MD PCP Source Comments Some departments are not documenting in the electronic medical record. If you do not see the information that you expected, contact Release of Information in the Health Information Management department at [phone] for further assistance in locating additional records.[facility] Allergies Active Allergy Reactions Severity [...]
--- OUTSIDE RECORDS SUMMARY | 2017-12-31 22:05 | XMS REPORT | Continuity of Care Document ---
Author Author [facility] Organization [facility] Address Unknown Phone Unavailable Allergies Active Description Code Type Severity Reaction Onset Reported/Identified Relationship to Patient Clinical Status Yes sulfamethoxazole [id number] Drug Allergy Unknown RASH 11/02/2017 Yes trimethoprim [id number] Drug Allergy Unknown RASH 11/02/2017 Yes codeine [id number] Drug Allergy Mild sore throat 12/09/2017 Yes levofloxacin [id number] Drug Allergy Unknown N/A 12/09/2017 Medications There is no data. 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 04/26/1599 KATERIN GARZA MD Ot L97.812 NON-PRS [...] BALES MD Ot 414.01 CORONARY ATHEROSCLEROSIS OF [place] CORON 03/24/2013 ROMELIA BALES MD Ot 435.9 [...] TOXIC EFFECT OF TOBACCO CIGARETTES, SELF 09/24/2017 ROMELIA BALES MD Ot I48.91 UNSPECIFIED ATRIAL FIBRILLATION 09/27/2017 ROMELIA BALES MD Ot I48.91 UNSPECIFIED ATRIAL FIBRILLATION 10/02/2017 ROMELIA BALES MD Ot I48.91 UNSPECIFIED ATRIAL FIBRILLATION 11/02/2017 PRABHA ROGERS MD, Ot E78.00 PURE HYPERCHOLESTEROLEMIA, UNSPECIFIED 11/02/2017 PRABHA ROGERS MD Ot F17.200 NICOTINE DEPENDENCE, UNSPECIFIED, UNCOMP 11/02/2017 PRABHA ROGERS MD, Ot 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 11/02/2017 PRABHA ROGERS MD Ot I10 ESSENTIAL (PRIMARY) HYPERTENSION 11/02/2017 PRABHA ROGERS MD, Ot I48.91 UNSPECIFIED ATRIAL FIBRILLATION 11/02/2017 PRABHA ROGERS MD Ot I87.8 OTHER SPECIFIED DISORDERS OF VEINS 11/02/2017 PRABHA ROGERS MD Ot M79.671 PAIN IN RIGHT FOOT 11/02/2017 PRABHA ROGERS MD Ot Z79.82 BRAKE COUPLER DINKEY (CURRENT) USE OF ASPIRIN 11/02/2017 PRABHA ROGERS [...] SPECIFIED DISORDERS OF VEINS 11/05/2017 PRABHA ROGERS MD, Ot M79.671 PAIN IN RIGHT FOOT 11/05/2017 PRABHA ROGERS MD Ot Z79.82 BRAKE COUPLER DINKEY (CURRENT) USE OF ASPIRIN 11/05/2017 PRABHA ROGERS MD Ot Z86.73 PRSNL HX OF TIA (TIA), AND CEREB INFRC W 11/05/2017 PRABHA ROGERS MD Ot Z88.1 ALLERGY STATUS TO OTHER ANTIBIOTIC AGENT 11/05/2017 PRABHA ROGERS MD Ot Z88.2 ALLERGY STATUS TO SULFONAMIDES STATUS 11/05/2017 PRABHA ROGERS MD Ot Z88.5 ALLERGY STATUS TO NARCOTIC AGENT STATUS 11/05/2017 PRABHA ROGERS MD Ot Z95.1 PRESENCE OF AORTOCORONARY BYPASS GRAFT 11/09/2017 JENNA FRASER SAND SLINGER OPERATOR Ot I87.333 CHRONIC VENOUS HTN W ULCER AND INFLAM OF 11/09/2017 JENNA FRASER SAND SLINGER OPERATOR Ot L97.212 NON-PRESSURE CHRONIC ULCER OF RIGHT CALF 11/09/2017 JENNA FRASER SAND SLINGER OPERATOR Ot L97.512 NON-PRS CHRONIC ULCER OTH PRT RIGHT FOOT 11/09/2017 JENNA FRASER SAND SLINGER OPERATOR Ot L97.522 NON-PRS CHRONIC ULCER OTH PRT LEFT FOOT 11/09/2017 JENNA FRASER SAND SLINGER OPERATOR Ot I87.333 CHRONIC VENOUS HTN W ULCER AND INFLAM OF 11/09/2017 JENNA FRASER SAND SLINGER OPERATOR Ot L97.212 NON-PRESSURE CHRONIC ULCER OF RIGHT CALF 11/09/2017 JENNA FRASER SAND SLINGER OPERATOR Ot L97.512 NON-PRS CHRONIC ULCER OTH PRT RIGHT FOOT 11/09/2017 JENNA FRASER SAND SLINGER OPERATOR Ot L97.522 NON-PRS CHRONIC ULCER OTH PRT LEFT FOOT 11/19/2017 JENNA FRASER SAND SLINGER OPERATOR Ot I87.333 CHRONIC VENOUS HTN W ULCER AND INFLAM OF 11/19/2017 JENNA FRASER SAND SLINGER OPERATOR Ot L97.212 NON-PRESSURE CHRONIC ULCER OF RIGHT CALF 11/19/2017 JENNA FRASER SAND SLINGER OPERATOR Ot L97.512 NON-PRS CHRONIC ULCER OTH PRT RIGHT FOOT 11/19/2017 JENNA FRASER SAND SLINGER OPERATOR Ot L97.522 NON-PRS CHRONIC ULCER OTH PRT LEFT FOOT 11/22/2017 JUAN JOSE BILLINGS MD Ot E78.5 HYPERLIPIDEMIA, UNSPECIFIED 11/22/2017 JUAN JOSE BILLINGS MD Ot I10 ESSENTIAL (PRIMARY) HYPERTENSION 11/22/2017 JUAN JOSE BILLINGS MD Ot I25.10 ATHSCL HEART DISEASE OF [place] CORONARY 11/22/2017 JUAN JOSE BILLINGS MD Ot I48.1 PERSISTENT ATRIAL FIBRILLATION 11/22/2017 JUAN JOSE BILLINGS MD Ot I70.235 ATHSCL [place] ARTERIES OF RIGHT LEG W UL 11/22/2017 [...] MD Ot I25.10 ATHSCL HEART DISEASE OF [place] CORONARY 11/22/2017 JUAN JOSE BILLINGS MD Ot I48.1 PERSISTENT ATRIAL FIBRILLATION 11/22/2017 JUAN JOSE BILLINGS MD Ot I70.235 ATHSCL [place] ARTERIES OF RIGHT LEG W UL 11/22/2017 [...] MD Ot I25.10 ATHSCL HEART DISEASE OF [place] CORONARY 11/27/2017 JUAN JOSE BILLINGS MD Ot I48.1 PERSISTENT ATRIAL FIBRILLATION 11/27/2017 JUAN JOSE BILLINGS MD Ot I70.235 ATHSCL [place] ARTERIES OF RIGHT LEG W UL 11/27/2017 [...] MD Ot I25.10 ATHSCL HEART DISEASE OF [place] CORONARY 11/27/2017 JUAN JOSE BILLINGS MD Ot I48.1 PERSISTENT ATRIAL FIBRILLATION 11/27/2017 JUAN JOSE BILLINGS MD Ot I70.235 ATHSCL [place] ARTERIES OF RIGHT LEG W UL 11/27/2017 JUAN JOSE BILLINGS MD, Ot L97.519 NON-PRS CHRONIC ULCER OTH PRT RIGHT FOOT 11/27/2017 JUAN JOSE BILLINGS MD Ot Z86.73 PRSNL HX OF TIA (TIA), AND CEREB INFRC W 11/27/2017 JUAN JOSE BILLINGS MD Ot Z87.891 PERSONAL HISTORY OF NICOTINE DEPENDENCE 11/30/2017 JENNA FRASER APRN Ot I70.232 ATHSCL [place] ARTERIES OF RIGHT LEG W UL 11/30/2017 JENNA FRASER APRN Ot I70.235 ATHSCL [place] ARTERIES OF RIGHT LEG W UL 11/30/2017 JENNA FRASER APRN Ot I70.245 ATHSCL [place] ARTERIES OF LEFT LEG W ULC 11/30/2017 JENNA FRASER APRN Ot I87.333 CHRONIC VENOUS HTN W ULCER AND INFLAM OF 11/30/2017 JENNA FRASER APRN Ot L97.212 NON-PRESSURE CHRONIC ULCER OF RIGHT CALF 11/30/2017 JENNA FRASER APRN Ot L97.512 NON-PRS CHRONIC ULCER OTH PRT RIGHT FOOT 11/30/2017 JENNA FRASER APRN Ot L97.522 NON-PRS CHRONIC ULCER OTH PRT LEFT FOOT 12/10/2017 JENNA FRASER APRN Ot I70.232 ATHSCL [place] ARTERIES OF RIGHT LEG W UL 12/10/2017 JENNA FRASER APRN Ot I70.235 ATHSCL [place] ARTERIES OF RIGHT LEG W UL 12/10/2017 JENNA FRASER APRN Ot I70.245 ATHSCL [place] ARTERIES OF LEFT LEG W [facility] 12/10/2017 JENNA FRASER APRN Ot I87.333 CHRONIC VENOUS HTN W ULCER AND INFLAM OF 12/10/2017 JENNA FRASER APRN Ot L97.212 NON-PRESSURE CHRONIC ULCER OF RIGHT CALF 12/10/2017 JENNA FRASER APRN Ot L97.512 NON-PRS CHRONIC ULCER OTH PRT RIGHT FOOT 12/10/2017 JENNA FRASER APRN Ot L97.522 NON-PRS CHRONIC ULCER OTH PRT LEFT FOOT 12/10/2017 ALIDA HEADLEY MD Ot I70.232 ATHSCL [place] ARTERIES OF RIGHT LEG W 12/10/2017 ALIDA HEADLEY MD Ot I70.235 ATHSCL [place] ARTERIES OF RIGHT LEG W 12/10/2017 ALIDA HEADLEY MD Ot I70.245 ATHSCL [place] ARTERIES OF LEFT LEG W [facility] 12/10/2017 ALIDA HEADLEY MD Ot I87.333 CHRONIC VENOUS HTN W ULCER AND INFLAM OF 12/10/2017 ALIDA HEADLEY MD Ot L97.212 NON-PRESSURE CHRONIC ULCER OF RIGHT CALF 12/10/2017 ALIDA HEADLEY MD Ot L97.512 NON-PRS CHRONIC ULCER OTH PRT RIGHT FOOT 12/10/2017 ALIDA HEADLEY MD Ot L97.522 NON-PRS CHRONIC ULCER OTH PRT LEFT FOOT 12/12/2017 CHAZ HARDY MD Ot A41.9 SEPSIS, UNSPECIFIED ORGANISM 12/12/2017 CHAZ HARDY MD Ot E78.00 PURE HYPERCHOLESTEROLEMIA, UNSPECIFIED 12/12/2017 CHAZ HARDY MD Ot I10 ESSENTIAL (PRIMARY) HYPERTENSION 12/12/2017 CHAZ HARDY MD Ot I25.10 ATHSCL HEART DISEASE OF [place] CORONARY 12/12/2017 CHAZ HARDY MD Ot I48.0 PAROXYSMAL ATRIAL FIBRILLATION 12/12/2017 CHAZ HARDY MD Ot I70.235 ATHSCL [place] ARTERIES OF RIGHT LEG W 12/12/2017 CHAZ HARDY MD, Ot L97.319 NON-PRESSURE CHRONIC ULCER OF RIGHT ANKL 12/12/2017 CHAZ HARDY MD, Ot L97.419 NON-PRS CHR ULCER OF RIGHT HEEL AND MIDF 12/12/2017 CHAZ HARDY MD, Ot L97.519 NON-PRS CHRONIC ULCER OTH PRT RIGHT FOOT 12/12/2017 CHAZ HARDY MD, Ot M25.571 PAIN IN RIGHT ANKLE AND JOINTS OF RIGHT 12/12/2017 CHAZ HARDY MD, Ot N39.0 URINARY TRACT INFECTION, SITE NOT SPECIF 12/12/2017 CHAZ HARDY MD, Ot 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 12/12/2017 CHAZ HARDY MD, Ot R91.8 OTHER NONSPECIFIC ABNORMAL FINDING OF [place] 12/12/2017 CHAZ HARDY MD, Ot W18.09XA STRIKING AGAINST OTH OBJECT W SUBSEQUENT 12/12/2017 CHAZ HARDY MD Ot Y92.013 BEDROOM OF SINGLE-FAMILY (PRIVATE) HOUSE 12/12/2017 CHAZ HARDY MD, Ot Z87.891 PERSONAL HISTORY OF NICOTINE DEPENDENCE 12/12/2017 CHAZ HARDY MD, Ot Z95.1 PRESENCE OF AORTOCORONARY BYPASS GRAFT 12/12/2017 ALIDA HEADLEY MD Ot I70.232 ATHSCL [place] ARTERIES OF RIGHT LEG W UL 12/12/2017 ALIDA HEADLEY MD Ot I70.235 ATHSCL [place] ARTERIES OF RIGHT LEG W UL 12/12/2017 ALIDA HEADLEY MD Ot I70.245 ATHSCL [place] ARTERIES OF LEFT LEG W ULC 12/12/2017 ALIDA HEADLEY MD Ot I87.333 CHRONIC VENOUS HTN W ULCER AND INFLAM OF 12/12/2017 ALIDA HEADLEY MD Ot L97.212 NON-PRESSURE CHRONIC ULCER OF RIGHT CALF 12/12/2017 ALIDA HEADLEY MD Ot L97.512 NON-PRS CHRONIC ULCER OTH PRT RIGHT FOOT 12/12/2017 ALIDA HEADLEY MD Ot L97.522 NON-PRS CHRONIC ULCER OTH PRT LEFT FOOT 12/12/2017 CHAZ HARDY MD, Ot A41.9 SEPSIS, UNSPECIFIED ORGANISM 12/12/2017 CHAZ HARDY MD, Ot E78.00 PURE HYPERCHOLESTEROLEMIA, UNSPECIFIED 12/12/2017 CHAZ HARDY MD, Ot I10 ESSENTIAL (PRIMARY) HYPERTENSION 12/12/2017 CHAZ HARDY MD, Ot I25.10 ATHSCL HEART DISEASE OF [place] CORONARY 12/12/2017 CHAZ HARDY MD, Ot I48.0 PAROXYSMAL ATRIAL FIBRILLATION 12/12/2017 CHAZ HARDY MD Ot I70.235 ATHSCL [place] ARTERIES OF RIGHT LEG W UL 12/12/2017 CHAZ HARDY MD Ot L97.319 NON-PRESSURE CHRONIC ULCER OF RIGHT ANKL 12/12/2017 CHAZ HARDY MD, Ot L97.419 NON-PRS CHR ULCER OF RIGHT HEEL AND MIDF 12/12/2017 CHAZ HARDY MD, Ot L97.519 NON-PRS CHRONIC ULCER OTH PRT RIGHT FOOT 12/12/2017 CHAZ HARDY MD, Ot M25.571 PAIN IN RIGHT ANKLE AND JOINTS OF RIGHT 12/12/2017 CHAZ HARDY MD, Ot N39.0 URINARY TRACT INFECTION, SITE NOT SPECIF 12/12/2017 CHAZ HARDY MD, Ot 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 12/12/2017 CHAZ HRADY MD Ot R91.8 OTHER NONSPECIFIC ABNORMAL FINDING OF [place] 12/12/2017 CHAZ HARDY MD Ot W18.09XA STRIKING AGAINST OTH OBJECT W SUBSEQUENT 12/12/2017 CHAZ HARDY MD Ot Y92.013 BEDROOM OF SINGLE-FAMILY (PRIVATE) HOUSE 12/12/2017 CHAZ HARDY MD, Ot Z87.891 PERSONAL HISTORY OF NICOTINE DEPENDENCE 12/12/2017 CHAZ HARDY MD Ot Z95.1 PRESENCE OF AORTOCORONARY BYPASS GRAFT 12/14/2017 ALIDA HEADLEY MD Ot I70.232 ATHSCL [place] ARTERIES OF RIGHT LEG W UL 12/14/2017 ALIDA HEADLEY MD Ot I70.235 ATHSCL [place] ARTERIES OF RIGHT LEG W UL 12/14/2017 ALIDA HEADLEY MD Ot I70.245 ATHSCL [place] ARTERIES OF LEFT LEG W ULC 12/14/2017 ALIDA HEADLEY MD Ot I87.333 CHRONIC VENOUS HTN W ULCER AND INFLAM OF 12/14/2017 ALIDA HEADLEY MD Ot L97.212 NON-PRESSURE CHRONIC ULCER OF RIGHT CALF 12/14/2017 ALIDA HEADLEY MD, Ot L97.512 NON-PRS CHRONIC ULCER OTH PRT RIGHT FOOT 12/14/2017 ALIDA HEADLEY MD, Ot L97.522 NON-PRS CHRONIC ULCER OTH PRT LEFT FOOT 12/17/2017 ALIDA HEADLEY MD, Ot I70.232 ATHSCL [place] ARTERIES OF RIGHT LEG W UL 12/17/2017 ALIDA HEADLEY MD, Ot I70.235 ATHSCL [place] ARTERIES OF RIGHT LEG W UL 12/17/2017 ALIDA HEADLEY MD, Ot I70.245 ATHSCL [place] ARTERIES OF LEFT LEG W ULC 12/17/2017 ALIDA HEADLEY MD, Ot I87.333 CHRONIC VENOUS HTN W ULCER AND INFLAM OF 12/17/2017 ALIDA HEADLEY MD, Ot L97.212 NON-PRESSURE CHRONIC ULCER OF RIGHT CALF 12/17/2017 ALIDA HEADLEY MD, Ot L97.512 NON-PRS CHRONIC ULCER OTH PRT RIGHT FOOT 12/17/2017 ALIDA HEADLEY MD, Ot L97.522 NON-PRS CHRONIC ULCER OTH PRT [...] STAIN RESULT MODERATE # GRAM POSITIVE COCCI NRG Bacteria identification in wound by culture - 11/02/17 10:50 Bacteria identification in wound by culture [id number] NRG FREE TEXT EXTERNAL PLEASE NOTIFY MICRO AT EXT 141 IF A NRG QUANTITY OF GROWTH Moderate Growth NRG FREE TEXT ENTRY 2 SENSITIVITY IS REQUESTED ON THIS NRG FREE TEXT ENTRY 3 ISOLATE OF COAG NEGATIVE STAPH NRG Bacterial blood culture - 11/02/17 10:50 Bacterial blood culture NG NRG Bacterial susceptibility panel - 11/02/17 10:50 [...] susceptibility test by minimum inhibitory concentration 2 NR Bacterial blood culture - 11/02/17 11:10 Bacterial blood culture NG [facility] Automated blood complete blood count (hemogram) panel [...] sediment by light microscopy 10- 25 NRG Bacterial urine culture - 12/09/17 14:09 Bacterial urine culture SEE COMMEN NRG COLONY COUNT . NRG Complete blood count (CBC) with automated [...] plasma albumin measurement (mass/volume) 3.4 g/dL 3.2-4.5 Complete blood count (CBC) with automated white blood cell (WBC) differential - 12/12/17 07:01 Blood leukocytes automated count (number/volume) 11.1 10*3/uL 4.3-11.0 Blood erythrocytes automated count (number/volume) 4.66 10*6/uL 4.35-5.85 Venous blood hemoglobin measurement (mass/volume) 15.0 g/dL 11.5-16.0 Blood hematocrit (volume fraction) 44 % 35-52 Automated erythrocyte mean corpuscular volume 95 [foz_us] 80-99 Automated erythrocyte mean corpuscular hemoglobin (mass per erythrocyte) 32 pg 25-34 Automated erythrocyte mean corpuscular hemoglobin concentration measurement ( mass/volume) 34 g/dL 32-36 Automated erythrocyte distribution width ratio 16.9 % 10.0-14.5 Automated blood platelet count (count/volume) 271 10*3/uL 130-400 Automated blood platelet mean volume measurement 11.5 [foz_us] 7.4-10.4 Automated blood neutrophils/100 leukocytes 85 % 42-75 Automated blood lymphocytes/100 leukocytes 8 % 12-44 Blood monocytes/100 leukocytes 6 % 0-12 Automated blood eosinophils/100 leukocytes 0 % 0-10 Automated blood basophils/100 leukocytes 0 % 0-10 Blood neutrophils automated count (number/volume) 9.5 10*3 1.8-7.8 Blood lymphocytes automated count (number/volume) 0.9 10*3 1.0-4.0 Blood monocytes automated count (number/volume) 0.7 10*3 0.0-1.0 Automated eosinophil count 0.0 10*3/uL 0.0-0.3 Automated blood basophil count (count/volume) 0.0 10*3/uL 0.0-0.1 Whole blood basic metabolic panel - 12/12/17 07:01 Serum or plasma sodium measurement (moles/volume) 141 mmol/L 135-145 Serum or plasma potassium measurement (moles/volume) 3.8 mmol/L 3.6-5.0 Serum or plasma chloride measurement (moles/volume) 106 mmol/L 98-107 Carbon dioxide 24 mmol/L 21-32 Serum or plasma anion gap determination (moles/volume) 11 mmol/L 5-14 Serum or plasma urea nitrogen measurement (mass/volume) 29 mg/dL 7-18 Serum or plasma creatinine measurement (mass/volume) 0.78 mg/dL 0.60-1.30 Serum or plasma urea nitrogen/creatinine mass ratio 37 NRG Serum or plasma creatinine measurement with calculation of estimated glomerular filtration rate > NRG Serum or plasma glucose measurement (mass/volume) 145 mg/dL 70-105 Serum or plasma calcium measurement (mass/volume) 8.8 mg/dL 8.5-10.1 Serum or plasma uric acid measurement (mass/volume) - 12/12/17 07:01 Serum or plasma uric acid measurement (mass/volume) 8.8 mg/dL 2.6-7.2 Encounters ACCT No. Visit Date/Time Discharge Status Pt. Type Provider Facility Loc./Unit Complaint [id number] 12/20/2017 10:27:00 12/20/2017 23:59:59 CLS Outpatient JENNA FRASER APRN [id number] 12/13/2017 09:41:00 12/13/2017 23:59:59 CLS Outpatient ALIDA HEADLEY MD [id number] 12/09/2017 16:25:00 12/12/2017 15:50:00 DIS Inpatient CHAZ HARDY MD [facility] 4TH HALLUCINATIONS,UTI [id number] 12/06/2017 09:17:00 12/06/2017 23:59:59 CLS Outpatient ALIDA HEADLEY MD [facility] [id number] 11/29/2017 09:20:00 11/29/2017 23:59:59 CLS Outpatient JENNA FRASER APRN [facility] [id number] 11/21/2017 08:44:00 11/22/2017 12:25:00 DIS Outpatient AWA MOORE, JUAN JOSE Hirsch [facility] CATH ABN EKG,PAD,A FIB,HTN [id number] 11/08/2017 09:49:00 11/08/2017 23:59:59 CLS Outpatient BRIA JENNA Real KAYA [facility] WOUND[facility] [id number] 11/02/2017 10:21:00 11/02/2017 13:24:00 DIS Emergency PRABHA ROGERS MD [facility] ER RT FOOT PAIN [id number] 09/21/2017 10:25:00 09/21/2017 23:59:59 CLS Outpatient ROMELIA BALES MD [facility] CARD NEW ONSET AFIB [id number] 12/30/2015 08:09:00 02/02/2016 16:00:00 DIS Outpatient KATERIN GARZA MD [facility] WOUND[facility] [id number] 12/09/2015 08:07:00 12/22/2015 00:01:00 DIS Outpatient KATERIN GARZA MD [facility] [id number] 09/30/2015 11:20:00 09/30/2015 23:59:59 CLS Outpatient KATERIN GARZA MD [facility] RAD CHRONIC ULCER RT LOWER EXR RT LEG [id number] 09/24/2015 08:47:00 09/24/2015 23:59:59 CLS Outpatient KATERIN GARZA MD [facility] LAB CHRONIC ULCER RT LOWER EXR RT LEG [id number] 07/23/2015 10:40:00 07/23/2015 23:59:59 CLS Outpatient ROMELIA BALES MD [facility] RAD LEFT CHOLESTEROL EMBOLI TO RETINAL ARTERY [id number] 03/23/2013 07:31:00 03/24/2013 12:00:00 DIS Inpatient ROMELIA BALES MD [facility] 4TH TIA [id number] 07/23/2015 10:40:00 Document Registration [id number] 07/23/2015 10:39:00 Document Registration [id number] 05/07/2012 11:27:00 Document Registration [id number] 07/26/2011 08:10:00 Document Registration [id number] 06/20/2011 12:30:00 Document Registration [id number] 05/30/2011 05:36:00 Document Registration [id number] 05/26/2011 10:50:00 Document Registration [id number] 05/15/2011 16:57:00 Document Registration [id number] 05/10/2011 00:00:00 Document Registration [id number] 05/02/2011 05:37:00 Document Registration [id number] 05/01/2011 11:01:00 Document Registration [id number] 04/17/2011 14:00:00 Document Registration [id number] 04/14/2011 16:20:00 Document Registration [id number] 03/20/2011 15:40:00 Document Registration [id number] 03/14/2011 05:38:00 Document Registration [id number] 03/09/2011 13:34:00 Document Registration [id number] 03/09/2011 08:00:00 Document Registration [id number] 01/11/2011 05:45:00 Document Registration [id number] 01/06/2011 10:24:00 Document Registration [id number] 12/15/2010 09:44:00 Document Registration [id number] 09/13/2010 09:15:00 Document Registration [id number] 09/07/2010 05:48:00 Document Registration [id number] 09/06/2010 06:44:00 Document Registration [id number] 09/02/2010 08:47:00 Document Registration [id number] 08/23/2010 10:13:00 Document Registration [id number] 07/05/2010 13:59:00 Document Registration [id number] 06/04/2010 11:04:00 Document Registration [id number] 05/24/2010 10:02:00 Document Registration [id number] 04/12/2010 07:11:00 Document Registration [id number] 03/14/2010 09:24:00 Document Registration
--- OUTSIDE RECORDS SUMMARY | 2017-12-31 22:18 | XMS REPORT | Clinical Summary ---
Author Author [facility] Organization [facility] Address Unknown Phone Unavailable Care Team Providers Care Wall Taper Name Role Phone Sheldon Spann MD Unavailable Krish Saba MD PCP Source Comments Some departments are not documenting in the electronic medical record. If you do not see the information that you expected, contact Release of Information in the Health Information Management department at [phone] for further assistance in locating additional records.[facility] Allergies Active Allergy Reactions Severity Noted Date [...]
--- OUTSIDE RECORDS SUMMARY | 2017-12-31 22:20 | XMS REPORT | Continuity of Care Document ---
Author Author [facility] Organization [facility] Address Unknown Phone Unavailable Allergies Active Description Code Type Severity Reaction Onset Reported/Identified Relationship to Patient Clinical Status Yes sulfamethoxazole [id number] Drug Allergy Unknown RASH 11/02/2017 Yes trimethoprim [id number] Drug Allergy Unknown RASH 11/02/2017 Yes codeine [id number] Drug Allergy Mild sore throat 12/09/2017 Yes levofloxacin [id number] Drug Allergy Unknown N/A 12/09/2017 Medications There is no data. 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 [...] BALES MD Ot 414.01 CORONARY ATHEROSCLEROSIS OF [place] CORON 03/24/2013 ROMELIA BALES MD Ot 435.9 [...] 362.31 07/23/2015 Ot 433.30 08/12/2015 AMAIRANI MOORE, ROEMLIA Chairez Ot I65.23 09/27/2015 KATERIN GARZA MD [...] OF RIGHT LEG W ULCER OTH 10/04/2015 AKTERIN GARZA MD Ot L97.812 NON-PRS CHRONIC ULCER [...] OF RIGHT LEG W ULCER OTH 12/30/2015 KATREIN GARZA MD Ot L97.812 NON-PRS CHRONIC ULCER [...] TOXIC EFFECT OF TOBACCO CIGARETTES, SELF 09/24/2017 ORMELIA BALES MD Ot I48.91 UNSPECIFIED ATRIAL FIBRILLATION [...] FOOT 11/02/2017 PRABHA ROGERS MD Ot Z79.82 FISHER PURSE SEINE (CURRENT) USE OF ASPIRIN 11/02/2017 PRABHA ROGERS [...] FOOT 11/05/2017 PRABHA ROGERS MD Ot Z79.82 FISHER PURSE SEINE (CURRENT) USE OF ASPIRIN 11/05/2017 PRABHA ROGERS [...] OF AORTOCORONARY BYPASS GRAFT 11/09/2017 JENNA FRASER JOURNEYMAN PIPE FITTER Ot I87.333 CHRONIC VENOUS HTN W ULCER AND INFLAM OF 11/09/2017 JENNA FRASER JOURNEYMAN PIPE FITTER Ot L97.212 NON-PRESSURE CHRONIC ULCER OF RIGHT CALF 11/09/2017 JENNA FRASER JOURNEYMAN PIPE FITTER Ot L97.512 NON-PRS CHRONIC ULCER OTH PRT RIGHT FOOT 11/09/2017 JENNA FRASER JOURNEYMAN PIPE FITTER Ot L97.522 NON-PRS CHRONIC ULCER OTH PRT LEFT FOOT 11/09/2017 JENNA FRASER JOURNEYMAN PIPE FITTER Ot I87.333 CHRONIC VENOUS HTN W ULCER AND INFLAM OF 11/09/2017 JENNA FRASER JOURNEYMAN PIPE FITTER Ot L97.212 NON-PRESSURE CHRONIC ULCER OF RIGHT CALF 11/09/2017 JENNA FRASER JOURNEYMAN PIPE FITTER Ot L97.512 NON-PRS CHRONIC ULCER OTH PRT RIGHT FOOT 11/09/2017 JENNA FRASER JOURNEYMAN PIPE FITTER Ot L97.522 NON-PRS CHRONIC ULCER OTH PRT LEFT FOOT 11/19/2017 JENNA FRASER JOURNEYMAN PIPE FITTER Ot I87.333 CHRONIC VENOUS HTN W ULCER AND INFLAM OF 11/19/2017 JENNA FRASER JOURNEYMAN PIPE FITTER Ot L97.212 NON-PRESSURE CHRONIC ULCER OF RIGHT CALF 11/19/2017 JENNA FRASER JOURNEYMAN PIPE FITTER Ot L97.512 NON-PRS CHRONIC ULCER OTH PRT RIGHT FOOT 11/19/2017 JENNA FRASER JOURNEYMAN PIPE FITTER Ot L97.522 NON-PRS CHRONIC ULCER OTH PRT LEFT FOOT 11/22/2017 JUAN JOSE BILLINGS MD Ot E78.5 HYPERLIPIDEMIA, UNSPECIFIED 11/22/2017 JUAN JOSE BILLINGS MD Ot I10 ESSENTIAL (PRIMARY) HYPERTENSION 11/22/2017 JUAN JOSE BILLINGS MD Ot I25.10 ATHSCL HEART DISEASE OF [place] CORONARY 11/22/2017 JUAN JOSE BILLINGS MD Ot I48.1 PERSISTENT ATRIAL FIBRILLATION 11/22/2017 JUAN JOSE BILLINGS MD Ot I70.235 ATHSCL [place] ARTERIES OF RIGHT LEG W UL 11/22/2017 [...] MD Ot I25.10 ATHSCL HEART DISEASE OF [place] CORONARY 11/22/2017 JUAN JOSE BILLINGS MD Ot I48.1 PERSISTENT ATRIAL FIBRILLATION 11/22/2017 JUAN JOSE BILLINGS MD Ot I70.235 ATHSCL [place] ARTERIES OF RIGHT LEG W UL 11/22/2017 [...] MD Ot I25.10 ATHSCL HEART DISEASE OF [place] CORONARY 11/27/2017 JUAN JOSE BILLINGS MD Ot I48.1 PERSISTENT ATRIAL FIBRILLATION 11/27/2017 JUAN JOSE BILLINGS MD Ot I70.235 ATHSCL [place] ARTERIES OF RIGHT LEG W UL 11/27/2017 [...] MD Ot I25.10 ATHSCL HEART DISEASE OF [place] CORONARY 11/27/2017 JUAN JOSE BILLINGS MD Ot I48.1 PERSISTENT ATRIAL FIBRILLATION 11/27/2017 JUAN JOSE BILLINGS MD Ot I70.235 ATHSCL [place] ARTERIES OF RIGHT LEG W UL 11/27/2017 JUAN JOSE BILLINGS MD, Ot L97.519 NON-PRS CHRONIC ULCER OTH PRT RIGHT FOOT 11/27/2017 JUAN JOSE BILLINGS MD Ot Z86.73 PRSNL HX OF TIA (TIA), AND CEREB INFRC W 11/27/2017 JUAN JOSE BILLINGS MD Ot Z87.891 PERSONAL HISTORY OF NICOTINE DEPENDENCE 11/30/2017 JENNA FRASER APRN Ot I70.232 ATHSCL [place] ARTERIES OF RIGHT LEG W UL 11/30/2017 JENNA FRASER APRN Ot I70.235 ATHSCL [place] ARTERIES OF RIGHT LEG W UL 11/30/2017 JENNA FRASER APRN Ot I70.245 ATHSCL [place] ARTERIES OF LEFT LEG W ULC 11/30/2017 [...] 12/10/2017 JENNA FRASER APRN Ot I70.232 ATHSCL [place] ARTERIES OF RIGHT LEG W UL 12/10/2017 JENNA FRASER APRN Ot I70.235 ATHSCL [place] ARTERIES OF RIGHT LEG W UL 12/10/2017 JENNA FRASER APRN Ot I70.245 ATHSCL [place] ARTERIES OF [place] LEG W [place] [...] 12/10/2017 ALIDA HEADLEY MD Ot I70.232 ATHSCL [place] ARTERIES OF RIGHT LEG W 12/10/2017 ALIDA HEADLEY MD Ot I70.235 ATHSCL [place] ARTERIES OF RIGHT LEG W 12/10/2017 ALIDA HEADLEY MD Ot I70.245 ATHSCL [place] ARTERIES OF [place] LEG W [place] [...] MD Ot I25.10 ATHSCL HEART DISEASE OF [place] CORONARY 12/12/2017 CHAZ HARDY MD Ot I48.0 PAROXYSMAL ATRIAL FIBRILLATION 12/12/2017 CHAZ HARDY MD Ot I70.235 ATHSCL [place] ARTERIES OF RIGHT LEG W 12/12/2017 CHAZ [...] 12/12/2017 ALIDA HEADLEY MD Ot I70.232 ATHSCL [place] ARTERIES OF RIGHT LEG W UL 12/12/2017 ALIDA HEADLEY MD Ot I70.235 ATHSCL [place] ARTERIES OF RIGHT LEG W UL 12/12/2017 ALIDA HEADLEY MD Ot I70.245 ATHSCL [place] ARTERIES OF LEFT LEG W ULC 12/12/2017 [...] MD, Ot I25.10 ATHSCL HEART DISEASE OF [place] CORONARY 12/12/2017 CHAZ HARDY MD, Ot I48.0 PAROXYSMAL ATRIAL FIBRILLATION 12/12/2017 CHAZ HARDY MD Ot I70.235 ATHSCL [place] ARTERIES OF RIGHT LEG W UL 12/12/2017 [...] ADULT FAILURE TO THRIVE 12/12/2017 CHAZ HARDY MD Ot R91.8 OTHER NONSPECIFIC ABNORMAL FINDING OF [place] 12/12/2017 CHAZ HARDY MD Ot W18.09XA STRIKING AGAINST OTH OBJECT W SUBSEQUENT 12/12/2017 CHAZ HARDY MD Ot Y92.013 BEDROOM OF SINGLE-FAMILY (PRIVATE) HOUSE 12/12/2017 CHAZ HARDY MD, Ot Z87.891 PERSONAL HISTORY OF NICOTINE DEPENDENCE 12/12/2017 CHAZ HARDY MD Ot Z95.1 PRESENCE OF AORTOCORONARY BYPASS GRAFT 12/14/2017 ALIDA HEADLEY MD Ot I70.232 ATHSCL [place] ARTERIES OF RIGHT LEG W UL 12/14/2017 ALIDA HEADLEY MD Ot I70.235 ATHSCL [place] ARTERIES OF RIGHT LEG W UL 12/14/2017 ALIDA HEADLEY MD Ot I70.245 ATHSCL [place] ARTERIES OF LEFT LEG W ULC 12/14/2017 [...] 12/17/2017 ALIDA HEADLEY MD, Ot I70.232 ATHSCL [place] ARTERIES OF RIGHT LEG W UL 12/17/2017 ALIDA HEADLEY MD, Ot I70.235 ATHSCL [place] ARTERIES OF RIGHT LEG W UL 12/17/2017 ALIDA HEADLEY MD, Ot I70.245 ATHSCL [place] ARTERIES OF LEFT LEG W ULC 12/17/2017 [...] 10:50 Bacteria identification in wound by culture [id number] NRG FREE TEXT EXTERNAL PLEASE NOTIFY MICRO [...] - 11/02/17 11:10 Bacterial blood culture NG [facility] Automated blood complete blood count (hemogram) panel [...] Status Pt. Type Provider Facility Loc./Unit Complaint [id number] 12/20/2017 10:27:00 12/20/2017 23:59:59 CLS Outpatient JENNA FRASER APRN [facility] [id number] 12/13/2017 09:41:00 12/13/2017 23:59:59 CLS Outpatient ALIDA HEADLEY MD [facility] [id number] 12/09/2017 16:25:00 12/12/2017 15:50:00 DIS Inpatient CHAZ HARDY MD [facility] 4TH HALLUCINATIONS,UTI [id number] 12/06/2017 09:17:00 12/06/2017 23:59:59 CLS Outpatient ALIDA HEADLEY MD [facility] [id number] 11/29/2017 09:20:00 11/29/2017 23:59:59 CLS Outpatient JENNA FRASER APRN [facility] [id number] 11/21/2017 08:44:00 11/22/2017 12:25:00 DIS Outpatient AWA MOORE, JUAN JOSE Hirsch [facility] CATH ABN EKG,PAD,A FIB,HTN [id number] 11/08/2017 09:49:00 11/08/2017 23:59:59 CLS Outpatient BRIA JENNA Real KAYA [facility] [id number] 11/02/2017 10:21:00 11/02/2017 13:24:00 DIS Emergency PRABHA ROGERS MD [facility] ER RT FOOT PAIN [id number] 09/21/2017 10:25:00 09/21/2017 23:59:59 CLS Outpatient RMOELIA BALES MD [facility] CARD NEW ONSET AFIB [id number] 12/30/2015 08:09:00 02/02/2016 16:00:00 DIS Outpatient KATERIN GARZA MD [facility] [id number] 12/09/2015 08:07:00 12/22/2015 00:01:00 DIS Outpatient KATERIN GARZA MD [facility] [id number] 09/30/2015 11:20:00 09/30/2015 23:59:59 CLS Outpatient KATERIN GARZA MD [facility] RAD CHRONIC ULCER RT LOWER EXR RT LEG [id number] 09/24/2015 08:47:00 09/24/2015 23:59:59 CLS Outpatient KATERIN GARZA MD [facility] LAB CHRONIC ULCER RT LOWER EXR RT LEG [id number] 07/23/2015 10:40:00 07/23/2015 23:59:59 CLS Outpatient ROMELIA BALES MD [facility] RAD LEFT CHOLESTEROL EMBOLI TO RETINAL ARTERY [id number] 03/23/2013 07:31:00 03/24/2013 12:00:00 DIS Inpatient ROMELIA BALES MD [facility] 4TH TIA [id number] 07/23/2015 10:40:00 Document Registration [id number] 07/23/2015 10:39:00 Document Registration [id number] 05/07/2012 11:27:00 Document Registration [id number] 07/26/2011 08:10:00 Document Registration [id number] 06/20/2011 12:30:00 Document Registration [id number] 05/30/2011 05:36:00 Document Registration [id number] 05/26/2011 10:50:00 Document Registration [id number] 05/15/2011 16:57:00 Document Registration [id number] 05/10/2011 00:00:00 Document Registration [id number] 05/02/2011 05:37:00 Document Registration [id number] 05/01/2011 11:01:00 Document Registration [id number] 04/17/2011 14:00:00 Document Registration [id number] 04/14/2011 16:20:00 Document Registration [id number] 03/20/2011 15:40:00 Document Registration [id number] 03/14/2011 05:38:00 Document Registration [id number] 03/09/2011 13:34:00 Document Registration [id number] 03/09/2011 08:00:00 Document Registration [id number] 01/11/2011 05:45:00 Document Registration [id number] 01/06/2011 10:24:00 Document Registration [id number] 12/15/2010 09:44:00 Document Registration [id number] 09/13/2010 09:15:00 Document Registration [id number] 09/07/2010 05:48:00 Document Registration [id number] 09/06/2010 06:44:00 Document Registration [id number] 09/02/2010 08:47:00 Document Registration [id number] 08/23/2010 10:13:00 Document Registration [id number] 07/05/2010 13:59:00 Document Registration [id number] 06/04/2010 11:04:00 Document Registration [id number] 05/24/2010 10:02:00 Document Registration [id number] 04/12/2010 07:11:00 Document Registration [id number] 03/14/2010 09:24:00 Document Registration
[2018-01-01] MEDS ORDERED: PANTOPRAZOLE 40 MG (PROTONIX) TAB PO SCH (07:00)
[2018-01-01] MEDS ORDERED: DILTIAZEM 180 MG (CARDIZEM CD) CAP PO SCH (09:00)
[2018-01-01] MEDS ORDERED: CLOPIDOGREL 75 MG (PLAVIX) TABLET PO SCH (09:00)
== END 2017-12-31 20:31 | disposition short-term general hospital (02) | DRG 301 ==
LOC: EDUNIT# 11:24 → ER 11:26 → 4TH 13:25
PROVIDERS: ADMIT Family Medicine; ATTEND Family Medicine
DX: I70.261 Atherosclerosis of native arteries of extremities with gangrene, right leg (principal); I70.248 Atherosclerosis of native arteries of left leg with ulceration of other part of lower leg; I25.10 Atherosclerotic heart disease of native coronary artery without angina pectoris; I48.0 Paroxysmal atrial fibrillation; I10 Essential (primary) hypertension; E78.5 Hyperlipidemia, unspecified; I71.4 Abdominal aortic aneurysm, without rupture; F17.210 Nicotine dependence, cigarettes, uncomplicated; Z95.5 Presence of coronary angioplasty implant and graft; Z95.1 Presence of aortocoronary bypass graft
CPT/HCPCS: 36415; 71045; 80053; 83605; 85025; 85610; 85730; 87040; 94760; 96374; 96375

== ENCOUNTER → 2018-01-10 | Outpatient (CLI) | payer MEDICARE ==
[~2018-01-10] MED LIST changes: +POVI3780 TP
== END ==
LOC: WOUNDCARE 09:21
PROVIDERS: ATTEND Nurse Practitioner
DX: L97.212 Non-pressure chronic ulcer of right calf with fat layer exposed (principal); L97.512 Non-pressure chronic ulcer of other part of right foot with fat layer exposed; L97.522 Non-pressure chronic ulcer of other part of left foot with fat layer exposed; I70.232 Atherosclerosis of native arteries of right leg with ulceration of calf; I70.235 Atherosclerosis of native arteries of right leg with ulceration of other part of foot; I70.245 Atherosclerosis of native arteries of left leg with ulceration of other part of foot; I87.333 Chronic venous hypertension (idiopathic) with ulcer and inflammation of bilateral lower extremity
CPT/HCPCS: 99215

== ENCOUNTER 2018-01-17 04:17 | Inpatient (IN) | payer MEDICARE ==
[~2018-01-17] VITALS: Ht 156.2 cm; Wt 60.4 kg
--- OUTSIDE RECORDS SUMMARY | 2018-01-17 04:22 | XMS REPORT | Clinical Summary ---
Author Author [facility] Organization [facility] Address Unknown Phone Unavailable Care Team Providers Care Virtual Recruiter Name Role Phone Sheldon Spann MD Unavailable Krish Saba MD PCP Source Comments Some departments are not documenting in the electronic medical record. If you do not see the information that you expected, contact Release of Information in the Health Information Management department at [phone] for further assistance in locating additional records.[facility] Allergies Active Allergy Reactions Severity Noted [...]
--- OUTSIDE RECORDS SUMMARY | 2018-01-17 04:24 | XMS REPORT | Continuity of Care Document ---
Author Author [facility] Organization [facility] Address Unknown Phone Unavailable Allergies Active Description Code Type Severity Reaction Onset Reported/Identified Relationship to Patient Clinical Status Yes sulfamethoxazole [id number] Drug Allergy Unknown RASH 11/02/2017 Yes trimethoprim [id number] Drug Allergy Unknown RASH 11/02/2017 Yes codeine [id number] Drug Allergy Mild sore throat 12/09/2017 Yes levofloxacin [id number] Drug Allergy Unknown N/A 12/09/2017 Medications There [...] BALES MD Ot 414.01 CORONARY ATHEROSCLEROSIS OF [place] CORON 03/24/2013 ROMELIA BALES MD Ot 435.9 [...] FOOT 11/02/2017 PRABHA ROGERS MD Ot 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 11/02/2017 PRABHA ROGERS [...] ULCER AND INFLAM OF 11/09/2017 JENNA FRASER SEAFOOD CLERK Ot L97.212 NON-PRESSURE CHRONIC ULCER OF RIGHT CALF 11/09/2017 JENNA FRASER SEAFOOD CLERK Ot L97.512 NON-PRS CHRONIC ULCER OTH PRT RIGHT FOOT 11/09/2017 JENNA FRASER SEAFOOD CLERK Ot L97.522 NON-PRS CHRONIC ULCER OTH PRT LEFT FOOT 11/09/2017 JENNA FRASER APRN Ot I87.333 CHRONIC VENOUS HTN W ULCER AND INFLAM OF 11/09/2017 JENNA FRASER SEAFOOD CLERK Ot L97.212 NON-PRESSURE CHRONIC ULCER OF RIGHT CALF 11/09/2017 JENNA FRASER SEAFOOD CLERK Ot L97.512 NON-PRS CHRONIC ULCER OTH PRT RIGHT FOOT 11/09/2017 JENNA FRASER SEAFOOD CLERK Ot L97.522 NON-PRS CHRONIC ULCER OTH PRT LEFT FOOT 11/19/2017 JENNA FRASER SEAFOOD CLERK Ot I87.333 CHRONIC VENOUS HTN W ULCER AND INFLAM OF 11/19/2017 JENNA FRASER SEAFOOD CLERK Ot L97.212 NON-PRESSURE CHRONIC ULCER OF RIGHT CALF 11/19/2017 JENNA FRASER SEAFOOD CLERK Ot L97.512 NON-PRS CHRONIC ULCER OTH PRT RIGHT FOOT 11/19/2017 JENNA FRASER SEAFOOD CLERK Ot L97.522 NON-PRS CHRONIC ULCER OTH PRT LEFT FOOT 11/22/2017 JUA NJOSE BILLINGS MD Ot E78.5 HYPERLIPIDEMIA, UNSPECIFIED 11/22/2017 JUAN JOSE BILLINGS MD Ot I10 ESSENTIAL (PRIMARY) HYPERTENSION 11/22/2017 JUAN JOSE BILLINGS MD Ot I25.10 ATHSCL HEART DISEASE OF [place] CORONARY 11/22/2017 JUAN JOSE BILLINGS MD Ot I48.1 PERSISTENT ATRIAL FIBRILLATION 11/22/2017 JUAN JOSE BILLINGS MD Ot I70.235 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 11/22/2017 [...] MD Ot I25.10 ATHSCL HEART DISEASE OF [place] CORONARY 11/22/2017 JUAN JOSE BILLINGS MD Ot I48.1 PERSISTENT ATRIAL FIBRILLATION 11/22/2017 JUAN JOSE BILLINGS MD Ot I70.235 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 11/22/2017 [...] MD Ot I25.10 ATHSCL HEART DISEASE OF [place] CORONARY 11/27/2017 JUAN JOSE BILLINGS MD Ot I48.1 PERSISTENT ATRIAL FIBRILLATION 11/27/2017 JUAN JOSE BILLINGS MD Ot I70.235 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 11/27/2017 [...] MD Ot I25.10 ATHSCL HEART DISEASE OF [place] CORONARY 11/27/2017 JUAN JOSE BILLINGS MD Ot I48.1 PERSISTENT ATRIAL FIBRILLATION 11/27/2017 JUAN JOSE BILLINGS MD Ot I70.235 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 11/27/2017 JUAN JOSE BILLINGS MD Ot L97.519 NON-PRS CHRONIC ULCER OTH PRT RIGHT FOOT 11/27/2017 JUAN JOSE BILLINGS MD Ot Z86.73 PRSNL HX OF TIA (TIA), AND CEREB INFRC W 11/27/2017 JUAN JOSE BILLINGS MD Ot Z87.891 PERSONAL HISTORY OF NICOTINE DEPENDENCE 11/30/2017 JENNA FRASER SEAFOOD CLERK Ot I70.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 11/30/2017 JENNA FRASER SEAFOOD CLERK Ot I70.235 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 11/30/2017 JENNA FRASER APRN Ot I70.245 ATHSCL [place] ARTERIES OF LEFT LEG W ULC 11/30/2017 JENNA FRASER APRN Ot I87.333 CHRONIC VENOUS HTN W ULCER AND INFLAM OF 11/30/2017 JENNA FRASER SEAFOOD CLERK Ot L97.212 NON-PRESSURE CHRONIC ULCER OF RIGHT CALF 11/30/2017 JENNA FRASER SEAFOOD CLERK Ot L97.512 NON-PRS CHRONIC ULCER OTH PRT RIGHT FOOT 11/30/2017 JENNA FRASER SEAFOOD CLERK Ot L97.522 NON-PRS CHRONIC ULCER OTH PRT LEFT FOOT 12/10/2017 JENNA FRASER SEAFOOD CLERK Ot I70.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 12/10/2017 JENNA FRASER SEAFOOD CLERK Ot I70.235 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 12/10/2017 JENNA FRASER APRN Ot I70.245 ATHSCL [place] ARTERIES OF LEFT LEG W ULC 12/10/2017 JENNA FRASER APRN Ot I87.333 CHRONIC VENOUS HTN W ULCER AND INFLAM OF 12/10/2017 JENNA FRASER APRN Ot L97.212 NON-PRESSURE CHRONIC ULCER OF RIGHT CALF 12/10/2017 JENNA FRASER APRN Ot L97.512 NON-PRS CHRONIC ULCER OTH PRT RIGHT FOOT 12/10/2017 JENNA FRASER APRN Ot L97.522 NON-PRS CHRONIC ULCER OTH PRT LEFT FOOT 12/10/2017 ALIDA HEADLEY MD Ot I70.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 12/10/2017 ALIDA HEADLEY MD Ot I70.235 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 12/10/2017 ALIDA HEADLEY MD Ot I70.245 ATHSCL [place] ARTERIES OF LEFT LEG W C 12/10/2017 ALIDA HEADLEY MD Ot I87.333 CHRONIC [...] MD Ot I25.10 ATHSCL HEART DISEASE OF [place] CORONARY 12/12/2017 CHAZ HARDY MD Ot I48.0 PAROXYSMAL ATRIAL FIBRILLATION 12/12/2017 CHAZ HARDY MD Ot I70.235 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 12/12/2017 CHAZ HARDY MD, Ot L97.319 NON-PRESSURE CHRONIC ULCER OF RIGHT ANKL 12/12/2017 CHAZ HARDY MD Ot L97.419 NON-PRS CHR ULCER OF RIGHT HEEL AND MIDF 12/12/2017 CHAZ HARDY MD, Ot L97.519 NON-PRS CHRONIC ULCER OTH PRT RIGHT FOOT 12/12/2017 CHAZ HARDY MD, Ot M25.571 PAIN IN RIGHT ANKLE AND JOINTS OF RIGHT 12/12/2017 CHAZ HARDY MD, Ot N39.0 URINARY TRACT INFECTION, SITE NOT SPECIF 12/12/2017 CHAZ HARYD MD, Ot 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 12/12/2017 CHAZ HARDY MD Ot R91.8 OTHER NONSPECIFIC ABNORMAL FINDING OF [place] 12/12/2017 CHAZ HARDY MD Ot W18.09XA STRIKING AGAINST OTH OBJECT W SUBSEQUENT 12/12/2017 CHAZ HARDY MD, Ot Y92.013 BEDROOM OF SINGLE-FAMILY (PRIVATE) HOUSE 12/12/2017 CHAZ HARDY MD, Ot Z87.891 PERSONAL HISTORY OF NICOTINE DEPENDENCE 12/12/2017 CHAZ HARDY MD, Ot Z95.1 PRESENCE OF AORTOCORONARY BYPASS GRAFT 12/12/2017 ALIDA HEADLEY MD Ot I70.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 12/12/2017 ALIDA HEADLEY MD Ot I70.235 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 12/12/2017 ALIDA HEADLEY MD Ot I70.245 ATHSCL [place] ARTERIES OF LEFT LEG W ULC 12/12/2017 LAIDA HEADLEY MD Ot I87.333 CHRONIC VENOUS HTN [...] MD, Ot I25.10 ATHSCL HEART DISEASE OF [place] CORONARY 12/12/2017 CHAZ HARDY MD, Ot I48.0 PAROXYSMAL ATRIAL FIBRILLATION 12/12/2017 CHAZ HARDY MD, Ot I70.235 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 12/12/2017 CHAZ HARDY MD Ot L97.319 NON-PRESSURE CHRONIC ULCER OF RIGHT ANKL 12/12/2017 CHAZ HARDY MD, Ot L97.419 NON-PRS CHR ULCER OF RIGHT HEEL AND MIDF 12/12/2017 CHAZ HARDY MD, Ot L97.519 NON-PRS CHRONIC ULCER OTH PRT RIGHT FOOT 12/12/2017 CHAZ HARDY MD, Ot M25.571 PAIN IN RIGHT ANKLE AND JOINTS OF RIGHT 12/12/2017 CHZA HARYD MD, Ot N39.0 URINARY TRACT INFECTION, SITE NOT SPECIF 12/12/2017 CHAZ HARDY MD Ot 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 12/12/2017 [...] 12/14/2017 ALIDA HEADLEY MD Ot I70.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 12/14/2017 ALIDA HEADLEY MD Ot I70.235 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 12/14/2017 ALIDA HEADLEY MD Ot I70.245 ATHSCL [place] ARTERIES OF LEFT LEG W ULC 12/14/2017 ALIDA HEADLEY MD Ot I87.333 CHRONIC VENOUS HTN W ULCER AND INFLAM OF 12/14/2017 ALIDA HEADLEY MD Ot L97.212 NON-PRESSURE CHRONIC ULCER OF RIGHT CALF 12/14/2017 ALIDA HEADLEY MD Ot L97.512 NON-PRS CHRONIC ULCER OTH PRT RIGHT FOOT 12/14/2017 ALIDA HEADLEY MD Ot L97.522 NON-PRS CHRONIC ULCER OTH PRT LEFT FOOT 12/17/2017 ALIDA HEADLEY MD Ot I70.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 12/17/2017 ALIDA HEADLEY MD Ot I70.235 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 12/17/2017 ALIDA HEADLEY MD Ot I70.245 ATHSCL [place] ARTERIES OF LEFT LEG W ULC 12/17/2017 ALIDA HEADLEY MD Ot I87.333 CHRONIC VENOUS HTN W ULCER AND INFLAM OF 12/17/2017 ALIDA HEADLEY MD Ot L97.212 NON-PRESSURE CHRONIC ULCER OF RIGHT CALF 12/17/2017 ALIDA HEADLEY MD Ot L97.512 NON-PRS CHRONIC ULCER OTH PRT RIGHT FOOT 12/17/2017 ALIDA HEADLEY MD Ot L97.522 NON-PRS CHRONIC ULCER OTH PRT LEFT FOOT 12/24/2017 ROMELIA BALES MD Ot I65.23 OCCLUSION AND STENOSIS OF [place] 12/24/2017 KATERIN GARZA MD Ot 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 12/24/2017 KATERIN GARZA MD Ot L97.812 NON-PRS CHRONIC ULCER OTH PRT R LOW LEG 12/24/2017 KATERIN GARZA MD Ot T65.222A TOXIC EFFECT OF TOBACCO CIGARETTES, SELF 12/24/2017 KATERIN GARZA MD Ot 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 12/24/2017 KATERIN GARZA MD Ot L97.812 NON-PRS CHRONIC ULCER OTH PRT R LOW LEG 12/24/2017 KATERIN GARZA MD Ot T65.222A TOXIC EFFECT OF TOBACCO CIGARETTES, SELF 12/24/2017 ROMELIA BALES MD Ot I48.91 UNSPECIFIED ATRIAL FIBRILLATION 12/24/2017 JENNA FRASER APRN Ot I87.333 CHRONIC VENOUS HTN W ULCER AND INFLAM OF 12/24/2017 JENNA FRASER APRN Ot L97.212 NON-PRESSURE CHRONIC ULCER OF RIGHT CALF 12/24/2017 BRIA, JENNA R SEAFOOD CLERK Ot L97.512 NON-PRS CHRONIC ULCER OTH PRT RIGHT FOOT 12/24/2017 JENNA FRASER SEAFOOD CLERK Ot L97.522 NON-PRS CHRONIC ULCER OTH PRT LEFT FOOT 12/24/2017 JENNA FRASER SEAFOOD CLERK Ot I70.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 12/24/2017 JENNA FRASER SEAFOOD CLERK Ot I70.235 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 12/24/2017 JENNA FRASER SEAFOOD CLERK Ot I70.245 ATHSCL [place] ARTERIES OF LEFT LEG W ULC 12/24/2017 JENNA FRASER SEAFOOD CLERK Ot I87.333 CHRONIC VENOUS HTN W ULCER AND INFLAM OF 12/24/2017 JENNA FRASER SEAFOOD CLERK Ot L97.212 NON-PRESSURE CHRONIC ULCER OF RIGHT CALF 12/24/2017 JENNA FRASER SEAFOOD CLERK Ot L97.512 NON-PRS CHRONIC ULCER OTH PRT RIGHT FOOT 12/24/2017 JENNA FRASER SEAFOOD CLERK Ot L97.522 NON-PRS CHRONIC ULCER OTH PRT LEFT FOOT 12/24/2017 ALIDA HEADLEY MD Ot I70.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 12/24/2017 ALIDA HEADLEY MD Ot I70.235 ATHSCL [place] ARTERIES OF RIGHT LEG W 12/24/2017 ALIDA HEADLEY MD Ot I70.245 ATHSCL [place] ARTERIES OF LEFT LEG W [facility] 12/24/2017 ALIDA HEADLEY MD Ot I87.333 CHRONIC VENOUS HTN W ULCER AND INFLAM OF 12/24/2017 ALIDA HEADLEY MD Ot L97.212 NON-PRESSURE CHRONIC ULCER OF RIGHT CALF 12/24/2017 ALIDA HEADLEY MD Ot L97.512 NON-PRS CHRONIC ULCER OTH PRT RIGHT FOOT 12/24/2017 ALIDA HEADLEY MD Ot L97.522 NON-PRS CHRONIC ULCER OTH PRT LEFT FOOT 12/24/2017 ALIDA HEADLEY MD Ot I70.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 12/24/2017 ALIDA HEADLEY MD Ot I70.235 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 12/24/2017 ALIDA HEADLEY MD Ot I70.245 ATHSCL [place] ARTERIES OF LEFT LEG W [facility] 12/24/2017 ALIDA HEADLEY MD Ot I87.333 CHRONIC VENOUS HTN W ULCER AND INFLAM OF 12/24/2017 ALIDA HEADLEY MD Ot L97.212 NON-PRESSURE CHRONIC ULCER OF RIGHT CALF 12/24/2017 ALIDA HEADLEY MD Ot L97.512 NON-PRS CHRONIC ULCER OTH PRT RIGHT FOOT 12/24/2017 ALIDA HEADLEY MD Ot L97.522 NON-PRS CHRONIC ULCER OTH PRT LEFT FOOT 12/24/2017 JENNA FRASER SEAFOOD CLERK Ot I70.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 12/24/2017 JENNA FRASER SEAFOOD CLERK Ot I70.235 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 12/24/2017 JENNA FRASER SEAFOOD CLERK Ot I70.245 ATHSCL [place] ARTERIES OF LEFT LEG W C 12/24/2017 JENNA FRASER SEAFOOD CLERK Ot I87.333 CHRONIC VENOUS HTN W ULCER AND INFLAM OF 12/24/2017 JENNA FRASER SEAFOOD CLERK Ot L97.212 NON-PRESSURE CHRONIC ULCER OF RIGHT [place]F 12/24/2017 JENNA FRASER SEAFOOD CLERK Ot L97.512 NON-PRS CHRONIC ULCER OTH PRT RIGHT FOOT 12/24/2017 JENNA FRASER SEAFOOD CLERK Ot L97.522 NON-PRS CHRONIC ULCER OTH PRT [...] 10:50 Bacteria identification in wound by culture [id number] NRG FREE TEXT EXTERNAL PLEASE NOTIFY MICRO [...] uric acid measurement (mass/volume) 8.8 mg/dL 2.6-7.2 Complete blood count (CBC) with automated white blood cell (WBC) differential - 12/31/17 11:35 Blood leukocytes automated count (number/volume) 10.6 10*3/uL 4.3-11.0 Blood erythrocytes automated count (number/volume) 4.47 10*6/uL 4.35-5.85 Venous blood hemoglobin measurement (mass/volume) 14.1 g/dL 11.5-16.0 Blood hematocrit (volume fraction) 43 % 35-52 Automated erythrocyte mean corpuscular volume 97 [foz_us] 80-99 Automated erythrocyte mean corpuscular hemoglobin (mass per erythrocyte) 32 pg 25-34 Automated erythrocyte mean corpuscular hemoglobin concentration measurement ( mass/volume) 33 g/dL 32-36 Automated erythrocyte distribution width ratio 18.0 % 10.0-14.5 Automated blood platelet count (count/volume) 321 10*3/uL 130-400 Automated blood platelet mean volume measurement 11.1 [foz_us] 7.4-10.4 Automated blood neutrophils/100 leukocytes 72 % 42-75 Automated blood lymphocytes/100 leukocytes 18 % 12-44 Blood monocytes/100 leukocytes 9 % 0-12 Automated blood eosinophils/100 leukocytes 1 % 0-10 Automated blood basophils/100 leukocytes 0 % 0-10 Blood neutrophils automated count (number/volume) 7.6 10*3 1.8-7.8 Blood lymphocytes automated count (number/volume) 1.9 10*3 1.0-4.0 Blood monocytes automated count (number/volume) 1.0 10*3 0.0-1.0 Automated eosinophil count 0.1 10*3/uL 0.0-0.3 Automated blood basophil count (count/volume) 0.0 10*3/uL 0.0-0.1 Blood lactic acid measurement (moles/volume) - 12/31/17 11:35 Blood lactic acid measurement (moles/volume) 1.63 mmol/L 0.50-2.00 PT panel in platelet poor plasma by coagulation assay - 12/31/17 11:35 Prothrombin time (PT) in platelet poor plasma by coagulation assay 18.5 s 12.2-14.7 INR in platelet poor plasma or blood by coagulation assay 1.5 0.8-1.4 Activated partial thromboplastin time (aPTT) in platelet poor plasma bycoagulation assay - 12/31/17 11:35 Activated partial thromboplastin time (aPTT) in platelet poor plasma bycoagulation assay 31 s 24-35 Comprehensive metabolic panel - 12/31/17 11:35 Serum or plasma sodium measurement (moles/volume) 141 mmol/L 135-145 Serum or plasma potassium measurement (moles/volume) 4.1 mmol/L 3.6-5.0 Serum or plasma chloride measurement (moles/volume) 108 mmol/L 98-107 Carbon dioxide 24 mmol/L 21-32 Serum or plasma anion gap determination (moles/volume) 9 mmol/L 5-14 Serum or plasma urea nitrogen measurement (mass/volume) 25 mg/dL 7-18 Serum or plasma creatinine measurement (mass/volume) 0.81 mg/dL 0.60-1.30 Serum or plasma urea nitrogen/creatinine mass ratio 31 NRG Serum or plasma creatinine measurement with calculation of estimated glomerular filtration rate > NRG Serum or plasma glucose measurement (mass/volume) 100 mg/dL 70-105 Serum or plasma calcium measurement (mass/volume) 9.1 mg/dL 8.5-10.1 Serum or plasma total bilirubin measurement (mass/volume) 0.8 mg/dL 0.1-1.0 Serum or plasma alkaline phosphatase measurement (enzymatic activity/volume) 140 U/L 40-136 Serum or plasma aspartate aminotransferase measurement (enzymatic activity/ volume) 34 U/L 5-34 Serum or plasma alanine aminotransferase measurement (enzymatic activity/volume ) 31 U/L 0-55 Serum or plasma protein measurement (mass/volume) 6.5 g/dL 6.4-8.2 Serum or plasma albumin measurement (mass/volume) 3.7 g/dL 3.2-4.5 Bacterial blood culture - 12/31/17 11:35 Bacterial blood culture NG NRG Bacterial blood culture - 12/31/17 12:38 Bacterial blood culture NG NRG Encounters ACCT No. Visit Date/Time Discharge Status Pt. Type Provider Facility Loc./Unit Complaint [id number] 12/27/2017 15:51:00 12/27/2017 23:59:59 CLS Preadmit JENNA FRASER APRN [facility] [id number] 12/20/2017 10:27:00 12/20/2017 23:59:59 CLS Outpatient JENNA FRASER APRN [facility] [id number] 12/13/2017 09:41:00 12/13/2017 23:59:59 CLS Outpatient ALIDA HEADLEY MD [facility] [id number] 12/09/2017 16:25:00 12/12/2017 15:50:00 DIS Inpatient CHAZ HARDY MD [facility] 4TH HALLUCINATIONS,UTI [id number] 12/06/2017 09:17:00 12/06/2017 23:59:59 CLS Outpatient ALIDA HEADLEY MD [facility] [id number] 11/29/2017 09:20:00 11/29/2017 23:59:59 CLS Outpatient JENNA FRASER APRN [facility] [id number] 11/21/2017 08:44:00 11/22/2017 12:25:00 DIS Outpatient AWA MOORE, JUAN JOSE Hirsch [facility] CATH [facility] EKG,PAD,A FIB,HTN [id number] 11/08/2017 09:49:00 11/08/2017 23:59:59 CLS Outpatient BRIA JENNAJessie Real APRN [facility] WOUNDC[facility] [id number] 11/02/2017 10:21:00 11/02/2017 13:24:00 DIS Emergency PRABHA ROGERS MD [facility] ER RT FOOT PAIN [id number] 09/21/2017 10:25:00 09/21/2017 23:59:59 CLS Outpatient ROMELIA BALES MD [facility] CARD NEW ONSET AFIB [id number] 12/30/2015 08:09:00 02/02/2016 16:00:00 DIS Outpatient KATERIN GARZA MD [facility] WOUND[facility] [id number] 12/09/2015 08:07:00 12/22/2015 00:01:00 DIS Outpatient KATERIN GARZA MD [facility] [id number] 09/30/2015 11:20:00 09/30/2015 23:59:59 CLS Outpatient KATERIN GARZA MD [facility] RAD CHRONIC ULCER RT LOWER EXR RT LEG [id number] 09/24/2015 08:47:00 09/24/2015 23:59:59 CLS Outpatient KATERIN GARZA MD [facility] LAB CHRONIC ULCER RT LOWER EXR RT LEG [id number] 07/23/2015 10:40:00 07/23/2015 23:59:59 CLS Outpatient ROMELIA BALES MD [facility] RAD LEFT CHOLESTEROL EMBOLI TO RETINAL ARTERY [id number] 03/23/2013 07:31:00 03/24/2013 12:00:00 DIS Inpatient ROMELIA BALES MD [facility] 4TH TIA [id number] 12/31/2017 11:54:00 Document Registration [id number] 07/23/2015 10:40:00 Document Registration [id number] 07/23/2015 10:39:00 Document Registration [id number] 05/07/2012 11:27:00 Document Registration [id number] 07/26/2011 08:10:00 Document Registration [id number] 06/20/2011 12:30:00 Document Registration [id number] 05/30/2011 05:36:00 Document Registration [id number] 05/26/2011 10:50:00 Document Registration [id number] 05/15/2011 16:57:00 Document Registration [id number] 05/10/2011 00:00:00 Document Registration [id number] 05/02/2011 05:37:00 Document Registration [id number] 05/01/2011 11:01:00 Document Registration [id number] 04/17/2011 14:00:00 Document Registration [id number] 04/14/2011 16:20:00 Document Registration [id number] 03/20/2011 15:40:00 Document Registration [id number] 03/14/2011 05:38:00 Document Registration [id number] 03/09/2011 13:34:00 Document Registration [id number] 03/09/2011 08:00:00 Document Registration [id number] 01/11/2011 05:45:00 Document Registration [id number] 01/06/2011 10:24:00 Document Registration [id number] 12/15/2010 09:44:00 Document Registration [id number] 09/13/2010 09:15:00 Document Registration [id number] 09/07/2010 05:48:00 Document Registration [id number] 09/06/2010 06:44:00 Document Registration [id number] 09/02/2010 08:47:00 Document Registration [id number] 08/23/2010 10:13:00 Document Registration [id number] 07/05/2010 13:59:00 Document Registration [id number] 06/04/2010 11:04:00 Document Registration [id number] 05/24/2010 10:02:00 Document Registration [id number] 04/12/2010 07:11:00 Document Registration [id number] 03/14/2010 09:24:00 Document Registration
[2018-01-17] MEDS ORDERED: NS IV 1000 ML 1,000 ML IV SCH ×3 (04:25→15:00)
--- NOTE | 2018-01-17 04:37 | ED Fall/Injury ---
General Chief Complaint: Trauma-Non Activation Stated Complaint: FALL Source: patient, EMS, fdc records, old records Exam Limitations: no limitations History of Present Illness Date Seen by Provider: Jan 17, 2018 Time Seen by Provider: 04:20 Initial Comments Patient presents to the ER by EMS from medical [facility] in [place], [place]. Staff reported that she had a fall and was complaining of pain in her neck and everywhere. When the patient arrived she was aware of where she lives and what town she was in and gave her name but denied pain anywhere. She has had no nausea, dysuria, fevers chills or cough. No chest pain or shortness of breath. EMS reports her blood pressure around 120 systolic using a small cuff. Oxygen sats in the mid 90s room air and heart rate around 100 with a history of A. fib. She is on aspirin, Plavix and Xarelto. Allergies and Home Medications Allergies Coded Allergies: codeine (Unverified Allergy, Mild, sore throat, 12/09/17) levofloxacin (Verified Allergy, Unknown, 12/09/17) sulfamethoxazole (Verified Adverse Reaction, Unknown, RASH, 11/02/17) trimethoprim (Verified Adverse Reaction, Unknown, RASH, 11/02/17) Home Medications Acetaminophen 500 Mg Tablet, 500 MG PO Q6H PRN for PAIN-MILD, (Reported) Atorvastatin Calcium 40 Mg Tablet, 40 MG PO HS, (Reported) Clopidogrel Bisulfate 75 Mg Tablet, 75 MG PO DAILY, (Reported) Diltiazem HCl 180 Mg Cap.er.24h, 180 MG PO DAILY, (Reported) Metoprolol Succinate 100 Mg Tab.er.24h, 100 MG PO DAILY, (Reported) Pantoprazole Sodium 40 Mg Tablet.dr, 40 MG PO DAILY, (Reported) Prednisone 20 Mg Tab, 20 MG PO DAILY, (Reported) Rivaroxaban 15 Mg Tablet, 15 MG PO DAILY, (Reported) Tramadol HCl 50 Mg Tablet, 50 MG PO Q4H PRN for PAIN-MODERATE, (Reported) Patient Home Medication List Home Medication List Reviewed: Yes Review of Systems Review of Systems Constitutional: No chills, No diaphoresis Eyes: Denies Blindness, Denies Blurred Vision Ears, Nose, Mouth, Throat: denies ear pain, denies ear discharge Respiratory: No cough, No short of breath Cardiovascular: No chest pain, No edema Gastrointestinal: No abdominal pain, No constipation Genitourinary: No discharge, No dysuria Musculoskeletal: No back pain, No joint pain, No neck pain Past Gnclzzw-Hgdwdu-Coyfmb Hx Patient Social History Alcohol Use: Denies Use Recreational Drug Use: No Smoking Status: Never a Smoker Type Used: Cigars Former Smoker, Quit: Nov 11, 2017 2nd Hand Smoke Exposure: No Recent Foreign Travel: No Contact w/Someone Who Travel: No Recent Hopitalizations: No Immunizations Up To Date Tetanus Booster (TDap): More than 5yrs Date of Pneumonia Vaccine: Jan 27, 2000 Seasonal Allergies Seasonal Allergies: No Past Medical History Surgeries: Yes CABG Respiratory: No Cardiac: Yes Atrial Fibrillation, High Cholesterol, Hypertension Neurological: Yes TIA Reproductive Disorders: No Sexually Transmitted Disease: No HIV/AIDS: No Genitourinary: No Gastrointestinal: No Musculoskeletal: Yes Arthritis Endocrine: No HEENT: No Hearing Impairment: Denies Cancer: No Psychosocial: No Integumentary: No Blood Disorders: No Family Medical History Patient reports no known family medical history. No Pertinent Family Hx Physical Exam Vital Signs Vital Signs - First Documented 01/17/18 04:27 Temp 98.0 Pulse 88 Resp 16 B/P (MAP) 90/66 (74) Pulse Ox 97 O2 Delivery Room Air Capillary Refill : Height, Weight, BMI Height: 5'1.00" Weight: 143lbs. 0.0oz. [id number]; 27.0 BMI Method:Stated General Appearance: WD/WN, no apparent distress HEENT: PERRL/EOMI, TMs normal, pharynx normal, other (negative for raccoon eyes , Hull sign or hemotympanum any him) Neck: non-tender, normal inspection (c-collar in place) Cardiovascular: normal peripheral pulses, regular rate, rhythm Respiratory: chest non-tender, lungs clear, normal breath sounds, no respiratory distress, no accessory muscle use Peripheral Pulses: 2+ Radial Pulses (R), 2+ Radial Pulses (L) Gastrointestinal: normal bowel sounds, non tender, soft Pelvic: other (negative for ecchymoses but there is tenderness to palpation bilateral hips) Back: normal inspection, no vertebral tenderness Extremities: no pedal edema, other (extensive skin tears dressed from various dates as well as old ecchymoses over the hand secondary to blood draws in the past according to the patient.) Neurologic/Psychiatric: alert, normal mood/affect, oriented x 3 Skin: ecchymosis, other (various skin tears) Progress/Results/Core Measures Results/Orders Lab Results Laboratory Tests Test 01/17/18 04:37 01/17/18 04:55 Range/Units White Blood Count 17.4 H 4.3-11.0 10^3/uL Red Blood Count 4.13 L 4.35-5.85 10^6/uL Hemoglobin 12.9 11.5-16.0 G/DL Hematocrit 39 35-52 % Mean Corpuscular Volume 95 80-99 FL Mean Corpuscular Hemoglobin 31 25-34 PG Mean Corpuscular Hemoglobin Concent 33 32-36 G/DL Red Cell Distribution Width 17.2 H 10.0-14.5 % Platelet Count 320 130-400 10^3/uL Mean Platelet Volume 10.9 H 7.4-10.4 FL Neutrophils (%) (Auto) 84 H 42-75 % Lymphocytes (%) (Auto) 8 L 12-44 % Monocytes (%) (Auto) 7 0-12 % Eosinophils (%) (Auto) 0 0-10 % Basophils (%) (Auto) 0 0-10 % Neutrophils # (Auto) 14.6 H 1.8-7.8 X 10^3 Lymphocytes # (Auto) 1.4 1.0-4.0 X 10^3 Monocytes # (Auto) 1.3 H 0.0-1.0 X 10^3 Eosinophils # (Auto) 0.0 0.0-0.3 10^3/uL Basophils # (Auto) 0.0 0.0-0.1 10^3/uL Neutrophils % (Manual) 76 % Lymphocytes % (Manual) 9 % Monocytes % (Manual) 12 % Eosinophils % (Manual) 0 % Basophils % (Manual) 0 % Band Neutrophils 2 % Reactive Lymphocytes 1 % Anisocytosis SLIGHT Prothrombin Time 19.9 H 12.2-14.7 SEC INR Comment 1.7 H 0.8-1.4 Activated Partial Thromboplast Time 35 24-35 SEC Sodium Level 141 135-145 MMOL/L Potassium Level 3.5 L 3.6-5.0 MMOL/L Chloride Level 102 98-107 MMOL/L Carbon Dioxide Level 26 21-32 MMOL/L Anion Gap 13 5-14 MMOL/L Blood Urea Nitrogen 43 H 7-18 MG/DL Creatinine 1.35 H 0.60-1.30 MG/DL Estimat Glomerular Filtration Rate 37 BUN/Creatinine Ratio 32 Glucose Level 79 70-105 MG/DL Lactic Acid Level 2.39 *H 0.50-2.00 MMOL/L Calcium Level 8.7 8.5-10.1 MG/DL Corrected Calcium 8.9 8.5-10.1 MG/DL Total Bilirubin 0.9 0.1-1.0 MG/DL Aspartate Amino Transf (AST/SGOT) 29 5-34 U/L Alanine Aminotransferase (ALT/SGPT) 28 0-55 U/L Alkaline Phosphatase 88 40-136 U/L Total Protein 6.2 L 6.4-8.2 GM/DL Albumin 3.7 3.2-4.5 GM/DL Urine Color YELLOW Urine Clarity CLEAR Urine pH 6 5-9 Urine Specific [place] 1.015 L 1.016-1.022 Urine Protein 1+ H NEGATIVE Urine Glucose (UA) NEGATIVE NEGATIVE Urine Ketones 1+ H NEGATIVE Urine Nitrite NEGATIVE NEGATIVE Urine Bilirubin NEGATIVE NEGATIVE Urine Urobilinogen NORMAL NORMAL MG/DL Urine Leukocyte Esterase 1+ H NEGATIVE Urine RBC (Auto) NEGATIVE NEGATIVE Urine RBC NONE /HPF Urine WBC 0-2 /HPF Urine Squamous Epithelial Cells 2-5 /HPF Urine Crystals NONE /LPF Urine Bacteria TRACE /HPF Urine Casts PRESENT /LPF Urine Hyaline Casts 2-5 H /LPF Urine Mucus NEGATIVE /LPF Urine Culture Indicated NO My Orders Orders - BLADIMIR,TANGELA Hirsch Cbc With Automated Diff (01/17/18 04:25) Comprehensive Metabolic Panel (01/17/18 04:25) Ua Culture If Indicated (01/17/18 04:25) Ct Head/Cervical Spine Wo (01/17/18 04:25) Chest 1 View, Ap/Pa Only (01/17/18 04:25) Pelvis (01/17/18 04:25) Saline Lock/Iv-Start (01/17/18 04:25) Ns Iv 1000 Ml (Sodium Chloride 0.9%) (01/17/18 04:25) Blood Culture (01/17/18 04:39) Sputum Culture (01/17/18 04:39) Urine Culture (01/17/18 04:39) Protime With Inr (01/17/18 04:39) Partial Thromboplastin Time (01/17/18 04:39) Saline Lock/Iv-Start (01/17/18 04:39) Vital Signs Adult Sepsis Patie Q15M (01/17/18 04:39) Remove Rings In Anticipation O (01/17/18 04:39) Lactic Acid Analyzer (01/17/18 04:39) Ns Iv 1000 Ml (Sodium Chloride 0.9%) (01/17/18 04:39) Piperacillin Sodium/Tazobactam (Zosyn Vi (01/17/18 04:45) Manual Differential (01/17/18 04:37) Medications Given in ED Current Medications Medications Dose Ordered Sig/Alicia Route Start Time Stop Time Status Last Admin Dose Admin Piperacillin Sod/ Tazobactam Sod 4.5 gm/Sodium Chloride 100 ml @ 200 mls/hr ONCE ONCE IV 01/17/18 04:45 01/17/18 05:15 DC 01/17/18 05:13 200 MLS/HR Vital Signs/I&O 01/17/18 04:27 Temp 98.0 Pulse 88 Resp 16 B/P (MAP) 90/66 (74) Pulse Ox 97 O2 Delivery Room Air Progress Progress Note #1: Time: 04:37 Progress Note Blood pressure is consistently in the upper 90s. Using the smaller dog cuff. We will go ahead and give her a 2 L bolus. Her mouth does appear to be very dry and since she is wheelchair dependent it's possible she has not been able to get to fluids herself recently. We are not ruling out infection however until we get some urine from her and labs. Other than pelvis pain she's not having any other focal deficits or complaints. We'll get x-rays of her head and neck, chest, pelvis and go from there. Progress Note #2: Time: 06:02 Progress Note Repeat examination after the patient's received a liter fluids and her blood pressure is now 95-100 systolic heart rate is still around 110-120. She is resting comfortably. X-rays do not reveal any acute processes. Labs do demonstrate a septic process to be possible although no focal infection is been found yet. Antibiotics were started the patient is improving. She is still receiving her first 30 mL/kg bolus. C-collar is cleared by imaging and clinical exam. Diagnostic Imaging Diagonstic Imaging: CT Plain Films/CT/US/NM/MRI: c-spine, head Comments No acute intracranial hemorrhage, tumor, mass effect or midline shift. No fracture of the head or C-spine. Normal alignment or subluxation. Chronic degenerative changes noted. Reviewed: Reviewed by Me Diagonstic Imaging: Xray Plain Films/CT/US/NM/MRI: chest (one view) Comments No acute cardio pulmonary processes noted. Reviewed: Reviewed by Me Diagonstic Imaging: Xray Plain Films/CT/US/NM/MRI: pelvis Comments 1 view pelvis showing a right prosthetic hip, grafting of bilateral femoral arteries and no new acute processes noted. Reviewed: Reviewed by Me Departure Impression Primary Impression: Septic shock Additional Impressions: Acute kidney injury (nontraumatic) Elevated INR Fall Qualified Codes: W19.XXXA - Unspecified fall, initial encounter Disposition: ADMITTED INPATIENT Condition: Stable Admissions Decision to Admit Reason: Admit from ER (General) Decision to Admit/Date: Jan 17, 2018 Time/Decision to Admit Time: 05:48 Departure-Patient Inst. Referrals: ROMELIA BALES MD (PCP/Family) Primary Care Physician Copy Copies To 1: ROMELIA BALES MD, TITUS J Jan 17, 2018 04:37
[2018-01-17] MEDS ORDERED: PIPERACILLIN SODIUM/TAZOBACTAM 4.5 GM in NS (IVPB) 100 ML IV ONE (04:45)
[2018-01-17 04:50] LABS: BASOPHILS % (AUTO) 0 % (0-10); EOSINOPHILS % (AUTO) 0 % (0-10); HEMATOCRIT 39 % (35-52); HEMOGLOBIN 12.9 G/DL (11.5-16.0); LYMPHOCYTES # (AUTO) 1.4 X 10^3 (1.0-4.0); LYMPHOCYTES % (AUTO) 8 % (12-44); MEAN CORPUSCULAR HEMOGLOBIN 31 PG (25-34); MEAN CORPUSCULAR HGB CONC 33 G/DL (32-36); MEAN CORPUSCULAR VOLUME 95 FL (80-99); MEAN PLATELET VOLUME 10.9 FL (7.4-10.4); MONOCYTES # (AUTO) 1.3 X 10^3 (0.0-1.0); MONOCYTES % (AUTO) 7 % (0-12); NEUTROPHILS # (AUTO) 14.6 X 10^3 (1.8-7.8); NEUTROPHILS % (AUTO) 84 % (42-75); PLATELET COUNT 320 10^3/uL (130-400); RED BLOOD COUNT 4.13 10^6/uL (4.35-5.85); RED CELL DISTRIBUTION WIDTH 17.2 % (10.0-14.5); WHITE BLOOD COUNT 17.4 10^3/uL (4.3-11.0)
[2018-01-17 05:02] LABS: INR 1.7 (0.8-1.4); PROTHROMBIN TIME PATIENT 19.9 SEC (12.2-14.7)
[2018-01-17 05:07] LABS: ALBUMIN 3.7 GM/DL (3.2-4.5); BILIRUBIN,TOTAL 0.9 MG/DL (0.1-1.0); CALCIUM 8.7 MG/DL (8.5-10.1); CREATININE SERUM 1.35 MG/DL (0.60-1.30); POTASSIUM 3.5 MMOL/L (3.6-5.0); TOTAL PROTEIN 6.2 GM/DL (6.4-8.2)
[2018-01-17 05:09] LABS: BILIRUBIN,URINE NEGATIVE (NEGATIVE); CLARITY,URINE CLEAR; COLOR,URINE YELLOW; GLUCOSE, URINE (UA) NEGATIVE (NEGATIVE); KETONES,URINE 1+ (NEGATIVE); LEUKOCYTE ESTERASE ,URINE 1+ (NEGATIVE); NITRITE,URINE NEGATIVE (NEGATIVE); PH,URINE 6 (5-9); PROTEIN,URINE 1+ (NEGATIVE); UROBILINOGEN,URINE NORMAL (NORMAL)
[2018-01-17 05:16] LABS: ANISOCYTOSIS SLIGHT; BAND NEUTROPHILS 2 %; BASOPHILS % (MANUAL) 0 %; EOSINOPHILS % (MANUAL) 0 %; LYMPHOCYTES % (MANUAL) 9 %; MONOCYTES % (MANUAL) 12 %; NEUTROPHILS % (MANUAL) 76 %; REACTIVE LYMPHOCYTES 1 %
[2018-01-17 05:18] LABS: BACTERIA,URINE TRACE /HPF; WBC,URINE 0-2 /HPF
--- NOTE | 2018-01-17 05:53 | Diagnostic Imaging Report ---
INDICATION: Injury from a fall AP view pelvis shows postop changes from right hip arthroplasty. There are vascular stents in the iliac and superficial femoral arteries bilaterally. There are degenerative changes in the left hip with joint space narrowing. There is no appreciable fracture or dislocation. IMPRESSION: No acute abnormalities in the pelvis Dictated by: Dictated on workstation # [id number]
--- NOTE | 2018-01-17 05:54 | Diagnostic Imaging Report ---
INDICATION: Injury from a fall Portable chest 5:25 AM Heart and mediastinum are normal. Lungs are clear. There are no effusions or pneumothoraces. IMPRESSION: Negative chest Dictated by: Dictated on workstation # [id number]
--- OUTSIDE RECORDS SUMMARY | 2018-01-17 06:22 | XMS REPORT | Clinical Summary ---
Author Author [facility] Organization [facility] Address Unknown Phone Unavailable Care Team Providers Care Environmental Lead Name Role Phone Sheldon Spann MD Unavailable Krish Saba MD PCP Source Comments Some departments are not documenting in the electronic medical record. If you do not see the information that you expected, contact Release of Information in the Health Information Management department at [phone] for further assistance in locating additional records.[facility] Allergies Active Allergy Reactions Severity Noted [...]
--- OUTSIDE RECORDS SUMMARY | 2018-01-17 06:23 | XMS REPORT | Continuity of Care Document ---
Author Author [facility] Organization [facility] Address Unknown Phone Unavailable Allergies Active Description Code Type Severity Reaction Onset Reported/Identified Relationship to Patient Clinical Status Yes sulfamethoxazole [id number] Drug Allergy Unknown RASH 11/02/2017 Yes trimethoprim [id number] Drug Allergy Unknown RASH 11/02/2017 Yes codeine [id number] Drug Allergy Mild sore throat 12/09/2017 Yes levofloxacin [id number] Drug Allergy Unknown N/A 12/09/2017 Medications There [...] BALES MD Ot 414.01 CORONARY ATHEROSCLEROSIS OF [place] CORON 03/24/2013 ROMELIA BALES MD Ot 435.9 [...] FOOT 11/02/2017 PRABHA ROGERS MD Ot 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 11/02/2017 PRABHA ROGERS [...] FOOT 11/05/2017 PRABHA ROGERS MD Ot Z79.82 INTERMEDIATE (CURRENT) USE OF ASPIRIN 11/05/2017 PRABHA ROGERS [...] ULCER AND INFLAM OF 11/09/2017 JENNA FRASER BRUSHING OPERATOR Ot L97.212 NON-PRESSURE CHRONIC ULCER OF RIGHT CALF 11/09/2017 JENNA FRASER BRUSHING OPERATOR Ot L97.512 NON-PRS CHRONIC ULCER OTH PRT RIGHT FOOT 11/09/2017 JENNA FRASER BRUSHING OPERATOR Ot L97.522 NON-PRS CHRONIC ULCER OTH PRT LEFT FOOT 11/09/2017 JENNA FRASER APRN Ot I87.333 CHRONIC VENOUS HTN W ULCER AND INFLAM OF 11/09/2017 JENNA FRASER BRUSHING OPERATOR Ot L97.212 NON-PRESSURE CHRONIC ULCER OF RIGHT CALF 11/09/2017 JENNA FRASER BRUSHING OPERATOR Ot L97.512 NON-PRS CHRONIC ULCER OTH PRT RIGHT FOOT 11/09/2017 JENNA FRASER BRUSHING OPERATOR Ot L97.522 NON-PRS CHRONIC ULCER OTH PRT LEFT FOOT 11/19/2017 JENNA FRASER BRUSHING OPERATOR Ot I87.333 CHRONIC VENOUS HTN W ULCER AND INFLAM OF 11/19/2017 JENNA FRASER BRUSHING OPERATOR Ot L97.212 NON-PRESSURE CHRONIC ULCER OF RIGHT CALF 11/19/2017 JENNA FRASER BRUSHING OPERATOR Ot L97.512 NON-PRS CHRONIC ULCER OTH PRT RIGHT FOOT 11/19/2017 JENNA FRASER BRUSHING OPERATOR Ot L97.522 NON-PRS CHRONIC ULCER OTH PRT LEFT FOOT 11/22/2017 JUAN JOSE BILLINGS MD Ot E78.5 HYPERLIPIDEMIA, UNSPECIFIED 11/22/2017 JUAN JOSE BILLINGS MD Ot I10 ESSENTIAL (PRIMARY) HYPERTENSION 11/22/2017 JUAN JOSE BILLINGS MD Ot I25.10 ATHSCL HEART DISEASE OF [place] CORONARY 11/22/2017 JUAN JOSE BILLINGS MD Ot I48.1 PERSISTENT ATRIAL FIBRILLATION 11/22/2017 JUAN JOSE BILLINGS MD Ot I70.235 ATHSCL [place] ARTERIES OF RIGHT LEG W UL 11/22/2017 [...] MD Ot I25.10 ATHSCL HEART DISEASE OF [place] CORONARY 11/22/2017 JUAN JOSE BILLINGS MD Ot I48.1 PERSISTENT ATRIAL FIBRILLATION 11/22/2017 JUAN JOSE BILLINGS MD Ot I70.235 ATHSCL [place] ARTERIES OF RIGHT LEG W UL 11/22/2017 [...] MD Ot I25.10 ATHSCL HEART DISEASE OF [place] CORONARY 11/27/2017 JUAN JOSE BILLINGS MD Ot I48.1 PERSISTENT ATRIAL FIBRILLATION 11/27/2017 JUAN JOSE BILLINGS MD Ot I70.235 ATHSCL [place] ARTERIES OF RIGHT LEG W UL 11/27/2017 [...] MD Ot I25.10 ATHSCL HEART DISEASE OF [place] CORONARY 11/27/2017 JUAN JOSE BILLINGS MD Ot I48.1 PERSISTENT ATRIAL FIBRILLATION 11/27/2017 JUAN JOSE BILLINGS MD Ot I70.235 ATHSCL [place] ARTERIES OF RIGHT LEG W UL 11/27/2017 JUAN JOSE BILLINGS MD Ot L97.519 NON-PRS CHRONIC ULCER OTH PRT RIGHT FOOT 11/27/2017 JUAN JOSE BILLINGS MD Ot Z86.73 PRSNL HX OF TIA (TIA), AND CEREB INFRC W 11/27/2017 JUAN JOSE BILLINGS MD Ot Z87.891 PERSONAL HISTORY OF NICOTINE DEPENDENCE 11/30/2017 JENNA FRASER BRUSHING OPERATOR Ot I70.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 11/30/2017 JENNA FRASER BRUSHING OPERATOR Ot I70.235 ATHSCL [place] ARTERIES OF RIGHT LEG W UL 11/30/2017 JENNA FRASER APRN Ot I70.245 ATHSCL [place] ARTERIES OF LEFT LEG W ULC 11/30/2017 JENNA FRASER APRN Ot I87.333 CHRONIC VENOUS HTN W ULCER AND INFLAM OF 11/30/2017 JENNA FRASER BRUSHING OPERATOR Ot L97.212 NON-PRESSURE CHRONIC ULCER OF RIGHT CALF 11/30/2017 JENNA FRASER BRUSHING OPERATOR Ot L97.512 NON-PRS CHRONIC ULCER OTH PRT RIGHT FOOT 11/30/2017 JENNA FRASER BRUSHING OPERATOR Ot L97.522 NON-PRS CHRONIC ULCER OTH PRT LEFT FOOT 12/10/2017 JENNA FRASER BRUSHING OPERATOR Ot I70.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 12/10/2017 JENNA FRASER BRUSHING OPERATOR Ot I70.235 ATHSCL [place] ARTERIES OF RIGHT LEG W UL 12/10/2017 JENNA FRASER APRN Ot I70.245 ATHSCL [place] ARTERIES OF LEFT LEG W ULC 12/10/2017 [...] 12/10/2017 ALIDA HEADLEY MD Ot I70.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 12/10/2017 ALIDA HEADLEY MD Ot I70.235 ATHSCL [place] ARTERIES OF RIGHT LEG W UL 12/10/2017 ALIDA HEADLEY MD Ot I70.245 ATHSCL [place] ARTERIES OF LEFT LEG W C 12/10/2017 [...] MD Ot I25.10 ATHSCL HEART DISEASE OF [place] CORONARY 12/12/2017 CHAZ HARDY MD Ot I48.0 PAROXYSMAL ATRIAL FIBRILLATION 12/12/2017 CHAZ HARDY MD Ot I70.235 ATHSCL [place] ARTERIES OF RIGHT LEG W UL 12/12/2017 [...] 12/12/2017 ALIDA HEADLEY MD Ot I70.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 12/12/2017 ALIDA HEADLEY MD Ot I70.235 ATHSCL [place] ARTERIES OF RIGHT LEG W UL 12/12/2017 ALIDA HEADLEY MD Ot I70.245 ATHSCL [place] ARTERIES OF LEFT LEG W ULC 12/12/2017 ALIDA HEADLEY MD Ot I87.333 CHRONIC VENOUS HTN W ULCER AND INFLAM OF 12/12/2017 ALIDA HEADLEY MD Ot L97.212 NON-PRESSURE CHRONIC ULCER OF RIGHT CALF 12/12/2017 ALIDA HEADLEY MD Ot L97.512 NON-PRS CHRONIC ULCER OTH PRT RIGHT FOOT 12/12/2017 ALIAD HEADLEY MD Ot L97.522 NON-PRS CHRONIC ULCER OTH PRT LEFT FOOT 12/12/2017 CHAZ HARDY MD, Ot A41.9 SEPSIS, UNSPECIFIED ORGANISM 12/12/2017 CHAZ HARDY MD Ot E78.00 PURE HYPERCHOLESTEROLEMIA, UNSPECIFIED 12/12/2017 CHAZ HARDY MD Ot I10 ESSENTIAL (PRIMARY) HYPERTENSION 12/12/2017 CHAZ HARDY MD, Ot I25.10 ATHSCL HEART DISEASE OF [place] CORONARY 12/12/2017 CHAZ HARDY MD, Ot I48.0 PAROXYSMAL ATRIAL FIBRILLATION 12/12/2017 CHAZ HARDY MD, Ot I70.235 ATHSCL [place] ARTERIES OF RIGHT LEG W UL 12/12/2017 [...] 12/14/2017 ALIDA HEADLEY MD Ot I70.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 12/14/2017 ALIDA HEADLEY MD Ot I70.235 ATHSCL [place] ARTERIES OF RIGHT LEG W UL 12/14/2017 ALIDA HEADLEY MD Ot I70.245 ATHSCL [place] ARTERIES OF LEFT LEG W ULC 12/14/2017 [...] 12/17/2017 ALIDA HEADLEY MD Ot I70.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 12/17/2017 ALIDA HEADLEY MD Ot I70.235 ATHSCL [place] ARTERIES OF RIGHT LEG W UL 12/17/2017 ALIDA HEADLEY MD Ot I70.245 ATHSCL [place] ARTERIES OF LEFT LEG W ULC 12/17/2017 [...] OF RIGHT CALF 12/24/2017 BRIA, JENNA R BRUSHING OPERATOR Ot L97.512 NON-PRS CHRONIC ULCER OTH PRT RIGHT FOOT 12/24/2017 JENNA FRASER BRUSHING OPERATOR Ot L97.522 NON-PRS CHRONIC ULCER OTH PRT LEFT FOOT 12/24/2017 JENNA FRASER BRUSHING OPERATOR Ot I70.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 12/24/2017 JNENA FRASER BRUSHING OPERATOR Ot I70.235 ATHSCL [place] ARTERIES OF RIGHT LEG W UL 12/24/2017 JENNA FRASER BRUSHING OPERATOR Ot I70.245 ATHSCL [place] ARTERIES OF LEFT LEG W ULC 12/24/2017 JENNA FRASER BRUSHING OPERATOR Ot I87.333 CHRONIC VENOUS HTN W ULCER AND INFLAM OF 12/24/2017 JENNA FRASER BRUSHING OPERATOR Ot L97.212 NON-PRESSURE CHRONIC ULCER OF RIGHT CALF 12/24/2017 JENNA FRASER BRUSHING OPERATOR Ot L97.512 NON-PRS CHRONIC ULCER OTH PRT RIGHT FOOT 12/24/2017 JENNA FRASER BRUSHING OPERATOR Ot L97.522 NON-PRS CHRONIC ULCER OTH PRT LEFT FOOT 12/24/2017 ALIDA HEADLEY MD Ot I70.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 12/24/2017 ALIDA HEADLEY MD Ot I70.235 ATHSCL [place] ARTERIES OF RIGHT LEG W 12/24/2017 ALIDA HEADLEY MD Ot I70.245 ATHSCL [place] ARTERIES OF LEFT LEG W [facility] 12/24/2017 ALIDA HEADLEY MD Ot I87.333 CHRONIC VENOUS HTN W ULCER AND INFLAM OF 12/24/2017 ALIDA HEADLEY MD Ot L97.212 NON-PRESSURE CHRONIC ULCER OF RIGHT CALF 12/24/2017 ALIDA HEADLEY MD Ot L97.512 NON-PRS CHRONIC ULCER OTH PRT RIGHT FOOT 12/24/2017 ALIDA HEADLEY MD Ot L97.522 NON-PRS CHRONIC ULCER OTH PRT LEFT FOOT 12/24/2017 ALIDA HEADLEY MD Ot I70.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 12/24/2017 ALIDA HEADLEY MD Ot I70.235 ATHSCL [place] ARTERIES OF RIGHT LEG W UL 12/24/2017 ALIDA HEADLEY MD Ot I70.245 ATHSCL [place] ARTERIES OF LEFT LEG W [facility] 12/24/2017 ALIDA HEADLEY MD Ot I87.333 CHRONIC VENOUS HTN W ULCER AND INFLAM OF 12/24/2017 ALIDA HEADLEY MD Ot L97.212 NON-PRESSURE CHRONIC ULCER OF RIGHT CALF 12/24/2017 ALIDA HEADLEY MD Ot L97.512 NON-PRS CHRONIC ULCER OTH PRT RIGHT FOOT 12/24/2017 ALIDA HEADLEY MD Ot L97.522 NON-PRS CHRONIC ULCER OTH PRT LEFT FOOT 12/24/2017 JENNA FRASER BRUSHING OPERATOR Ot I70.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 12/24/2017 JENNA FRASER BRUSHING OPERATOR Ot I70.235 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 Type Provider Facility Loc./Unit Complaint [id number] 12/27/2017 15:51:00 12/27/2017 23:59:59 CLS Preadmit JENNA FRASER APRN [facility] [id number] 12/20/2017 10:27:00 12/20/2017 23:59:59 CLS Outpatient JENNA FRASER APRN [facility] [id number] 12/13/2017 09:41:00 12/13/2017 23:59:59 CLS Outpatient ALIDA HEADLEY MD [facility] [id number] 12/09/2017 16:25:00 12/12/2017 15:50:00 DIS Inpatient CHAZ HARDY MD [facility] 4TH HALLUCINATIONS,UTI [id number] 12/06/2017 09:17:00 12/06/2017 23:59:59 CLS Outpatient ALIDA HEADLEY MD [facility] [id number] 11/29/2017 09:20:00 11/29/2017 23:59:59 CLS Outpatient JENNA FRASER APRN [facility] [id number] 11/21/2017 08:44:00 11/22/2017 12:25:00 DIS Outpatient AWA MOORE, JUAN JOSE Hirsch [facility] CATH [facility] EKG,PAD,A FIB,HTN [id number] 11/08/2017 09:49:00 11/08/2017 23:59:59 CLS Outpatient BRIA JENNAJessie Real APRN [facility] WOUNDCARE [id number] 11/02/2017 10:21:00 11/02/2017 13:24:00 DIS Emergency PRABHA ROGERS MD [facility] ER RT FOOT PAIN [id number] 09/21/2017 10:25:00 09/21/2017 23:59:59 CLS Outpatient ROMELIA BALES MD [facility] CARD NEW ONSET AFIB [id number] 12/30/2015 08:09:00 02/02/2016 16:00:00 DIS Outpatient KATERIN GARZA MD [facility] [id number] 12/09/2015 08:07:00 12/22/2015 00:01:00 DIS Outpatient KATERIN GARZA MD [facility] [id number] 09/30/2015 11:20:00 09/30/2015 23:59:59 CLS Outpatient KATERIN GARZA MD [facility] RAD CHRONIC ULCER RT LOWER EXR RT LEG [id number] 09/24/2015 08:47:00 09/24/2015 23:59:59 CLS Outpatient KATERIN GARZA MD [facility] LAB CHRONIC ULCER RT LOWER EXR RT LEG [id number] 07/23/2015 10:40:00 07/23/2015 23:59:59 CLS Outpatient ROMELIA BALES MD [facility] RAD LEFT CHOLESTEROL EMBOLI TO RETINAL ARTERY [id number] 03/23/2013 07:31:00 03/24/2013 12:00:00 DIS Inpatient ROMELIA BALES MD [facility] 4TH TIA [id number] 12/31/2017 11:54:00 Document Registration [id number] 07/23/2015 10:40:00 Document Registration [id number] 07/23/2015 10:39:00 Document Registration [id number] 05/07/2012 11:27:00 Document Registration [id number] 07/26/2011 08:10:00 Document Registration [id number] 06/20/2011 12:30:00 Document Registration [id number] 05/30/2011 05:36:00 Document Registration [id number] 05/26/2011 10:50:00 Document Registration [id number] 05/15/2011 16:57:00 Document Registration [id number] 05/10/2011 00:00:00 Document Registration [id number] 05/02/2011 05:37:00 Document Registration [id number] 05/01/2011 11:01:00 Document Registration [id number] 04/17/2011 14:00:00 Document Registration [id number] 04/14/2011 16:20:00 Document Registration [id number] 03/20/2011 15:40:00 Document Registration [id number] 03/14/2011 05:38:00 Document Registration [id number] 03/09/2011 13:34:00 Document Registration [id number] 03/09/2011 08:00:00 Document Registration [id number] 01/11/2011 05:45:00 Document Registration [id number] 01/06/2011 10:24:00 Document Registration [id number] 12/15/2010 09:44:00 Document Registration [id number] 09/13/2010 09:15:00 Document Registration [id number] 09/07/2010 05:48:00 Document Registration [id number] 09/06/2010 06:44:00 Document Registration [id number] 09/02/2010 08:47:00 Document Registration [id number] 08/23/2010 10:13:00 Document Registration [id number] 07/05/2010 13:59:00 Document Registration [id number] 06/04/2010 11:04:00 Document Registration [id number] 05/24/2010 10:02:00 Document Registration [id number] 04/12/2010 07:11:00 Document Registration [id number] 03/14/2010 09:24:00 Document Registration
[2018-01-17 06:44] VITALS: BP 103/72
[2018-01-17] MEDS ORDERED: NOREPINEPHRINE 4 MG in NS (IVPB) 250 ML IV SCH (06:57)
--- NOTE | 2018-01-17 07:10 | Diagnostic Imaging Report ---
PROCEDURE: CT head and CT cervical spine without contrast. TECHNIQUE: Multiple contiguous axial images were obtained through the brain and cervical spine without the use of intravenous contrast. Sagittal and coronal reformations through the cervical spine were then performed. INDICATION: Head injury from a fall. CT head: There is generalized atrophy. There are no masses or hemorrhages. There are no extra-axial fluid collections. There are no skull fractures seen. IMPRESSION: Senescent changes of the brain. No acute abnormality is seen. CT cervical spine: Vertebral body height and alignment appear normal. There is degenerative change throughout the cervical spine. This is most severe at C3-C4, C5-C6 and C6-C7. There are some degenerative changes of the uncovertebral joints most notably at C3-C4 and C5-C6. There is no fracture or misalignment. IMPRESSION: Degenerative changes are present in the cervical spine but there is no acute abnormality seen. Dictated by: Dictated on workstation # [id number]
[2018-01-17] MEDS: NS IV 1000 ML 1,000 ML IV SCH ×2 (07:27→12:40)
--- NOTE | 2018-01-17 07:38 | History & Physical-Hospitalist ---
History of Present Illness HPI/Chief Complaint Pt is an 87yoCF with a PMH of PAD with critical limb ischemia who presented to the ER from her NH with complaints of a fall. She does not remember falling and is slightly confused during my exam. Her only complaint is that she is very cold. She really provides no other history. She was recently at [place] for a prolonged period of time due to her PAD but she has no recollection of what was done for her there. On presentation here she was found to be mildly hypotensive with tachycardia and leukocytosis. Her lower extremity wounds were concerning for infection and she was admitted to the ICU for severe sepsis. Source: patient Exam Limitations: clinical condition (confused) Date Seen 01/17/18 Time Seen by Provider: 07:30 Attending Physician Hernesto Bliss MD PCP Krish Saba MD Referring Physician Date of Admission Jan 17, 2018 at 05:50 Home Medications & Allergies Home Medications Reviewed patient Home Medication Reconciliation performed by pharmacy medication reconciliations garage door technician and/or nursing. Patients Allergies have been reviewed. Allergies Allergies Coded Allergies codeine (Unverified Allergy, Mild, sore throat, 12/09/17) levofloxacin (Verified Allergy, Unknown, 12/09/17) sulfamethoxazole (Verified Adverse Reaction, Unknown, RASH, 11/02/17) trimethoprim (Verified Adverse Reaction, Unknown, RASH, 11/02/17) Past Dpuemia-Mfokty-Znsuef Hx Past Med/Social Hx: Reviewed Nursing Past Med/Soc Hx Patient Social History Alcohol Use: Denies Use Recreational Drug Use: No Smoking Status: Never a Smoker Former Smoker, Quit: Nov 11, 2017 Type Used: Cigars 2nd Hand Smoke Exposure: No Recent Foreign Travel: No Contact w/other who traveled: No Recent Hopitalizations: No Recent Infectious Disease Expo: No Immunizations Up To Date Tetanus Booster (TDap): Unknown Date of Pneumonia Vaccine: Jan 27, 2000 Seasonal Allergies Seasonal Allergies: No Past Medical History Surgeries: CABG Cardiac: Atrial Fibrillation, High Cholesterol, Hypertension PAD Neurological: TIA Reproductive: No Sexually Transmitted Disease: No HIV/AIDS: No Musculoskeletal: Arthritis Hearing Impairment: Denies History of Blood Disorders: No Family History Reviewed Nursing Family Hx Patient reports no known family medical history. No Pertinent Family Hx Review of Systems ROS-Unable to Obtain: LImited due to confusion Constitutional: chills; No fever Cardiovascular: No chest pain Musculoskeletal: other (denies leg pain) Physical Exam Physical Exam Vital Signs Vital Signs - First Documented 01/17/18 01/17/18 04:27 06:33 Temp 98.0 Pulse 88 Resp 16 B/P (MAP) 90/66 (74) Pulse Ox 97 O2 Delivery Room Air O2 Flow Rate 2.00 Capillary Refill : Less Than 3 Seconds Height, Weight, BMI Height: 5'1.00" Weight: 143lbs. 0.0oz. 64.752951gv; 27.0 BMI Method:Stated General Appearance: No Apparent Distress, Chronically ill HEENT: No Scleral Icterus (L), No Scleral Icterus (R); Other (dry mucus membranes) Respiratory: Lungs Clear, No Respiratory Distress Cardiovascular: Regular Rate, Rhythm, No Murmur Extremity: No Pedal Edema, Slow Capillary Refill Neurologic/Psychiatric: Alert, Disoriented (pleasantly confused) Skin: Other (multiples ulcers on bilateral lower extremities, covered in gauze , right side with purulence) Results Results/Procedures Labs Laboratory Tests 01/17/18 04:37 Patient resulted labs reviewed. Imaging: Reviewed Imaging Report Assessment/Plan Admission Diagnosis Severe Sepsis Admission Status: Inpatient Order (span 2 midnights) Reason for Inpatient Admission: IV abx, ICU management of sepsis and cardiology evaluation of PAD Diagnosis/Problems Diagnosis/Problems (1) Severe sepsis Status: Acute Assessment & Plan: Tachycardic with leukocytosis Likely source in leg wounds Wound Care consulted, called and discussed with Dr Vásquez who will see patient Zosyn started in ER Will add Vanc as well Await cultures (2) PAD (peripheral artery disease) Assessment & Plan: Discussed with maureen Swanson [facility] Will attempt to get records from [place] as patient unsure of what was done there Continue on Xarelto (3) Acute kidney injury (nontraumatic) Status: Acute Assessment & Plan: Continue IVF Monitor I/O with luke (4) Fall Status: Acute Assessment & Plan: CT head negative Pelvis XR negative Qualifiers: Encounter type: initial encounter Qualified Codes: W19.XXXA - Unspecified fall, initial encounter CHAZ HARDY MD Jan 17, 2018 7:38 am
[2018-01-17] MEDS ORDERED: ACETAMINOPHEN 500 MG TAB (TYLENOL) PO PRN (07:45)
--- NOTE | 2018-01-17 07:50 | Consultation-Cardiology ---
HPI-Cardiology Cardiology Consultation Date of Consultation 01/17/18 Date of Admission Time Seen by Provider: 07:44 Indication: Sepsis HPI 87 years old lady who has extensive coronary and peripheral arterial disease, was sent [facility] after falling, has been complaining of generalized body ache and generalized weakness, patient is slightly confused. Complaining of feeling cold. Denied any chest pain. Has some dyspnea on exertion limited exercise ability, had nonhealing wounds with extensive peripheral arterial disease, she was referred for vascular surgery evaluation and had an intervention but patient was not sure about the type of procedure that was done. Ulcers are still present. Home Medications & Allergies Allergies: Coded Allergies: codeine (Unverified Allergy, Mild, sore throat, 12/09/17) levofloxacin (Verified Allergy, Unknown, 12/09/17) sulfamethoxazole (Verified Adverse Reaction, Unknown, RASH, 11/02/17) trimethoprim (Verified Adverse Reaction, Unknown, RASH, 11/02/17) Home Medication List Reviewed: Yes BCO-Jyuvky-Wocwug Hx Patient Social History Marital Status: Alcohol Use: Denies Use Recreational Drug Use: No Smoking Status: Never a Smoker Type Used: Cigars 2nd Hand Smoke Exposure: No Recent Foreign Travel: No Recent Infectious Disease Expo: No Recent Hopitalizations: No Immunizations Up To Date Tetanus Booster (TDap): Unknown Date of Pneumonia Vaccine: Jan 27, 2000 Past Medical History As described below Family Medical History Significant Family History: No Pertinent Family Hx Family Medical Hx Non contributory Family History: Patient reports no known family medical history. Review of Systems Constitutional: see HPI, dizziness, malaise, weakness EENTM: see HPI, no symptoms reported Respiratory: see HPI; No cough; dyspnea on exertion; No hemoptysis, No orthopnea, No phlegm, No short of breath, No stridor, No wheezing, No other Cardiovascular: see HPI; No chest pain, No edema, No Hx of Intervention, No palpitations, No syncope; vascular heart diseas; No other Gastrointestinal: no symptoms reported, see HPI Genitourinary: no symptoms reported, see HPI Musculoskeletal: see HPI, joint pain, muscle weakness Skin: see HPI, change in color, dryness, lesions Psychiatric/Neurological: No Symptoms Reported, See HPI Reviewed Test Results Reviewed Test Results Lab Laboratory Tests Test 01/17/18 04:37 8/23/18 04:55 01/17/18 07:35 Range/Units White Blood Count 17.4 H 4.3-11.0 10^3/uL Red Blood Count 4.13 L 4.35-5.85 10^6/uL Hemoglobin 12.9 11.5-16.0 G/DL Hematocrit 39 35-52 % Mean Corpuscular Volume 95 80-99 FL Mean Corpuscular Hemoglobin 31 25-34 PG Mean Corpuscular Hemoglobin Concent 33 32-36 G/DL Red Cell Distribution Width 17.2 H 10.0-14.5 % Platelet Count 320 130-400 10^3/uL Mean Platelet Volume 10.9 H 7.4-10.4 FL Neutrophils (%) (Auto) 84 H 42-75 % Lymphocytes (%) (Auto) 8 L 12-44 % Monocytes (%) (Auto) 7 0-12 % Eosinophils (%) (Auto) 0 0-10 % Basophils (%) (Auto) 0 0-10 % Neutrophils # (Auto) 14.6 H 1.8-7.8 X 10^3 Lymphocytes # (Auto) 1.4 1.0-4.0 X 10^3 Monocytes # (Auto) 1.3 H 0.0-1.0 X 10^3 Eosinophils # (Auto) 0.0 0.0-0.3 10^3/uL Basophils # (Auto) 0.0 0.0-0.1 10^3/uL Neutrophils % (Manual) 76 % Lymphocytes % (Manual) 9 % Monocytes % (Manual) 12 % Eosinophils % (Manual) 0 % Basophils % (Manual) 0 % Band Neutrophils 2 % Reactive Lymphocytes 1 % Anisocytosis SLIGHT Prothrombin Time 19.9 H 12.2-14.7 SEC INR Comment 1.7 H 0.8-1.4 Activated Partial Thromboplast Time 35 24-35 SEC Sodium Level 141 135-145 MMOL/L Potassium Level 3.5 L 3.6-5.0 MMOL/L Chloride Level 102 98-107 MMOL/L Carbon Dioxide Level 26 21-32 MMOL/L Anion Gap 13 5-14 MMOL/L Blood Urea Nitrogen 43 H 7-18 MG/DL Creatinine 1.35 H 0.60-1.30 MG/DL Estimat Glomerular Filtration Rate 37 BUN/Creatinine Ratio 32 Glucose Level 79 70-105 MG/DL Lactic Acid Level 2.39 *H 0.50-2.00 MMOL/L Calcium Level 8.7 8.5-10.1 MG/DL Corrected Calcium 8.9 8.5-10.1 MG/DL Total Bilirubin 0.9 0.1-1.0 MG/DL Aspartate Amino Transf (AST/SGOT) 29 5-34 U/L Alanine Aminotransferase (ALT/SGPT) 28 0-55 U/L Alkaline Phosphatase 88 40-136 U/L Total Protein 6.2 L 6.4-8.2 GM/DL Albumin 3.7 3.2-4.5 GM/DL Urine Color YELLOW Urine Clarity CLEAR Urine pH 6 5-9 Urine Specific [place] 1.015 L 1.016-1.022 Urine Protein 1+ H NEGATIVE Urine Glucose (UA) NEGATIVE NEGATIVE Urine Ketones 1+ H NEGATIVE Urine Nitrite NEGATIVE NEGATIVE Urine Bilirubin NEGATIVE NEGATIVE Urine Urobilinogen NORMAL NORMAL MG/DL Urine Leukocyte Esterase 1+ H NEGATIVE Urine RBC (Auto) NEGATIVE NEGATIVE Urine RBC NONE /HPF Urine WBC 0-2 /HPF Urine Squamous Epithelial Cells 2-5 /HPF Urine Crystals NONE /LPF Urine Bacteria TRACE /HPF Urine Casts PRESENT /LPF Urine Hyaline Casts 2-5 H /LPF Urine Mucus NEGATIVE /LPF Urine Culture Indicated NO Physical Exam Vital Signs Vital Signs - First Documented 01/17/18 01/17/18 04:27 06:33 Temp 98.0 Pulse 88 Resp 16 B/P (MAP) 90/66 (74) Pulse Ox 97 O2 Delivery Room Air O2 Flow Rate 2.00 Capillary Refill : Less Than 3 Seconds Height, Weight, BMI Height: 5'1.00" Weight: 143lbs. 0.0oz. 64.159484xe; 27.0 BMI Method:Stated General Appearance: WD/WN, Mild Distress Eyes: Bilateral Eye Normal Inspection, Bilateral Eye PERRL, Bilateral Eye EOMI HEENT: PERRL/EOMI, TMs Normal, Normal ENT Inspection, Pharynx Normal Neck: Full Range of Motion, Normal Inspection, Non Tender, Supple, Carotid Bruit Respiratory: Chest Non Tender, Lungs Clear, Normal Breath Sounds, No Accessory Muscle Use, No Respiratory Distress Cardiovascular: Regular Rate, Rhythm, No Edema, No Gallop, No JVD, Systolic Murmur Gastrointestinal: Normal Bowel Sounds, No Organomegaly, No Pulsatile Mass, Non Tender, Soft Back: Normal Inspection, No CVA Tenderness, No Vertebral Tenderness Extremity: Non Tender, No Calf Tenderness, No Pedal Edema, Other (Ischemic ulcers on both feet with various degrees) Neurologic/Psychiatric: Alert, No Motor/Sensory Deficits, Normal Mood/Affect, Other (Confused) Skin: Normal Color, Warm/Dry Lymphatic: No Adenopathy A/P-Cardiology Admission Diagnosis Sepsis Peripheral arterial disease Critical limb ischemia Coronary artery disease Assessment/Plan Sepsis, admitted to ICU, septic workup initiated, started on IV fluid. Receiving antibiotics. Probably secondary to foot ulcers. Status post falling, generalized body ache. Managed by primary care team Extensive Peripheral arterial disease, multiple ischemic ulcers on her lower extremities, gangrenous tissue on the right foot. Painful ulcers on the left leg. Had peripheral angiogram in October 2017 Successful balloon angioplasty for totally occluded stent in the right SFA with complex intervention with multiple balloon used with good results. Mild disease at the popliteal artery Successful balloon angioplasty to the right posterior tibial artery with good results Severe disease at the anterior tibial artery on the right, moderate disease at the peroneal artery Severe disease below the knee at the left lower extremity, total occlusion of the left SFA reconstructed by collaterals Small abdominal aortic aneurysm with patent right iliac stent The ulcer on the right leg initially improved somewhat after the intervention then started to do Khadra a rate. She was referred to [facility] for evaluation with vascular surgery, had a procedure done, not sure about the type of procedure. I'll try to obtain copy of the report. Coronary artery disease, history of 3 stents in the past. Was seen in the past by Dr. Adams, I'll try to obtain copy of the record Paroxysmal atrial fibrillation, maintained on Xarelto 15 mg daily. Rate is controlled. Hypertension, continue to monitor blood pressure, continue current medication Hyperlipidemia, monitor lipids History of tobaccoism, stopped smoking in the past. JUAN JOSE BILLINGS MD Jan 17, 2018 07:49
[2018-01-17 08:00] VITALS: BP 97/74
[2018-01-17] MEDS ORDERED: VANCOMYCIN INJECTION 0.1 MG in NS (IVPB) 250 ML IV SCH (08:00)
[2018-01-17] MEDS ORDERED: VANCOMYCIN INJECTION 1,250 MG in NS (IVPB) 250 ML IV NR (08:00)
[2018-01-17 09:00] VITALS: BP 95/66
[2018-01-17] MEDS ORDERED: PANTOPRAZOLE 40 MG (PROTONIX) VIAL IV SCH (09:00)
[2018-01-17] MEDS ORDERED: HYDR-3820 PO (09:29)
[2018-01-17] MEDS ORDERED: [UNRECOGNIZED DRUG - SUPPLY] TOP (09:29)
[2018-01-17] MEDS ORDERED: COLL30OI TP (09:29)
[2018-01-17] MEDS ORDERED: ONDN4T PO (09:29)
[2018-01-17] MEDS ORDERED: LEVO500T80 PO (09:29)
[2018-01-17] MEDS ORDERED: LACT1TAB25 PO (09:29)
[2018-01-17] MEDS ORDERED: DILT180C48 PO (09:29)
[2018-01-17] MEDS ORDERED: TRIA1TAB3 PO (09:29)
[2018-01-17] MEDS ORDERED: POVI1MED TP (09:29)
[2018-01-17] MEDS ORDERED: DILT180C84 PO (09:49)
[2018-01-17 10:00] VITALS: BP 105/59
--- NOTE | 2018-01-17 10:59 | Pulmonary Consultation ---
History of Present Illness History of Present Illness Date of Consultation 01/17/18 10:56 Time Seen by Provider: 10:56 Date of Admission Reason for Visit: Sepsis History of Present Illness 87yo poor historian with hx of severe PAD and limb ischemia recently hospitalized at [facility] presented to ED secondary to s/p fall. Upon ED arrival pt was found to be tachycardic and hypotensive. LE wounds appear infected so pt was admitted to ICU with sepsis. Allergies and Home Medications Allergies Coded Allergies: codeine (Unverified Allergy, Mild, sore throat, 12/09/17) levofloxacin (Verified Allergy, Unknown, 12/09/17) sulfamethoxazole (Verified Adverse Reaction, Unknown, RASH, 11/02/17) trimethoprim (Verified Adverse Reaction, Unknown, RASH, 11/02/17) Home Medications Atorvastatin Calcium 40 Mg Tablet, 40 MG PO HS, (Reported) Clopidogrel Bisulfate 75 Mg Tablet, 75 MG PO DAILY, (Reported) Collagenase 30 Gm Oint..gm., TP DAILY, (Reported) APPLY TO RIGHT FOOT TOPICALLY Diltiazem HCl 180 Mg Cap.er.24h, 180 MG PO DAILY, (Reported) Hydrocodone/Acetaminophen 1 Each Tablet, 1 TAB PO Q4H PRN for PAIN-MODERATE, ( Reported) Lactobacillus Acidophilus 1 Each Tablet, 1 TAB PO TID, (Reported) 10 DAY THERAPY START DATE 01-11-18 Levofloxacin 500 Mg Tablet, 500 MG PO BID, (Reported) START DATE 01-08-18 FOR 10 DAY THERAPY Metoprolol Succinate 100 Mg Tab.er.24h, 100 MG PO DAILY, (Reported) Ondansetron HCl 4 Mg Tab, 4 MG PO Q6H PRN for NAUSEA/VOMITING-1ST LINE, ( Reported) Pantoprazole Sodium 40 Mg Tablet.dr, 40 MG PO DAILY, (Reported) 7 DAY THERAPY START DATE 01-11-18 Povidone-Iodine 1 Each Med..swab, 1 EACH TP BID, (Reported) APPLY TO RIGHT LOWER LEG Rivaroxaban 15 Mg Tablet, 15 MG PO DAILY, (Reported) Tramadol HCl 50 Mg Tablet, 50 MG PO Q4H PRN for PAIN-MODERATE, (Reported) Triamterene/Hydrochlorothiazid 1 Each Tablet, 1 TAB PO DAILY, (Reported) [Xerofoam Pad] , TOP Q48H, (Reported) APPLY TO ALL LEFT LOWER LEG WOUNDS EVERY OTHER DAY [Xerofoam Pad] , TOP Q48H, (Reported) APPLY TO LEFT FOREARM Past Xrrahcq-Daudwb-[id number] Hx Past Med/Social Hx: Reviewed Nursing Past Med/Soc Hx Patient Social History Alcohol Use: Denies Use Recreational Drug Use: No Smoking Status: Never a Smoker Type Used: Cigars Former Smoker, Quit: Nov 11, 2017 2nd Hand Smoke Exposure: No Recent Foreign Travel: No Contact w/Someone Who Travel: No Recent Infectious Disease Expo: No Recent Hopitalizations: No Immunizations Up To Date Tetanus Booster (TDap): Unknown Date of Pneumonia Vaccine: Jan 27, 2000 Seasonal Allergies Seasonal Allergies: No Past Medical History Surgeries: Yes CABG Respiratory: No Cardiac: Yes Atrial Fibrillation, High Cholesterol, Hypertension Neurological: Yes TIA Reproductive Disorders: No Sexually Transmitted Disease: No HIV/AIDS: No Genitourinary: No Gastrointestinal: No Musculoskeletal: Yes Arthritis Endocrine: No HEENT: No Hearing Impairment: Denies Cancer: No Psychosocial: No Integumentary: No Blood Disorders: No Family Medical History Reviewed Nursing Family Hx Patient reports no known family medical history. No Pertinent Family Hx Review of Systems Time Seen by Provider: 13:18 Constitutional: Fever, Chills, Sweats, Weakness, Malaise Respiratory: Cough, Dry, Shortness of breath Cardiovascular: Paroxysmal Noc. Dyspnea Gastrointestinal: No: Nausea, Vomiting Neurological: Weakness Sepsis Event Evaluation Height, Weight, BMI Height: 5'1.00" Weight: 143lbs. 0.0oz. 64.381850wb; 27.0 BMI Method:Stated Exam Exam Vital Signs Date Time Temp Pulse Resp B/P (MAP) Pulse Ox O2 Delivery O2 Flow Rate FiO2 01/17/18 10:00 100 17 105/59 (74) 100 Nasal Cannula 2.00 01/17/18 09:07 97.6 Nasal Cannula 2.00 01/17/18 09:00 107 21 95/66 (76) 100 Nasal Cannula 2.00 01/17/18 08:00 96 13 97/74 (82) 97 Nasal Cannula 2.00 01/17/18 06:52 Nasal Cannula 2.00 01/17/18 06:49 113 01/17/18 06:44 98.3 110 20 103/72 (82) Nasal Cannula 2.00 01/17/18 06:33 98.0 100 16 96/57 (74) 92 Nasal Cannula 2.00 01/17/18 04:27 98.0 88 16 90/66 (74) 97 Room Air I & O 01/17/18 07:00 Intake Total 1100 ml Balance 1100 ml Height & Weight Height: 5'1.00" Weight: 143lbs. 0.0oz. 64.334889wy; 27.0 BMI Method:Stated General Appearance: No Apparent Distress, Chronically ill HEENT: No Scleral Icterus (L), No Scleral Icterus (R); Other (dry mucus membranes) Neck: Full Range of Motion, Normal Inspection, Non Tender, Supple, Carotid Bruit Respiratory: Lungs Clear, No Respiratory Distress Cardiovascular: Regular Rate, Rhythm, No Murmur Capillary Refill: Less Than 3 Seconds Peripheral Pulses: 2+ Radial Pulses (R), 2+ Radial Pulses (L) Gastrointestinal: normal bowel sounds, non tender, soft Extremity: No Pedal Edema, Slow Capillary Refill Neurologic/Psychiatric: Alert, Disoriented (pleasantly confused) Skin: Other (multiples ulcers on bilateral lower extremities, covered in gauze , right side with purulence) Lymphatic: No Adenopathy Results Lab Laboratory Tests 01/17/18 04:37 Assessment/Plan Assessment/Plan Severe Sepsis -Aggressive IVF Zoysn, vancomycin -Await cultures PAD with multiple ischemic ulcers LE with gangrene. -Pt is transferring to [place] for vascular surgery. -Dr. Henderson is following -Jamel JUSTINO -IVF, monitor Lung mass per CT 12/12 -Will repeat as an out patient DAVY TITUS DO Jan 17, 2018 10:59
[2018-01-17] MEDS ORDERED: PIPERACILLIN SODIUM/TAZOBACTAM 4.5 GM in NS (IVPB) 100 ML IV SCH (11:00)
[2018-01-17] MEDS ORDERED: HYDROcodone/APAP 10 MG/325 MG (LORTAB) TAB PO ONE (11:04)
[2018-01-17] MEDS ORDERED: HYDROcodone/APAP 10 MG/325 MG (LORTAB) TAB PO PRN (11:15)
--- NOTE | 2018-01-17 11:41 | Wound Care Assessment ---
Wound Care Assessment Date Seen by Provider: Jan 17, 2018 Time Seen by Provider: 11:15 Chief Complaint Infection due to ischemic R foot. HPI The patient is an 87 year old female who was admitted through the emergency room with a diagnosis of sepsis and noted to have an infected ischemic R foot. The R foot is painful, cold, pulseless, paralysed, mottled with a line of demarcation at the mid-calf area. The patient underwent extensive transluminal revascularization two weeks ago per Drs. Matias and Amador. Several findings and opinions are discussed with the patient and her daughter by phone: 1. With the present level of perfusion, survival of her R leg is unlikely; 2. Intervention may or may not be successful in salvaging the limb; 3. Transluminal intervention could be provided here at [facility], but open bypass operation, (which Polly described as a fallback option when the patient was an inpatient in [place] two weeks ago), is not available at this facility; 4. If the patient requires major amputation, it will be associated with significant risk of cardiac complications and even -- she may will want to be under the care of her personal call manager; and 5. I will be glad to facilitate whichever option the patient and family decide upon. The patient and family request transfer to [place]. This is discussed with Drs. Christensen, Wandy, and Amador. Past Medical History: Admits Heart Disease, Admits Peripheral Artery Disease Smoking Status: Current Someday Smoker (Quit two weeks ago after 50+ years of heavy smoking.) Recreational Drug Use: No Alcohol Use: Denies Use Review of Systems Pulmonary: No Dyspnea Cardiovascular: No: Chest Pain Exam Vital Signs Date Time Temp Pulse Resp B/P (MAP) Pulse Ox O2 Delivery O2 Flow Rate FiO2 01/17/18 10:00 100 17 105/59 (74) 100 Nasal Cannula 2.00 01/17/18 09:07 97.6 Capillary Refill : Less Than 3 Seconds General Appearance: moderate distress Respiratory: no respiratory distress Extremities: other (cold mottled pulseless paralysed R foot with a demarcation line at mid-calf.) Results Laboratory Tests 01/17/18 04:37: White Blood Count 17.4H, Red Blood Count 4.13L, Hemoglobin 12.9, Hematocrit 39, Mean Corpuscular Volume 95, Mean Corpuscular Hemoglobin 31, Mean Corpuscular Hemoglobin Concent 33, Red Cell Distribution Width 17.2H, Platelet Count 320, Mean Platelet Volume 10.9H, Neutrophils (%) (Auto) 84H, Lymphocytes (%) (Auto) 8L, Monocytes (%) (Auto) 7, Eosinophils (%) (Auto) 0, Basophils (%) (Auto) 0, Neutrophils # (Auto) 14.6H, Lymphocytes # (Auto) 1.4, Monocytes # (Auto) 1.3H, Eosinophils # (Auto) 0.0, Basophils # (Auto) 0.0, Neutrophils % (Manual) 76, Lymphocytes % (Manual) 9, Monocytes % (Manual) 12, Eosinophils % (Manual) 0, Basophils % (Manual) 0, Band Neutrophils 2, Reactive Lymphocytes 1, Anisocytosis SLIGHT, Prothrombin Time 19.9H, INR Comment 1.7H, Activated Partial Thromboplast Time 35, Sodium Level 141, Potassium Level 3.5L, Chloride Level 102, Carbon Dioxide Level 26, Anion Gap 13, Blood Urea Nitrogen 43H, Creatinine 1.35H, Estimat Glomerular Filtration Rate 37, BUN/Creatinine Ratio 32 , Glucose Level 79, Lactic Acid Level 2.39*H, Calcium Level 8.7, Corrected Calcium 8.9, Total Bilirubin 0.9, Aspartate Amino Transf (AST/SGOT) 29, Alanine Aminotransferase (ALT/SGPT) 28, Alkaline Phosphatase 88, Total Protein 6.2L, Albumin 3.7 01/17/18 04:55: Urine Color YELLOW, Urine Clarity CLEAR, Urine pH 6, Urine Specific [place] 1.015L, Urine Protein 1+H, Urine Glucose (UA) NEGATIVE, Urine Ketones 1+H, Urine Nitrite NEGATIVE, Urine Bilirubin NEGATIVE, Urine Urobilinogen NORMAL, Urine Leukocyte Esterase 1+H, Urine RBC (Auto) NEGATIVE, Urine RBC NONE, Urine WBC 0-2, Urine Squamous Epithelial Cells 2-5, Urine Crystals NONE, Urine Bacteria TRACE, Urine Casts PRESENT, Urine Hyaline Casts 2-5H, Urine Mucus NEGATIVE, Urine Culture Indicated NO 01/17/18 07:35: Lactic Acid Level 3.98*H 01/17/18 11:09: Lactic Acid Level 1.87 Microbiology 01/17/18 Urine Culture - Preliminary, Resulted Sent To [facility] Microbiology 01/17/18 Urine Culture - Preliminary, Resulted Sent To [facility] Assessment/Plan/Dx 1. Infected, ischemic R foot. 2. Peripheral arterial disease, with critical limb ischemia. 3. Coronary artery disease. 4. Sepsis due to infected R foot. Plan: The patient and family's preference has been discussed with the attending physician and Dr. Saba. ALIDA HEADLEY MD Jan 17, 2018 11:41
--- NOTE | 2018-01-17 13:30 | Short Stay Summary-Hospitalist ---
History of Present Illness HPI/Chief Complaint Pt is an 87yoCF with a PMH of PAD with critical limb ischemia who presented to the ER from her NH with complaints of a fall. She does not remember falling and is slightly confused during my exam. Her only complaint is that she is very cold. She really provides no other history. She was recently at [facility] for a prolonged period of time due to her PAD but she has no recollection of what was done for her there. On presentation here she was found to be mildly hypotensive with tachycardia and leukocytosis. Her lower extremity wounds were concerning for infection and she was admitted to the ICU for severe sepsis. Exam Limitations: clinical condition Date Seen 01/17/18 Time Seen by Provider: 13:25 Attending Physician Hernesto Bliss MD PCP Krish Saba MD Referring Physician Date of Admission Jan 17, 2018 at 5:50 am Home Medications & Allergies Home Medications Reviewed patient Home Medication Reconciliation performed by pharmacy medication reconciliations medical coding technician and/or nursing. Patients Allergies have been reviewed. Allergies Allergies Coded Allergies codeine (Unverified Allergy, Mild, sore throat, 12/09/17) levofloxacin (Verified Allergy, Unknown, 12/09/17) sulfamethoxazole (Verified Adverse Reaction, Unknown, RASH, 11/02/17) trimethoprim (Verified Adverse Reaction, Unknown, RASH, 11/02/17) Past Vwhovqo-Fdaoml-Zqxdxe Hx Past Med/Social Hx: Reviewed Nursing Past Med/Soc Hx Patient Social History Marrital Status: Alcohol Use: Denies Use Recreational Drug Use: No Smoking Status: Former Smoker Former Smoker, Quit: Nov 11, 2017 Type Used: Cigars 2nd Hand Smoke Exposure: No Physical Abuse Screen: No Sexual Abuse: No Recent Foreign Travel: No Contact w/other who traveled: No Recent Hopitalizations: No Recent Infectious Disease Expo: No Immunizations Up To Date Tetanus Booster (TDap): Unknown Date of Pneumonia Vaccine: October 06, 2014 Seasonal Allergies Seasonal Allergies: No Past Medical History Surgeries: CABG Cardiac: Atrial Fibrillation, High Cholesterol, Hypertension PAD Neurological: TIA Reproductive: No Sexually Transmitted Disease: No HIV/AIDS: No Musculoskeletal: Arthritis, Gout Hearing Impairment: Denies History of Blood Disorders: No Family History Reviewed Nursing Family Hx Patient reports no known family medical history. No Pertinent Family Hx Review of Systems Constitutional: No chills, No fever EENTM: No blurred vision, No double vision, No nose congestion, No throat pain Respiratory: No cough, No dyspnea on exertion, No short of breath Cardiovascular: No chest pain, No edema, No palpitations Gastrointestinal: No abdominal pain, No constipation, No diarrhea, No nausea, No vomiting Genitourinary: No dysuria, No frequency Musculoskeletal: see HPI Skin: No lesions, No rash Psychiatric/Neurological: Denies Headache, Denies Numbness, Denies Tingling Physical Exam Physical Exam Vital Signs Vital Signs - First Documented 01/17/18 01/17/18 04:27 06:33 Temp 98.0 Pulse 88 Resp 16 B/P (MAP) 90/66 (74) Pulse Ox 97 O2 Delivery Room Air O2 Flow Rate 2.00 Capillary Refill : Less Than 3 Seconds Height, Weight, BMI Height: 5'1.50" Weight: 133lbs. 1.0oz. 60.326852yy; 24.7 BMI Method:Stated General Appearance: No Apparent Distress, Chronically ill HEENT: No Scleral Icterus (L), No Scleral Icterus (R); Other Respiratory: Lungs Clear, No Respiratory Distress Cardiovascular: Regular Rate, Rhythm, No Murmur Gastrointestinal: Normal Bowel Sounds, Soft Extremity: No Pedal Edema, Slow Capillary Refill Neurologic/Psychiatric: Alert, Disoriented (pleasantly confused) Skin: Other (multiple ischemia ulcers on bilateral lower extremiteis, right worse than left, large right wound with purulence on foot) Results Results/Procedures Labs Laboratory Tests 01/17/18 04:37 Patient resulted labs reviewed. Imaging: Reviewed Imaging Report Short Stay Diagnosis Discharge Diagnosis-Short Stay Admission Diagnosis Severe Sepsis Final Discharge Diagnosis Severe Sepsis Conclusion Plan See below Diagnosis/Problems Diagnosis/Problems (1) Severe sepsis Status: Acute Assessment & Plan: Tachycardic with leukocytosis Likely source in leg wounds Wound Care consulted, called and discussed with Dr Cook who will see patient Zosyn started in ER Will add Vanc as well Await cultures Discussed with Dr Henderson and Dr cook and given ischemia likely cause of wounds and thus infection would benefit from vascular evaluation for any limb sparing procedures, if unable may need amputation Discussed with patient and offered transfer along with staying here for comfort measures, she elected transfer to tertiary center for "any chance" she could get (2) PAD (peripheral artery disease) Assessment & Plan: Discussed with Dr Henderson, appreciate recs Will attempt to get records from [facility] as patient unsure of what was done there Continue on Xarelto Transfer to [facility] Dr Cook discussed case with Dr English who accept patient in transfer (3) Acute kidney injury (nontraumatic) Status: Acute Assessment & Plan: Continue IVF Monitor I/O with butler (4) Fall Status: Acute Assessment & Plan: CT head negative Pelvis XR negative Qualifiers: Qualified Codes: W19.XXXA - Unspecified fall, initial encounter Clinical Quality Measures DVT/VTE Risk/Contraindication: Risk Factor Score Per Nursin RFS Level Per Nursing on Admit: 4+=Very High CHAZ HARDY MD Jan 17, 2018 13:30
[2018-01-17 13:58] VITALS: BP 105/59
[2018-01-17] MEDS ORDERED: RIVAROXABAN 15 MG TABLET (XARELTO) PO SCH (17:00)
[2018-01-17] MEDS ORDERED: ATORVASTATIN 40 MG (LIPITOR) TABLET PO SCH (21:00)
[2018-01-18] MEDS ORDERED: POTASSIUM CL 10MEQ/50ML IVPB 50 ML IV SCH (06:00)
[2018-01-18] MEDS ORDERED: MAGNESIUM 1 GM/100 ML IVPB 100 ML IV SCH (06:00)
[2018-01-18] MEDS ORDERED: KCL 20 MEQ TAB (K-DUR) PO SCH (06:00)
[2018-01-18] MEDS ORDERED: VANCOMYCIN 1 GM/NS 250 ML IVPB IV SCH ×2 (08:00)
[2018-01-19] MEDS ORDERED: TROUGH ORDER-PHARMACY XX NR (07:00)
== END 2018-01-17 13:58 | disposition short-term general hospital (02) | DRG 872 ==
LOC: EDUNIT# 04:17 → ER 04:18 → ICU 05:50
PROVIDERS: ADMIT Internal Medicine; ATTEND Internal Medicine
DX: A41.9 Sepsis, unspecified organism (principal); R65.20 Severe sepsis without septic shock; I70.235 Atherosclerosis of native arteries of right leg with ulceration of other part of foot; I70.261 Atherosclerosis of native arteries of extremities with gangrene, right leg; L97.519 Non-pressure chronic ulcer of other part of right foot with unspecified severity; I70.245 Atherosclerosis of native arteries of left leg with ulceration of other part of foot; L97.529 Non-pressure chronic ulcer of other part of left foot with unspecified severity; N17.9 Acute kidney failure, unspecified; I48.0 Paroxysmal atrial fibrillation; E78.5 Hyperlipidemia, unspecified; I10 Essential (primary) hypertension; I25.10 Atherosclerotic heart disease of native coronary artery without angina pectoris; R79.1 Abnormal coagulation profile; R91.8 Other nonspecific abnormal finding of lung field; W19.XXXA Unspecified fall, initial encounter; Y92.129 Unspecified place in nursing home as the place of occurrence of the external cause; Z87.891 Personal history of nicotine dependence; Z79.01 Long term (current) use of anticoagulants; Z79.02 Long term (current) use of antithrombotics/antiplatelets; Z79.82 Long term (current) use of aspirin; Z95.1 Presence of aortocoronary bypass graft
CPT/HCPCS: 36415; 70450; 71045; 72125; 72170; 80053; 81000; 83605; 85007; 85027; 85610; 85730; 87040; 87081; 87088; 96361; 96365